=== PATIENT | male | born 1960 | race Caucasian/White ===

== ENCOUNTER → 2017-02-03 | Outpatient (CLI) | payer OTHER ==
[~2017-02-03] MED LIST: AMT10T PO; ASP81CT PO; ATOR10TA66 PO; ATRV10T PO; CARV12.52 PO; CATHETER FLUSH 10 ML SYR IV PRN; CEPH500C PO; DOXY-233 PO; DXCC100C PO; ENAL2.5T PO; ENAL20TA76 PO; FURO40TA4 PO; GLIM2TAB PO; GLIM4TAB PO; GLMP4T PO; GLYBURIDE; HYDR1TAB PO; INSU100I10 SQ; INSU100I34 SQ; INSU100V6 SQ; LEVO500T69 PO; METO-272 PO; METR500T PO; MTF500T PO; MTP50T PO; OXYC-12 PO; POTA99TA7 PO; RANI75TA30 PO; SACU1TAB PO; SPRN25T PO; TAMS0.4C2 PO; TERA5CAP10 PO; TICA90TA PO; TRIA1CAP4 PO; TRZS2T PO; VLS80C PO; [UNRECOGNIZED DRUG - CODE] PO
[2017-02-03 09:01] VITALS: BP 148/94
[2017-02-03 09:14] VITALS: BP 217/120
--- NOTE | 2017-02-04 08:45 | STRESS TEST ---
DATE OF SERVICE: 02/03/2017 EXERCISE MYOVIEW STRESS TEST REPORT REFERRING PHYSICIAN: In summary, the patient started exercising with a baseline heart rate, blood pressure and EKG mentioned above. He was able to exercise for a total of 7 minutes and 45 seconds on standard Iván protocol, achieving maximum heart rate of 150 beats per minute which was 91% of maximum expected heart rate. With peak exercise level blood pressure was 244/129. EKG was showing nondiagnostic changes. During recovery, heart rate and blood pressure returned to baseline. EKG returned to baseline. The resting and stress images were reviewed and compared in the short axis, horizontal long axis, and vertical long axis views. Review of the images showed decreased uptake involving the whole inferior wall and inferoapical segment with mild reversibility. SSS5, SDS 5, TID value 1.21. On the gated images, the left ventricle appeared to be dilated with diffuse left ventricular hypokinesia calculated ejection fraction 28%. CONCLUSION: 1. Good exercise tolerance a total of 7 minutes and 45 seconds on standard Iván protocol, total of 9.3 METS achieving 91% of maximum expected heart rate. 2. Baseline EKG abnormality with nondiagnostic EKG changes with exercise returned to baseline during recovery. 3. Hypertensive response to exercise, returned to baseline during recovery. 4. Reversible ischemia involving the whole inferior wall and inferolateral wall. 5. Dilated left ventricle with transient ischemic dilatation with TID value 1.21. 6. Diffuse left ventricular hypokinesia with a calculated ejection fraction 28%. Job ID: [id number] DocumentID: [id number] Dictated Date: 02/03/2017 14:41:27 Sterile Proc Tech Date: 02/03/2017 18:13:22 Dictated By: MICHELLE CANSECO MD
== END ==
LOC: CARD 07:19
PROVIDERS: ATTEND Internal Medicine Cardiovascular Disease
DX: I25.10 Atherosclerotic heart disease of native coronary artery without angina pectoris (principal); I42.9 Cardiomyopathy, unspecified; E11.9 Type 2 diabetes mellitus without complications; I10 Essential (primary) hypertension; R91.1 Solitary pulmonary nodule
CPT/HCPCS: 78452; 93017

== ENCOUNTER 2017-02-05 09:01 | Day surgery (SDC) | payer OTHER ==
[~2017-02-05] VITALS: Ht 172.7 cm; Wt 107.5 kg
[2017-02-05] VITALS (7 sets, daily range): BP systolic 105–174; BP diastolic 39–108
[~2017-02-05 09:01] MED LIST changes: -CATHETER FLUSH 10 ML SYR IV PRN; -INSU100I34 SQ; -METO-272 PO; -SACU1TAB PO; -TAMS0.4C2 PO
[2017-02-05] MEDS ORDERED: NS IV 1000 ML 1,000 ML ONE (09:04)
[2017-02-05] MEDS ORDERED: HEParin (CATH LAB) 2,000 ML IV ONE (09:04)
--- NOTE | 2017-02-05 09:36 | Diagnostic Imaging Report ---
INDICATION: Pre-catheter evaluation. COMPARISON: 05/08/2014. FINDINGS: Upright portable view of the chest is obtained. Heart size is normal. The pulmonary vessels appear unremarkable. There is no pneumothorax, mediastinal widening or pleural fluid. Lungs are clear. IMPRESSION: Negative chest. Dictated by: Dictated on workstation # [id number]
[2017-02-05 09:40] LABS: MEAN PLATELET VOLUME 12.6 FL (7.4-10.4); RED BLOOD COUNT 5.47 10^6/uL (4.35-5.85); RED CELL DISTRIBUTION WIDTH 13.1 % (10.0-14.5); WHITE BLOOD COUNT 8.7 10^3/uL (4.3-11.0)
[2017-02-05 09:44] LABS: KETONES,URINE 1+ (NEGATIVE); LEUKOCYTE ESTERASE ,URINE 1+ (NEGATIVE); NITRITE,URINE NEGATIVE (NEGATIVE); PH,URINE 5 (5-9); PROTEIN,URINE 3+ (NEGATIVE); UROBILINOGEN,URINE NORMAL (NORMAL)
[2017-02-05] MEDS ORDERED: NS IV 1000 ML 1,000 ML IV SCH (09:45)
[2017-02-05] MEDS ORDERED: fentaNYL INJECTION 100 MCG/2 ML AMP ONE (09:45)
[2017-02-05] MEDS ORDERED: MIDAZOLAM 5 MG/5 ML (VERSED) VIAL ONE (09:45)
[2017-02-05] MEDS ORDERED: FURO40TA4 PO (09:47)
[2017-02-05] MEDS ORDERED: INSU100I34 SQ ×2 (09:47)
[2017-02-05] MEDS ORDERED: METO-370 PO (09:47)
[2017-02-05] MEDS ORDERED: TAMS0.4C2 PO (09:47)
[2017-02-05] MEDS ORDERED: SACU1TAB PO (09:47)
[2017-02-05] MEDS ORDERED: ATOR10TA66 PO (09:47)
[2017-02-05 09:52] LABS: PROTHROMBIN TIME PATIENT 12.8 SEC (12.2-14.7)
[2017-02-05 09:58] LABS: BILIRUBIN,URINE 1+ (NEGATIVE)
[2017-02-05 10:04] LABS: ALANINE AMINOTRANSFERASE 21 U/L (0-55); ALBUMIN 3.8 GM/DL (3.2-4.5); ANION GAP 10 MMOL/L (5-14); ASPARTATE AMINO TRANSFERASE 16 U/L (5-34); BILIRUBIN,TOTAL 0.8 MG/DL (0.1-1.0); BLOOD UREA NITROGEN 16 MG/DL (7-18); BUN/CREATININE RATIO 13; CALCIUM 9.4 MG/DL (8.5-10.1); CARBON DIOXIDE 22 MMOL/L (21-32); CHLORIDE 107 MMOL/L (98-107); CHOLESTEROL 157 MG/DL (< 200); CREATININE SERUM 1.23 MG/DL (0.60-1.30); DIRECT LDL 99 MG/DL (1-129); GFR ESTIMATED > 60; GLUCOSE 194 MG/DL (70-105); POTASSIUM 4.5 MMOL/L (3.6-5.0); SODIUM 139 MMOL/L (135-145); TOTAL PROTEIN 6.7 GM/DL (6.4-8.2); TRIGLYCERIDES 96 MG/DL (<150); VLDL CHOLESTEROL 19 MG/DL (5-40)
[2017-02-05] MEDS ORDERED: HEParin 1000 UNIT/ML (10ML VIAL) FOR BOLUS ONE (10:28)
[2017-02-05] MEDS ORDERED: NITROGLYCERIN DRIP 25 MG/D5W 250 ML IV ONE (10:28)
--- NOTE | 2017-02-05 10:28 | Cardiac Procedure Note-CS/ASA ---
Pre-Procedure Note Pre-Op Procedure Note H&P Reviewed The H&P was reviewed, patient examined and no changes noted. Date H&P Reviewed: Feb 05, 2017 Time H&P Reviewed: 10: Conscious Sedation Pre-Proced Time Reviewed: ASA Class: 3 Airway Mallampati Classification: (gambell appropriate class) I. II. III, IV Lungs Heart ASA score ASA 1: a normal healthy patient ASA 2: a patient with a mild systemic disease (mid diabetes, controlled hypertension, obesity x ASA 3: a patient with a severe systemic disease that limits activity (angina , COPD, prior Myocardial infarction) ASA 4: a patient with an incapacitating disease that is a constant threat to life (CHF, renal failure) ASA 5: a moribund patient not expected to survive 24 hrs. (ruptured aneurysm) ASA 6: a declared brain patient whose organs are being harvested. For emergent operations, add the letter E after the classification Grade 3 Sedation Plan: Analgesia, Amnesia, Plan communicated to team members, Discussed options with patient/fam, Discussed risks with patient/fam Note The patient is an appropriate candidate to undergo the planned procedure, sedation, and anesthesia. The patient immediately re-assessed prior to indication. MICHELLE CANSECO MD Feb 05, 2017 10:27
[2017-02-05] MEDS ORDERED: ASPIRIN 81 MG CHEW (CHILDREN'S ASA) ONE (10:52)
[2017-02-05] MEDS ORDERED: CLOPIDOGREL 300 MG (PLAVIX) TABLET PO ONE (10:52)
[2017-02-05] MEDS ORDERED: PATIENT MAY USE OWN MEDS, ALL PO SCH (11:00)
--- NOTE | 2017-02-05 11:06 | Cardiac Cath Report ---
Cardiac Cath Report Physician (s)/Child Life Therapist (s) Physician MICHELLE CANSECO MD Pre-Procedure Diagnosis Pre-Procedure Diagnosis: DYSKINESIA Post-Procedure Note Procedure Start Date: Feb 05, 2017 Procedure Start Time: 10:15 Name of Procedure: left heart catheterization, stent to the circumflex artery Findings/Procedure Note PROCEDURE NOTE: After explaining the procedure to the patient, all pros and cons were explained, all questions were answered. The patient signed the consent and then she was placed on the cardiac catheterization laboratory. The patient was placed on the cardiac catheterization laboratory. Groin was prepped SL fashion local anesthesia was used. Sheath placed in the artery. Colt right and left catheter were used to access the coronary system. Pigtail was used to access the left ventricular cavity, pressure was measured, no left ventricular gram was done Patient had severe stenosis at the mid circumflex artery and distal right coronary artery, I decided to proceed with staged intervention. FL guide was used to access the left carotid system, 7000 units of heparin were given, BMW wire was advanced with the circumflex artery that has 99 percent stenosis, predilatation with 2.515 mm Emerge balloon, then a bare metal stent 3.018 mm integrity deployed up to 3.25 mm with excellent results and no residual stenosis , the ostium of the second obtuse marginal branch that is a small artery was pinched. At the end of the procedure the sheath was removed. Closure device Was used FINDINGS: Hemodynamics LV 135/20 and diastolic pressure of 20 Aorta 138/79 mean of 104 ANATOMY: Left Main is of obstructive disease Left Anterior Descending has a patent stent with 40 percent in-stent restenosis mild disease diffusely Left Circumflex has 99 percent stenosis at the midportion, successful angioplasty then stent deployment using Emerge balloon and then bare-metal stent using integrity 3.018 mm stent expanded under 12 jose alejandro to 3.25 mm with excellent results and no residual stenosis, second obtuse marginal branch that has some stenosis was tinged but it is a small artery not amendable to intervention Right Coronory Artery has 95 percent stenosis distally which will be treated at a later point LV Gram was not done CONCLUSION: 1. 99 percent stenosis at the mid to distal circumflex artery successful balloon angioplasty then stent deployment using bare-metal stent integrity 3.0 18 mm expanded to 3.5 mm with excellent results and no residual stenosis, second obtuse marginal branch that has some stenosis at the beginning of the procedure was pinched but it is fairly small artery not amendable to intervention 2. 95 percent stenosis at the distal right coronary artery which will be addressed at a later point 3. Patent stent in the mid LAD known to have 3.0 stent that has 40-50 percent stenosis nonobstructive disease 4. No left ventriculogram was done, mildly elevated left ventricular end- diastolic pressure DISCUSSION AND RECOMMENDATION: Patient has multivessel coronary artery disease, I decided to stage the intervention due to the large amount of contrast used and due to the fact that patient has recent intracranial hemorrhage due to head trauma and I will try to avoid aggressive anticoagulation, patient will be loaded with Plavix today and I will consider intervention on the right coronary artery tomorrow, meanwhile I will continue maximizing medical therapy Anesthesia Type: Conscious Sedation Estimated blood loss (mL): 25 ml Contrast Amount: 98 ml Total Radiation Dose: 1038 mGy Post-Procedure Diagnosis Post-operative diagnosis: CAD MICHELLE CANSECO MD Feb 05, 2017 11:06
[2017-02-05] MEDS ORDERED: FUROSEMIDE 40 MG (LASIX) TAB ONE (11:55)
[2017-02-05] MEDS ORDERED: meTOproloL SUCCINATE 50 MG (TOPROL XL) TAB PO ONE (11:55)
[2017-02-05] MEDS: NS IV 1000 ML 1,000 ML IV SCH ×2 (12:04→21:07)
[2017-02-05] MEDS ORDERED: LOSARTAN 50 MG (COZAAR) TAB PO NR (17:11)
[2017-02-05] MEDS ORDERED: meTOprolol 5 MG/5 ML (LOPRESSOR) VIAL IV NR (17:11)
[2017-02-05] MEDS: AMITRIPTYLINE 10 MG (ELAVIL) TAB PO SCH (21:02)
[2017-02-05] MEDS: FAMOTIDINE 20 MG (PEPCID) TABLET PO SCH (21:02)
[2017-02-05] MEDS: ATORVASTATIN 10 MG (LIPITOR) TABLET PO SCH (21:02)
[2017-02-05] MEDS: inSUlin DETERMIR 1 UNIT/0.01 ML (LEVEMIR) CHARGE PER UNIT SQ SCH (21:06)
[2017-02-05] MEDS ORDERED: meTOprolol 5 MG/5 ML (LOPRESSOR) VIAL IV ONE (21:30)
[2017-02-06] VITALS (13 sets, daily range): BP systolic 137–189; BP diastolic 81–112
[2017-02-06 04:11] LABS: MEAN PLATELET VOLUME 13.2 FL (7.4-10.4); RED BLOOD COUNT 5.12 10^6/uL (4.35-5.85); RED CELL DISTRIBUTION WIDTH 13.1 % (10.0-14.5); WHITE BLOOD COUNT 8.5 10^3/uL (4.3-11.0)
[2017-02-06 04:52] LABS: ANION GAP 9 MMOL/L (5-14); BLOOD UREA NITROGEN 13 MG/DL (7-18); BUN/CREATININE RATIO 11; CALCIUM 8.8 MG/DL (8.5-10.1); CARBON DIOXIDE 24 MMOL/L (21-32); CHLORIDE 107 MMOL/L (98-107); CREATININE SERUM 1.16 MG/DL (0.60-1.30); GFR ESTIMATED > 60; GLUCOSE 152 MG/DL (70-105); POTASSIUM 3.8 MMOL/L (3.6-5.0); SODIUM 140 MMOL/L (135-145)
[2017-02-06] MEDS: NS IV 1000 ML 1,000 ML IV SCH ×4 (07:46→21:58)
[2017-02-06] MEDS: FUROSEMIDE 40 MG (LASIX) TAB PO SCH (07:47)
[2017-02-06] MEDS: FAMOTIDINE 20 MG (PEPCID) TABLET PO SCH ×2 (07:47→21:26)
[2017-02-06] MEDS: ASPIRIN E.C. 81 MG (ECOTRIN) TAB PO SCH (07:47)
[2017-02-06] MEDS: meTOproloL SUCCINATE 50 MG (TOPROL XL) TAB PO SCH (07:47)
[2017-02-06] MEDS: CLOPIDOGREL 75 MG (PLAVIX) TABLET PO SCH (07:47)
[2017-02-06] MEDS ORDERED: LOSARTAN 50 MG (COZAAR) TAB PO ONE (08:00)
[2017-02-06] MEDS ORDERED: ALFUZOSIN HCL 10 MG TAB (UROXATRAL) PO SCH ×2 (09:00→18:00)
[2017-02-06] MEDS ORDERED: MIDAZOLAM 5 MG/5 ML (VERSED) VIAL ONE (09:13)
[2017-02-06] MEDS ORDERED: fentaNYL INJECTION 100 MCG/2 ML AMP ONE (09:13)
[2017-02-06] MEDS ORDERED: HEParin (CATH LAB) 2,000 ML IV ONE (09:14)
[2017-02-06] MEDS ORDERED: NS IV 1000 ML 0 ML ONE (09:14)
[2017-02-06] MEDS ORDERED: NITROGLYCERIN DRIP 25 MG/D5W 250 ML IV ONE (09:42)
[2017-02-06] MEDS ORDERED: HEParin 1000 UNIT/ML (10ML VIAL) FOR BOLUS ONE (09:42)
--- NOTE | 2017-02-06 09:50 | Cardiology Progress Note ---
Subjective Date Seen by Provider: Feb 06, 2017 Time Seen by Provider: 09:48 Subjective/Events-last exam patient is feeling well, blood pressure has been elevated, had some difficulties achieving adequate blood pressure control. Review of Systems General: No Chills, No Night Sweats, No Fatigue, No Malaise, No Appetite, No Other HEENT: No Head Aches, No Visual Changes, No Eye Pain, No Ear Pain, No Dysphasia , No Sinus Congestion, No Post Nasal Drip, No Sore Throat, No Other Pulmonary: No Dyspnea, No Cough, No Pleuritic Chest Pain, No Other Cardiovascular: No: Chest Pain, Edema, Lt Headedness, Orthopnea, Other, Palpitations, Paroxysmal Noc. Dyspnea Objective-Cardiology Exam Last Set of Vital Signs Vital Signs 02/06/17 07:44 Temp 98.9 Pulse 69 Resp 16 B/P (MAP) 189/112 Pulse Ox 96 O2 Delivery Room Air Capillary Refill : Less Than 3 Seconds I&O Intake and Output 02/06/17 00:00 Intake Total 3780 ml Output Total 850 ml Balance 2930 ml Intake Oral 2780 ml IV Total 1000 ml Output Urine Total 850 ml # Voids 2 # Bowel Movements 1 General: Alert, Oriented X3, Cooperative HEENT: Atraumatic, PERRLA Neck: Supple, No JVD, No Thyromegaly Lungs: Clear to Auscultation, Normal Air Movement Heart: Regular Rate, Normal S1, Normal S2, No Murmurs Abdomen: Normal Bowel Sounds, Soft, No Tenderness, No Hepatosplenomegaly, No Masses Extremities: No Clubbing, No Cyanosis, No Edema, Normal Pulses, No Tenderness/ Swelling Skin: No Rashes, No Breakdown, No Significant Lesion Neuro: Normal Gait, Normal Speech, Strength at 5/5 X4 Ext, Normal Tone, Sensation Intact Psych/Mental Status: Mental Status NL, Mood NL Results Lab Laboratory Tests 02/06/17 03:57 A/P-Cardiology Admission Diagnosis Coronary artery disease Congestive heart failure, chronic compensated left ventricular systolic dysfunction, ischemic cardiomyopathy Hypertension Hyperlipidemia Diabetes mellitus Tobaccoism Assessment/Plan Coronary artery disease, status post stenting to the circumflex artery, planning to proceed with stenting of the right coronary artery, has a patent stent in the LAD. Next Congestive heart failure, chronic compensated left ventricular systolic dysfunction, ischemic cardiomyopathy, ejection fraction was 28 percent Hypertension, resistant blood pressure, planning to start Entresto today in addition to the beta blockers Hyperlipidemia, continue on statin Status post subarachnoid hemorrhage secondary to head trauma, trying to avoid aggressive anticoagulation, so far he is tolerating aspirin and Plavix, I will avoid IIb /IIIa Diabetes mellitus, followed and managed by primary care physiciannext Tobaccoism, educated on avoiding tobacco product MICHELLE CANSECO MD Feb 06, 2017 09:50
--- NOTE | 2017-02-06 09:51 | Cardiac Procedure Note-CS/ASA ---
Pre-Procedure Note Pre-Op Procedure Note H&P Reviewed The H&P was reviewed, patient examined and no changes noted. Date H&P Reviewed: Feb 06, 2017 Time H&P Reviewed: 09:50 Conscious Sedation Pre-Proced Time Reviewed: 09:50 ASA Class: 3 Airway Mallampati Classification: (chicken [place] appropriate class) I. II. III, IV Lungs Heart ASA score ASA 1: a normal healthy patient ASA 2: a patient with a mild systemic disease (mid diabetes, controlled hypertension, obesity x ASA 3: a patient with a severe systemic disease that limits activity (angina , COPD, prior Myocardial infarction) ASA 4: a patient with an incapacitating disease that is a constant threat to life (CHF, renal failure) ASA 5: a moribund patient not expected to survive 24 hrs. (ruptured aneurysm) ASA 6: a declared brain patient whose organs are being harvested. For emergent operations, add the letter E after the classification Grade 3 Sedation Plan: Analgesia, Amnesia, Plan communicated to team members, Discussed options with patient/fam, Discussed risks with patient/fam Note The patient is an appropriate candidate to undergo the planned procedure, sedation, and anesthesia. The patient immediately re-assessed prior to indication. MICHELLE CANSECO MD Feb 06, 2017 09:50
--- NOTE | 2017-02-06 10:40 | Cardiac Cath Report ---
Cardiac Cath Report Physician (s)/Business Excellence Leader (s) Physician MICHELLE CANSECO MD Pre-Procedure Diagnosis Pre-Procedure Diagnosis: DYSKINESIA Post-Procedure Note Procedure Start Date: Feb 06, 2017 Procedure Start Time: 10:35 Name of Procedure: PTCA and stent to the right coronary artery Findings/Procedure Note PTCA patient was prepped in sterile fashion, local anesthesia applied, 6 Pashto sheath was placed in the right femoral artery, Colt right guide was used, patient was given 6000 units of heparin, BMW wire was advanced through the right coronary artery that is known to have 90 percent stenosis, predilatation with 2.512 mm balloon then I deployed a bare metal stent integrity 3.015 mm expanded to 3.25 with excellent results, no residual stenosis. At the end of the procedure minx device the point Artery RCA Pre procedure stenosis 90 Post procedure stenosis 0 Conclusion: Successful balloon angioplasty and stenting to the distal right coronary artery with excellent results, no residual stenosis using bare-metal stent 3.015 mm integrity stent Anesthesia Type: Conscious Sedation Estimated blood loss (mL): 25 ml Contrast Amount: 70 ml Total Radiation Dose: 1093 mGy Post-Procedure Diagnosis Post-operative diagnosis: coronary artery disease MICHELLE CANSECO MD Feb 06, 2017 10:40
[2017-02-06] MEDS ORDERED: PATIENT MAY USE OWN MEDS, ALL PO SCH (10:45)
[2017-02-06] MEDS: inSUlin DETERMIR 1 UNIT/0.01 ML (LEVEMIR) CHARGE PER UNIT SQ SCH ×2 (12:20→21:26)
[2017-02-06] MEDS: ATORVASTATIN 10 MG (LIPITOR) TABLET PO SCH (21:26)
[2017-02-06] MEDS: AMITRIPTYLINE 10 MG (ELAVIL) TAB PO SCH (21:26)
[2017-02-06] MEDS: SACUBITRIL/VALSARTAN 24/26 MG (ENTRESTO) TABLET PO SCH (21:26)
[2017-02-07] MEDS: NS IV 1000 ML 1,000 ML IV SCH ×2 (03:22→06:40)
[2017-02-07 04:00] VITALS: BP 161/96
[2017-02-07 05:47] LABS: MEAN PLATELET VOLUME 13.6 FL (7.4-10.4); RED BLOOD COUNT 5.25 10^6/uL (4.35-5.85); RED CELL DISTRIBUTION WIDTH 12.9 % (10.0-14.5); WHITE BLOOD COUNT 7.9 10^3/uL (4.3-11.0)
[2017-02-07 06:04] LABS: ANION GAP 11 MMOL/L (5-14); BLOOD UREA NITROGEN 12 MG/DL (7-18); BUN/CREATININE RATIO 10; CARBON DIOXIDE 24 MMOL/L (21-32); CHLORIDE 104 MMOL/L (98-107); CREATININE SERUM 1.18 MG/DL (0.60-1.30); GFR ESTIMATED > 60; GLUCOSE 157 MG/DL (70-105); POTASSIUM 3.6 MMOL/L (3.6-5.0); SODIUM 139 MMOL/L (135-145)
[2017-02-07 08:18] VITALS: BP 156/92
[2017-02-07] MEDS: FUROSEMIDE 40 MG (LASIX) TAB PO SCH (09:01)
[2017-02-07] MEDS: FAMOTIDINE 20 MG (PEPCID) TABLET PO SCH (09:01)
[2017-02-07] MEDS: SACUBITRIL/VALSARTAN 24/26 MG (ENTRESTO) TABLET PO SCH (09:01)
[2017-02-07] MEDS: meTOproloL SUCCINATE 50 MG (TOPROL XL) TAB PO SCH (09:01)
[2017-02-07] MEDS: CLOPIDOGREL 75 MG (PLAVIX) TABLET PO SCH (09:01)
[2017-02-07] MEDS: ASPIRIN E.C. 81 MG (ECOTRIN) TAB PO SCH (09:01)
[2017-02-07] MEDS: inSUlin DETERMIR 1 UNIT/0.01 ML (LEVEMIR) CHARGE PER UNIT SQ SCH (09:04)
--- NOTE | 2017-02-07 12:13 | Cardiology Discharge Summary ---
Diagnosis/Chief Complaint Date of Admission February 05, 2017 Date of Discharge February 07, 2017 Admission Diagnosis Coronary artery disease Congestive heart failure, chronic compensated left ventricular systolic dysfunction, ischemic cardiomyopathy Hypertension Hyperlipidemia Diabetes mellitus Tobaccoism Discharge Diagnosis coronary artery disease Congestive heart failure, chronic compensated left ventricular systolic dysfunction, ischemic cardiomyopathy Chief Complaint/HPI Chief Complaint/HPI 56 years old gentleman with history of coronary artery disease, hypertension hyperlipidemia. Had an abnormal stress test, severe cardiomyopathy noted during stress test with baseline normal left ventricular function in the past, I proceed with cardiac catheterization as an elective procedure which showed multivessel coronary artery disease, I decided to stage the procedure to limit the amount of exposure to anticoagulation due to the recent head trauma, he tolerated the first procedure well, tolerated the second procedure well, limited exposure to contrast, I used only heparin for IV anticoagulation, he tolerated the addition of Plavix to the aspirin and he has been doing well. Planning to discharge home today Discharge Summary Hospital Course Hospital Course Coronary artery disease, cardiac catheterization showed severe stenosis at the distal circumflex artery with successful bare-metal stenting using 3.018 mm integrity stent expanded to 3.5 mm, second obtuse marginal branch has some stenosis which was pinched at the end of the procedure, fairly small artery. Severe stenosis at the distal right coronary artery was successful stenting using bare-metal stent 3.015 mm with excellent results, no residual stenosis, patent stent in the mid LAD which are known to have 3.0 mm stent, no left ventricular gram was done. I will continue on aspirin and Plavix for this time he was educated in length about condition and compliance with medicine Congestive heart failure, chronic compensated left ventricular systolic dysfunction, ischemic cardiomyopathy, ejection fraction was 28 percent, continue on current medications and monitor his arms and response Hypertension, resistant blood pressure, started on Entresto and continue beta blockers and monitor Hyperlipidemia, continue on statin Status post subarachnoid hemorrhage secondary to head trauma, trying to avoid aggressive anticoagulation, so far he is tolerating aspirin and Plavix, I will avoid IIb /IIIa Diabetes mellitus, followed and managed by primary care physicianclaire Aiken, educated on avoiding tobacco product Labs Laboratory Tests 02/05/17 09:20: Urine Specific Dewitt 1.025H, Urine Protein 3+H, Urine Glucose (UA) 2+H, Urine Ketones 1+H, Urine Bilirubin 1+H, Urine Leukocyte Esterase 1+H 02/05/17 09:34: Mean Platelet Volume 12.6H, Glucose Level 194H 02/05/17 22:20: 02/06/17 03:57: Mean Platelet Volume 13.2H, Glucose Level 152H 02/06/17 20:56: Glucometer 222H 02/07/17 05:00: Platelet Count 129L, Mean Platelet Volume 13.6H, Glucose Level 157H Procedures None. Discharge Physical Examination Allergies: Coded Allergies: No Known Drug Allergies (Unverified , 01/30/10) Vitals & I&Os Vital Signs Date Time Temp Pulse Resp B/P (MAP) Pulse Ox O2 Delivery O2 Flow Rate FiO2 02/07/17 08:18 99.2 81 18 156/92 95 Room Air General Appearance: Alert, Oriented X3, Cooperative, No Acute Distress HEENT: Atraumatic, PERRLA Respiratory: Clear to Auscultation, Normal Air Movement Cardiovascular: Regular Rate, Normal S1, Normal S2, No Murmurs Abdominal: Normal Bowel Sounds, Soft, No Tenderness, No Hepatosplenomegaly, No Masses Extremities: No Clubbing, No Cyanosis, No Edema, Normal Pulses, No Tenderness/ Swelling Skin: No Rashes, No Breakdown, No Significant Lesion Neuro: Normal Gait, Normal Speech, Strength at 5/5 X4 Ext, Normal Tone, Sensation Intact, Cranial Nerves 3-12 NL, Reflexes 2+ Psych/Mental Status: Mental Status NL, Mood NL Discharge Home Medications Reviewed and agree with Discharge Medication list on patient's Discharge Instruction sheet Instructions to Patient/Family Please see electonic discharge instructions given to patient. MICHELLE CANSECO MD Feb 07, 2017 12:13
[2017-02-07] MEDS ORDERED: CLOP75TA28 PO (12:14)
--- NOTE | 2017-02-07 12:14 | Discharge Inst-Post CATH ---
Discharge Inst-CATH Post Cardiac Cath D/C Inst Follow Up/Plan Appointment with Dr. Peraza's office next week CARDIAC CATH DISCHARGE INSTRUCTIONS *Hold Metformin for 48 hours post heart cath. ACTIVITY * Go Home directly and rest. * Limit activity of the leg (or wrist if it was used) for 7 days including aerobics, swimming, jogging, bicycling, etc. * Restrict stair-climbing for 7 days if possible, if not, climb up with your non -cath leg, then bring together on the same step. * Avoid lifting, pushing, pulling or excessive movement of the affected extremity for 7 days. * Customary sexual activity may be resumed after 2 days-use caution not to use a position that strains or causes pain to the affected extremity. * No driving for 24 hours. * NO SMOKING. * Avoid straining for bowel movements for 7 days. * Gentle walking on level ground is allowed. * Returning to work will depend on the type of procedure and the results. Your doctor will discuss this with you. CALL YOUR DOCTOR FOR ANY OF THE FOLLOWING: *If bleeding from the puncture site occurs- Apply gentle pressure to site with clean cloth and call your doctor or EMS. * If a knot or lump forms under the skin, increases in size, or causes pain. * If bruising appears to be worsening or moving further down your leg instead of disappearing. * Temperature above 101 F. CARE OF YOUR GROIN INCISION; * Bruising or purple discoloration of the skin near the puncture site is common. * You may shower only, no bathtub bathing for 5 days. Be careful to avoid slipping as your leg may feel stiff. * If a closure device was used on your femoral artery, please see the attached guide regarding care of the device and your leg. * REMOVE the dressing from your groin the next day after your procedure in the shower. CARE OF YOUR WRIST INCISION; * Bruising or purple discoloration of the skin near the puncture site is common. * You may shower. * DO NOT submerge wrist. * Remove dressing in 24 hours. MICHELLE PERAZA MD Feb 07, 2017 12:14
[2017-02-07 12:52] VITALS: BP 150/90
== END 2017-02-07 12:50 | disposition home or self-care (01) ==
LOC: CATH 09:01 → ICU 11:15 → CATH 02-07 12:50
PROVIDERS: ATTEND Internal Medicine Cardiovascular Disease
DX: R94.39 Abnormal result of other cardiovascular function study (principal); I25.10 Atherosclerotic heart disease of native coronary artery without angina pectoris; I50.22 Chronic systolic (congestive) heart failure; I25.5 Ischemic cardiomyopathy; I10 Essential (primary) hypertension; E78.5 Hyperlipidemia, unspecified; E11.9 Type 2 diabetes mellitus without complications; S09.90XS Unspecified injury of head, sequela; Z79.899 Other long term (current) drug therapy; Z79.84 Long term (current) use of oral hypoglycemic drugs; Z72.0 Tobacco use; Z95.5 Presence of coronary angioplasty implant and graft
CPT/HCPCS: 36415; 71010; 80048; 80053; 80061; 81000; 82962; 85027; 85347; 85610; 85730; 87081; 92928; 93005; 93458

== ENCOUNTER → 2017-09-29 | Outpatient (CLI) | payer OTHER ==
[~2017-09-29] MED LIST changes: +CLOP75TA28 PO; +INSU100I34 SQ; +METO-370 PO; +SACU1TAB PO; +TAMS0.4C2 PO
== END ==
LOC: CARD 12:40
PROVIDERS: ATTEND Physician Assistant
DX: I25.10 Atherosclerotic heart disease of native coronary artery without angina pectoris (principal); I50.9 Heart failure, unspecified; I11.0 Hypertensive heart disease with heart failure; E11.9 Type 2 diabetes mellitus without complications; I34.0 Nonrheumatic mitral (valve) insufficiency
CPT/HCPCS: 93306

== ENCOUNTER → 2018-03-24 | Outpatient (CLI) | payer OTHER ==
--- NOTE | 2018-03-24 12:10 | Diagnostic Imaging Report ---
CLINICAL INDICATION: Patient with hypertension. EXAMINATION: Renal ultrasound with Doppler interrogation. COMPARISON: Ultrasound of both kidneys dated 12/26/2012. FINDINGS: There is interval development of a 1.5 cm cyst involving the knj-ju[place]jg[place]ot aspect of left kidney. Otherwise, both kidneys are normal in size, shape, echogenicity and cortical thickness without hydronephrosis, stones, or other focal lesions with the right and left kidneys measuring 9.7 cm and 9.9 cm in their craniocaudal dimensions, respectively. Abdominal aorta (peak systolic velocity): 106 cm/sec Right main renal artery Doppler(peak systolic): Proximal: 122 cm/sec; 1.15 RA/AO ratio Mid: 88 cm/sec; 0.83 RA/AO ratio Distal: 51 cm/sec; 0.5 RA/AO ratio [place] RI: 0.65-0.72 Left main renal artery Doppler(peak systolic): Proximal: X cm/sec; X RA/AO ratio of note, the proximal left renal artery was obscured by bowel gas and unable to be evaluated. Mid: 60 cm/sec; 0.6 RA/AO ratio Distal: 64 cm/sec; 0.6 RA/AO ratio [place] RI: 0.67-0.72 IMPRESSION: 1: Interval development of a small left renal cyst. 2: The proximal left main renal artery was obscured by overlying bowel gas and cannot be evaluated. Otherwise, unremarkable bilateral renal ultrasound with no evidence of renal artery stenosis. Dictated by: Dictated on workstation # [id number]
== END ==
LOC: RAD 06:54
PROVIDERS: ATTEND Internal Medicine Cardiovascular Disease
DX: N28.1 Cyst of kidney, acquired (principal); I25.10 Atherosclerotic heart disease of native coronary artery without angina pectoris; I10 Essential (primary) hypertension; E11.9 Type 2 diabetes mellitus without complications; Z72.0 Tobacco use
CPT/HCPCS: 93975

== ENCOUNTER 2019-09-15 15:59 | Inpatient (IN) | payer OTHER ==
[~2019-09-15] VITALS: Ht 172.7 cm; Wt 98.0 kg
[~2019-09-15 15:59] MED LIST changes: -METO-370 PO; +METO50TA7 PO; -SACU1TAB PO; +SACU1TAB2 PO
[2019-09-15] MEDS ORDERED: NS IV 1000 ML 1,000 ML IV SCH (16:07)
[2019-09-15] MEDS ORDERED: meTOprolol 5 MG/5 ML (LOPRESSOR) VIAL IV ONE (16:15)
[2019-09-15] MEDS ORDERED: FUROSEMIDE 40 MG/4 ML INJ (LASIX) IVP ONE (16:15)
[2019-09-15 16:19] LABS: BASOPHILS % (AUTO) 0 % (0-10); EOSINOPHILS # (AUTO) 0.1 10^3/uL (0.0-0.3); EOSINOPHILS % (AUTO) 1 % (0-10); HEMATOCRIT 48 % (40-54); HEMOGLOBIN 16.7 G/DL (13.3-17.7); LYMPHOCYTES # (AUTO) 1.9 X 10^3 (1.0-4.0); LYMPHOCYTES % (AUTO) 21 % (12-44); MEAN CORPUSCULAR HEMOGLOBIN 30 PG (25-34); MEAN CORPUSCULAR HGB CONC 35 G/DL (32-36); MEAN CORPUSCULAR VOLUME 87 FL (80-99); MEAN PLATELET VOLUME 13.5 FL (7.4-10.4); MONOCYTES # (AUTO) 0.8 X 10^3 (0.0-1.0); MONOCYTES % (AUTO) 9 % (0-12); NEUTROPHILS # (AUTO) 6.3 X 10^3 (1.8-7.8); NEUTROPHILS % (AUTO) 69 % (42-75); PLATELET COUNT 158 10^3/uL (130-400); RED CELL DISTRIBUTION WIDTH 13.1 % (10.0-14.5); WHITE BLOOD COUNT 9.2 10^3/uL (4.3-11.0)
--- NOTE | 2019-09-15 16:24 | ED Dyspnea ---
General Stated Complaint: RESP DISTRESS History of Present Illness Date Seen by Provider: Sep 15, 2019 Time Seen by Provider: 16:10 Initial Comments 58 year old male with known CAD and HTN stopped all his medications 2 weeks ago, because they were making him feel dizzy. He resumed the Carvedilol 09/11/19. He was going to start his Lasix this coming Wednesday. He wanted to determine which medication was causing his symptoms. Timing/Duration: 1 Week Severity: Mild Prior Episodes/Possible Cause: Occasional Episodes Associated Symptoms: Cough Allergies and Home Medications Allergies Coded Allergies: No Known Drug Allergies (Unverified , 01/30/10) Home Medications Amitriptyline Hcl 10 Mg Tab, 10 MG PO HS, (Reported) Aspirin 81 Mg Chew, 81 MG PO DAILY, (Reported) Atorvastatin Calcium 10 Mg Tablet, 10 MG PO HS, (Reported) Clopidogrel Bisulfate 75 Mg Tablet, 75 MG PO DAILY Prescribed by: MICHELLE PERAZA on 02/07/17 1214 Furosemide 40 Mg Tablet, 40 MG PO DAILY, (Reported) Insulin Glargine,Hum.rec.anlog 100 Unit/1 Ml Insuln.pen, 20 UNIT SQ DAILY, (Reported) Insulin Glargine,Hum.rec.anlog 100 Unit/1 Ml Insuln.pen, 40 UNIT SQ HS, (Reported) Metoprolol Succinate 50 Mg Tab.er.24h, 50 MG PO DAILY, (Reported) Ranitidine Hcl 150 Mg Tablet, 150 MG PO BID, (Reported) Sacubitril/Valsartan 1 Each Tablet, 1 TAB PO BID, (Reported) Tamsulosin HCl 0.4 Mg Cap.er.24h, 0.4 MG PO DAILY, (Reported) Patient Home Medication List Home Medication List Reviewed: Yes Review of Systems Review of Systems Constitutional: no symptoms reported, see HPI Respiratory: see HPI, dyspnea on exertion; No phlegm; short of breath Cardiovascular: no symptoms reported, see HPI; No chest pain All Other Systems Reviewed Negative Unless Noted: Yes Past Ayrqdci-Mswgjp-Gpwjdp Hx Past Med/Social Hx: Reviewed Nursing Past Med/Soc Hx Patient Social History Type Used: Smokeless Tobacco Recent Foreign Travel: No Contact w/Someone Who Travel: No Immunizations Up To Date Tetanus Booster (TDap): Less than 5yrs Date of Pneumonia Vaccine: Jul 13, 2012 Date of Influenza Vaccine: Apr 28, 2013 Past Medical History Reproductive Disorders: No Sexually Transmitted Disease: No Benign Prostatic Hyperpl Diabetes, Non-Insulin dep Loss of Vision: Denies Adverse Reaction/Blood Tranf: No Family Medical History Congenital heart disease 03 MOTHER Family history: Diabetes mellitus 03 FATHER 03 MOTHER 09 SISTER Heart Disease Physical Exam Vital Signs Vital Signs - First Documented 09/15/19 16:03 Temp 36.6 Pulse 93 Resp 30 B/P (MAP) 175/118 (137) Pulse Ox 96 O2 Delivery Nasal Cannula O2 Flow Rate 2.00 Capillary Refill : Height, Weight, BMI Height: 5'8.00" Weight: 237lbs. 0.0oz. 107.415384qq; 36.0 BMI Method:Stated General Appearance: No Apparent Distress, WD/WN HEENT: PERRL/EOMI, TMs Normal, Normal ENT Inspection, Pharynx Normal Neck: Full Range of Motion, Normal Inspection, Non Tender, Supple Respiratory: Chest Non Tender, Lungs Clear, Normal Breath Sounds Cardiovascular: Regular Rate, Rhythm, No Murmur, Normal Peripheral Pulses Peripheral Pulses: 0 Carotid (R), 0 Carotid (L), 0 Femoral (R), 0 Femoral (L), 0 Dorsalis Pedis (R), 0 Left Dors-Pedis (L), 0 Radial Pulses (R), 0 Radial Pulses (L) Gastrointestinal: Normal Bowel Sounds, Non Tender, Soft Neurologic/Psychiatric: Alert, Oriented x3, No Motor/Sensory Deficits, Normal Mood/Affect Skin: Normal Color, Warm/Dry Progress/Results/Core Measures Results/Orders Lab Results Laboratory Tests Test 09/15/19 16:07 09/15/19 16:40 Range/Units White Blood Count 9.2 4.3-11.0 10^3/uL Red Blood Count 5.55 4.35-5.85 10^6/uL Hemoglobin 16.7 13.3-17.7 G/DL Hematocrit 48 40-54 % Mean Corpuscular Volume 87 80-99 FL Mean Corpuscular Hemoglobin 30 25-34 PG Mean Corpuscular Hemoglobin Concent 35 32-36 G/DL Red Cell Distribution Width 13.1 10.0-14.5 % Platelet Count 158 130-400 10^3/uL Mean Platelet Volume 13.5 H 7.4-10.4 FL Neutrophils (%) (Auto) 69 42-75 % Lymphocytes (%) (Auto) 21 12-44 % Monocytes (%) (Auto) 9 0-12 % Eosinophils (%) (Auto) 1 0-10 % Basophils (%) (Auto) 0 0-10 % Neutrophils # (Auto) 6.3 1.8-7.8 X 10^3 Lymphocytes # (Auto) 1.9 1.0-4.0 X 10^3 Monocytes # (Auto) 0.8 0.0-1.0 X 10^3 Eosinophils # (Auto) 0.1 0.0-0.3 10^3/uL Basophils # (Auto) 0.0 0.0-0.1 10^3/uL Sodium Level 137 135-145 MMOL/L Potassium Level 4.3 3.6-5.0 MMOL/L Chloride Level 102 98-107 MMOL/L Carbon Dioxide Level 24 21-32 MMOL/L Anion Gap 11 5-14 MMOL/L Blood Urea Nitrogen 16 7-18 MG/DL Creatinine 1.33 H 0.60-1.30 MG/DL Estimat Glomerular Filtration Rate 55 BUN/Creatinine Ratio 12 Glucose Level 391 H 70-105 MG/DL Calcium Level 9.1 8.5-10.1 MG/DL Corrected Calcium 9.3 8.5-10.1 MG/DL Total Bilirubin 0.9 0.1-1.0 MG/DL Aspartate Amino Transf (AST/SGOT) 32 5-34 U/L Alanine Aminotransferase (ALT/SGPT) 55 0-55 U/L Alkaline Phosphatase 104 40-136 U/L Troponin I 0.101 H <0.028 NG/ML B-Type Natriuretic Peptide 1236.4 H <100.0 PG/ML Total Protein 6.4 6.4-8.2 GM/DL Albumin 3.8 3.2-4.5 GM/DL Amylase Level 42 25-125 U/L TSH [place] Testing 1.85 0.35-4.94 UIU/ML Urine Color YELLOW Urine Clarity CLEAR Urine pH 5.5 5-9 Urine Specific [place] 1.025 H 1.016-1.022 Urine Protein 2+ H NEGATIVE Urine Glucose (UA) 2+ H NEGATIVE Urine Ketones TRACE H NEGATIVE Urine Nitrite NEGATIVE NEGATIVE Urine Bilirubin NEGATIVE NEGATIVE Urine Urobilinogen 0.2 < = 1.0 MG/DL Urine Leukocyte Esterase NEGATIVE NEGATIVE Urine RBC (Auto) TRACE-I NEGATIVE Urine RBC 0-2 /HPF Urine WBC RARE /HPF Urine Crystals PRESENT H /LPF Urine Amorphous Sediment RARE HEBERT URATES H /LPF Urine Bacteria TRACE /HPF Urine Casts PRESENT /LPF Urine Hyaline Casts 0-2 H /LPF Urine Mucus NEGATIVE /LPF Urine Culture Indicated NO My Orders Orders - ROBYNJEROD Leon MESH CUTTER Amylase (09/15/19 16:07) BNP (09/15/19 16:07) Cbc With Automated Diff (09/15/19 16:07) Comprehensive Metabolic Panel (09/15/19 16:07) Ua Culture If Indicated (09/15/19 16:07) Troponin I (09/15/19 16:07) Chest 1 View, Ap/Pa Only (09/15/19 16:07) Ed Iv/Invasive Line Start (09/15/19 16:07) Ns Iv 1000 Ml (Sodium Chloride 0.9%) (09/15/19 16:07) Ekg Tracing (09/15/19 16:07) Furosemide Injection (Lasix Injection) (09/15/19 16:15) Metoprolol Tartrate Injection (Lopressor (09/15/19 16:15) Aspirin Chewable Tablet (Baby Aspirin Ch (09/15/19 17:30) Thyroid Analyzer (09/15/19 17:30) Medications Given in ED Current Medications Medications Dose Ordered Sig/Zulma Route Start Time Stop Time Status Last Admin Dose Admin Aspirin 324 mg ONCE ONCE PO 09/15/19 17:30 09/15/19 17:31 DC 09/15/19 17:28 324 MG Furosemide 40 mg ONCE ONCE IVP 09/15/19 16:15 09/15/19 16:16 DC 09/15/19 16:29 40 MG Metoprolol Tartrate 5 mg ONCE ONCE IV 09/15/19 16:15 09/15/19 16:16 DC 09/15/19 16:29 5 MG Vital Signs/I&O 09/15/19 16:03 Temp 36.6 Pulse 93 Resp 30 B/P (MAP) 175/118 (137) Pulse Ox 96 O2 Delivery Nasal Cannula O2 Flow Rate 2.00 Progress Progress Note : Time: 16:10 Progress Note Patient seen and evaluated, will obtain labs, chest x-ray and continue oxygen per nasal cannula at 2-3 L to maintain SaO2 greater than 95%. 1645 give metoprolol 5 mg IV for hypertension. [address] Peraza per phone discussed patient, recommended admission. 1740 Dr. Peraza in ED to see patient. He will write orders for resumption of cardiac meds. 175 Dr. Jean Cortez agreed with plans for admission, Sliding Scale B Insulin 1830 Patient stable, blood pressure 150s/90s. 5 Awaiting bed placement on [address] [place] [address]. 2004 Patient has remained stable, no complaints, transferred to [address] [place] [address]. Initial ECG Impression Date: Sep 15, 2019 Initial ECG Impression Time: 16:20 Initial ECG Rate: 87 Initial ECG Rhythm: Normal Sinus Initial ECG Intervals: Normal Initial ECG Intervals ME 144, QRSD 88, QT 364, QTc 438 [place] P 60, QRS 42 Initial ECG Impression: Normal Initial ECG Comparisson: Unchanged Diagnostic Imaging Diagonstic Imaging: Xray Plain Films/CT/US/NM/MRI: chest Comments NAME: ANGIE ROCHA [facility] REC#: [id number] PT STATUS: REG ER : 1960 PHYSICIAN: JEROD CARLSON ADMIT DATE: 09/15/19/ER Draft Date of Exam:09/15/19 CHEST 1 VIEW, AP/PA ONLY EXAMINATION: Chest radiograph, portable AP view. DATE: 09/15/2019 4:59 PM. INDICATION: 58-year-old male, difficulty breathing for 2 days. COMPARISON: February 05, 2017. FINDINGS: Stable overall appearance of the cardiomediastinal silhouette. Lung volumes are somewhat low. There is no identified pneumothorax. There is nonspecific left basilar airspace consolidation with obscuration of visualization of the left hemidiaphragm. There are streaky opacities in the right lung base. IMPRESSION: 1. Nonspecific bibasilar airspace consolidation which may relate to infiltrate, atelectasis and/or small effusions. 2. Low lung volumes. Dictated on workstation # [id number] Dict: 09/15/19 1700 Trans: 09/15/19 1715 PJE [id number] Interpreted by: BONI HESTER MD Electronically signed by: Reviewed: Reviewed by Me Departure Impression Primary Impression: CHF exacerbation Qualified Codes: I50.43 - Acute on chronic combined systolic (congestive) and diastolic (congestive) heart failure Additional Impressions: Diabetes mellitus Qualified Codes: E11.9 - Type 2 diabetes mellitus without complications; Z79.4 - ferry terminal supervisor (current) use of insulin Hypertension Qualified Codes: I10 - Essential (primary) hypertension Disposition: 09 ADMITTED INPATIENT Condition: Stable Admissions Decision to Admit Reason: Admit from ER (General) Decision to Admit/Date: Sep 15, 2019 Time/Decision to Admit Time: 17:15 Departure-Patient Inst. Referrals: MYKEL MAHARAJ MD (PCP/Family) Primary Care Physician Copy Copies To 1: MYKEL MAHARAJ MD, AMY ARNP Sep 15, 2019 16:24
[2019-09-15 16:42] LABS: ALBUMIN 3.8 GM/DL (3.2-4.5); BILIRUBIN,TOTAL 0.9 MG/DL (0.1-1.0); CALCIUM 9.1 MG/DL (8.5-10.1); CREATININE SERUM 1.33 MG/DL (0.60-1.30); POTASSIUM 4.3 MMOL/L (3.6-5.0); TOTAL PROTEIN 6.4 GM/DL (6.4-8.2)
[2019-09-15 16:46] LABS: BILIRUBIN,URINE NEGATIVE (NEGATIVE); CLARITY,URINE CLEAR; COLOR,URINE YELLOW; GLUCOSE, URINE (UA) 2+ (NEGATIVE); KETONES,URINE TRACE (NEGATIVE); LEUKOCYTE ESTERASE ,URINE NEGATIVE (NEGATIVE); NITRITE,URINE NEGATIVE (NEGATIVE); PH,URINE 5.5 (5-9); PROTEIN,URINE 2+ (NEGATIVE)
[2019-09-15 17:01] LABS: AMORPHOUS SEDIMENT,UR RARE AMOR URATES /LPF; BACTERIA,URINE TRACE /HPF; HYALINE CASTS, URINE 0-2 /LPF; RBC,URINE 0-2 /HPF; WBC,URINE RARE /HPF
--- NOTE | 2019-09-15 17:15 | Diagnostic Imaging Report ---
EXAMINATION: Chest radiograph, portable AP view. DATE: 09/15/2019 4:59 PM. INDICATION: 58-year-old male, difficulty breathing for 2 days. COMPARISON: February 05, 2017. FINDINGS: Stable overall appearance of the cardiomediastinal silhouette. Lung volumes are somewhat low. There is no identified pneumothorax. There is nonspecific left basilar airspace consolidation with obscuration of visualization of the left hemidiaphragm. There are streaky opacities in the right lung base. IMPRESSION: 1. Nonspecific bibasilar airspace consolidation which may relate to infiltrate, atelectasis and/or small effusions. 2. Low lung volumes. Dictated by: Dictated on workstation # [id number]
[2019-09-15] MEDS ORDERED: ASPIRIN 81 MG CHEW (CHILDREN'S ASA) PO ONE (17:30)
--- NOTE | 2019-09-15 17:44 | Consultation-Cardiology ---
HPI-Cardiology Cardiology Consultation Date of Consultation 09/15/19 Date of Admission Time Seen by Provider: 17:38 Indication: shortness of breath HPI 58 years old gentleman with extensive cardiac history with coronary artery disease and congestive heart failure, stopped taking all his medication about 3 weeks ago due to increased dizziness, reported improvement in the dizziness and just restarted some of his medication but started to have increased weakness and loss of energy in addition to shortness of breath. Denied any chest pain. No palpitation. No syncope or near syncopal episodes. No claudications. Came into the emergency room and was noted to be in congestive heart failure Home Medications & Allergies Allergies: Coded Allergies: No Known Drug Allergies (Unverified , 01/30/10) Home Medication List Reviewed: Yes NNB-Rfczeh-Hngtgx Hx Patient Social History Marital Status: Employed/Student: employed Alcohol Use: Denies Use Recreational Drug Use: No Smoking Status: Light Tobacco Smoker Type Used: Smokeless Tobacco Recent Foreign Travel: No Recent Infectious Disease Expo: No Recent Hopitalizations: Yes (LAST HOSPITALIZATION 1994) Immunizations Up To Date Tetanus Booster (TDap): Less than 5yrs Date of Pneumonia Vaccine: Jul 13, 2012 Date of Influenza Vaccine: Apr 28, 2013 Past Medical History Discussed below Family Medical History Significant Family History: Heart Disease Family History: Congenital heart disease 03 MOTHER Family history: Diabetes mellitus 03 FATHER 03 MOTHER 09 SISTER Review of Systems-General Review of Systems Constitutional: see HPI, dizziness EENTM: see HPI Respiratory: see HPI, dyspnea on exertion, orthopnea; No phlegm; short of breath Cardiovascular: no symptoms reported, see HPI; No chest pain; edema; No Hx of Intervention, No palpitations, No syncope, No vascular heart diseas, No other Gastrointestinal: see HPI Genitourinary: see HPI Musculoskeletal: no symptoms reported, see HPI Skin: no symptoms reported, see HPI Psychiatric/Neurological: No Symptoms Reported, See HPI All Other Systems Reviewed Negative Unless Noted: Yes Reviewed Test Results Reviewed Test Results Lab Laboratory Tests Test 09/15/19 16:07 09/15/19 16:40 Range/Units White Blood Count 9.2 4.3-11.0 10^3/uL Red Blood Count 5.55 4.35-5.85 10^6/uL Hemoglobin 16.7 13.3-17.7 G/DL Hematocrit 48 40-54 % Mean Corpuscular Volume 87 80-99 FL Mean Corpuscular Hemoglobin 30 25-34 PG Mean Corpuscular Hemoglobin Concent 35 32-36 G/DL Red Cell Distribution Width 13.1 10.0-14.5 % Platelet Count 158 130-400 10^3/uL Mean Platelet Volume 13.5 H 7.4-10.4 FL Neutrophils (%) (Auto) 69 42-75 % Lymphocytes (%) (Auto) 21 12-44 % Monocytes (%) (Auto) 9 0-12 % Eosinophils (%) (Auto) 1 0-10 % Basophils (%) (Auto) 0 0-10 % Neutrophils # (Auto) 6.3 1.8-7.8 X 10^3 Lymphocytes # (Auto) 1.9 1.0-4.0 X 10^3 Monocytes # (Auto) 0.8 0.0-1.0 X 10^3 Eosinophils # (Auto) 0.1 0.0-0.3 10^3/uL Basophils # (Auto) 0.0 0.0-0.1 10^3/uL Sodium Level 137 135-145 MMOL/L Potassium Level 4.3 3.6-5.0 MMOL/L Chloride Level 102 98-107 MMOL/L Carbon Dioxide Level 24 21-32 MMOL/L Anion Gap 11 5-14 MMOL/L Blood Urea Nitrogen 16 7-18 MG/DL Creatinine 1.33 H 0.60-1.30 MG/DL Estimat Glomerular Filtration Rate 55 BUN/Creatinine Ratio 12 Glucose Level 391 H 70-105 MG/DL Calcium Level 9.1 8.5-10.1 MG/DL Corrected Calcium 9.3 8.5-10.1 MG/DL Total Bilirubin 0.9 0.1-1.0 MG/DL Aspartate Amino Transf (AST/SGOT) 32 5-34 U/L Alanine Aminotransferase (ALT/SGPT) 55 0-55 U/L Alkaline Phosphatase 104 40-136 U/L Troponin I 0.101 H <0.028 NG/ML B-Type Natriuretic Peptide 1236.4 H <100.0 PG/ML Total Protein 6.4 6.4-8.2 GM/DL Albumin 3.8 3.2-4.5 GM/DL Amylase Level 42 25-125 U/L Urine Color YELLOW Urine Clarity CLEAR Urine pH 5.5 5-9 Urine Specific [place] 1.025 H 1.016-1.022 Urine Protein 2+ H NEGATIVE Urine Glucose (UA) 2+ H NEGATIVE Urine Ketones TRACE H NEGATIVE Urine Nitrite NEGATIVE NEGATIVE Urine Bilirubin NEGATIVE NEGATIVE Urine Urobilinogen 0.2 < = 1.0 MG/DL Urine Leukocyte Esterase NEGATIVE NEGATIVE Urine RBC (Auto) TRACE-I NEGATIVE Urine RBC 0-2 /HPF Urine WBC RARE /HPF Urine Crystals PRESENT H /LPF Urine Amorphous Sediment RARE HEBERT URATES H /LPF Urine Bacteria TRACE /HPF Urine Casts PRESENT /LPF Urine Hyaline Casts 0-2 H /LPF Urine Mucus NEGATIVE /LPF Urine Culture Indicated NO Physical Exam Physical Exam Vital Signs Vital Signs - First Documented 09/15/19 16:03 Temp 36.6 Pulse 93 Resp 30 B/P (MAP) 175/118 (137) Pulse Ox 96 O2 Delivery Nasal Cannula O2 Flow Rate 2.00 Capillary Refill : Less Than 3 Seconds Height, Weight, BMI Height: 5'8.00" Weight: 237lbs. 0.0oz. 107.987036gm; 35.00 BMI Method:Stated General Appearance: No Apparent Distress, WD/WN HEENT: PERRL/EOMI, TMs Normal, Normal ENT Inspection, Pharynx Normal Neck: Full Range of Motion, Normal Inspection, Non Tender, Supple Respiratory: Chest Non Tender, Normal Breath Sounds, Decreased Breath Sounds Cardiovascular: Regular Rate, Rhythm, No Murmur, Normal Peripheral Pulses, Gallop/S3 Gastrointestinal: Normal Bowel Sounds, Non Tender, Soft Extremity: Pedal Edema Neurologic/Psychiatric: Alert, Oriented x3, No Motor/Sensory Deficits, Normal Mood/Affect Skin: Normal Color, Warm/Dry A/P-Cardiology Admission Diagnosis Congestive heart failure, acute on chronic left ventricular systolic dysfunction, ischemic cardiomyopathy Coronary artery disease Non-ST elevation myocardial infarction Hypertension Assessment/Plan Shortness of breath, congestive heart failure, acute on chronic left ventricular systolic dysfunction, ischemic cardiomyopathy, ejection fraction ranging between 30 and 40 percent, restarted on diuretics. I will restart Entresto and Coreg at the lower dose and evaluate tolerance and response Dizziness, probably due to his medication. I will stop amlodipine and hydrochlorothiazide, monitor tolerance and response. Non-ST elevation myocardial infarction, mild elevation in troponin level probably due to small vessel disease, coronary artery disease and congestive heart failure. Continue to monitor trend at this time. Coronary artery disease- history of PTCA and stents to LAD using Promus 3 x 24 mm drug-eluting stent on 07/26/2012. Had abnormal stress test and underwent cardiac catheterization with a staged intervention secondary to his recent head trauma and the need to limit aggressive anticoagulation. Left heart catheterization carried out on February 05, 2017 revealed severe stenosis at the mid circumflex artery and distal right coronary artery. Underwent bare metal stent 3.018 mm to the circumflex artery. Patient was brought back for staged intervention and underwent cardiac catheterization on February 06, 2017 with stenting to the RCA using 3.0 x 15 mm bare-metal stent. Had an episode of chest pain and sent to [facility], underwent cardiac catheterization with Dr. Yanes on November 17, 2017 showed dilated cardiomyopathy with ejection fraction 35 percent, 50 percent in-stent restenosis in the first diagonal and obtuse marginal branch otherwise normal coronaries with normal hemodynamic data. Continue to monitor History of head trauma at work resulted in frontal skull fracture and right occipital bone fracture with mild subdural blood and some arachnoid hemorrhage October 2016, recovered fully. Hypertension, resistant to multiple medications. Renal arterial duplex done February 2018 negative for renal arterial stenosis. Difficult to control. Continue to monitor Hyperlipidemia, I will evaluate lipid profile Diabetes mellitus, poorly controlled due to noncompliance. BPH Osteoarthritis Right pulmonary nodule/mediastinal lymphadenopathy-followed by via [facility] [place] Tobaccoism, chewing tobacco, has stopped chewing tobacco at this time. Encouraged to continue with avoiding tobacco product Noncompliance with medication, stopped taking his medication about 3 weeks ago due to persistent dizziness. Reporting improvement of dizziness, worsening shortness of breath and blood sugar. MICHELLE CANSECO MD Sep 15, 2019 17:43
[2019-09-15] MEDS ORDERED: CATHETER FLUSH 10 ML SYR IV PRN (18:15)
--- NOTE | 2019-09-15 20:29 | NUR ---
Mason Moura] admitted to room 412-1, with an admitting diagnosis of CHF eacerbation , on 09/15/19 from [place] via wheel chair, accompanied by staff .MASON ROCHA introduced to surroundings, call light, bed controls, phone, TV, temperature control, lights, meal times, smoking policy, visitor policy, side rail policy, bathrooms and showers. Patient Rights given to patient in the handbook.MASON ROCHA verbalizes understanding that [facility] is not responsible for the loss or damage to any personal effects or valuables that are kept in the patients posession during their hospitalization. Patient and/or family were informed about the Rapid Response Team and its purpose.
[2019-09-15] MEDS ORDERED: ACETAMINOPHEN 325 MG TABLET PO PRN (20:30)
[2019-09-15] MEDS ORDERED: ONDANSETRON 4 MG/2 ML (SDV) Z0FRAN IV PRN (20:30)
[2019-09-15 20:48] VITALS: BP 166/95
[2019-09-15] MEDS: CARVEDILOL 12.5 MG (COREG) TABLET PO SCH (21:07)
[2019-09-15] MEDS: ENOXAPARIN 100 MG/1 ML (LOVENOX) SYR SC SCH (21:08)
[2019-09-15] MEDS: SACUBITRIL/VALSARTAN 24/26 MG (ENTRESTO) TABLET PO SCH (21:08)
[2019-09-15] MEDS: NS IV 1000 ML 1,000 ML IV SCH (21:08)
[2019-09-15] MEDS: inSUlin ASPART (NovoLOG) 1 UNIT/0.01 ML (CHARGE PER UNIT) SC SCH (21:08)
[2019-09-15] MEDS ORDERED: CATHETER FLUSH 10 ML SYR IV SCH (22:00)
[2019-09-16] VITALS (7 sets, daily range): BP systolic 129–165; BP diastolic 80–93
[2019-09-16] MEDS ORDERED: RT-ALBUTEROL SULF 2.5 MG/3 ML PRE-MIX VIAL INH PRN (01:15)
[2019-09-16 05:35] LABS: HEMOGLOBIN 14.8 G/DL (13.3-17.7); MEAN PLATELET VOLUME 13.7 FL (7.4-10.4); RED CELL DISTRIBUTION WIDTH 13.2 % (10.0-14.5); WHITE BLOOD COUNT 6.4 10^3/uL (4.3-11.0)
[2019-09-16 05:58] LABS: ALKALINE PHOSPHATASE 80 U/L (40-136); BILIRUBIN,TOTAL 0.5 MG/DL (0.1-1.0); BUN/CREATININE RATIO 12; CALCIUM 8.3 MG/DL (8.5-10.1); CARBON DIOXIDE 22 MMOL/L (21-32); CHLORIDE 106 MMOL/L (98-107); GFR ESTIMATED > 60; GLUCOSE 360 MG/DL (70-105); POTASSIUM 3.8 MMOL/L (3.6-5.0); SODIUM 138 MMOL/L (135-145)
[2019-09-16 05:59] LABS: ALANINE AMINOTRANSFERASE 38 U/L (0-55); TOTAL PROTEIN 5.2 GM/DL (6.4-8.2)
[2019-09-16] MEDS: ENOXAPARIN 100 MG/1 ML (LOVENOX) SYR SC SCH ×2 (06:09→16:15)
[2019-09-16] MEDS: inSUlin ASPART (NovoLOG) 1 UNIT/0.01 ML (CHARGE PER UNIT) SC SCH ×4 (06:10→20:17)
[2019-09-16] MEDS: FUROSEMIDE 40 MG/4 ML INJ (LASIX) IVP SCH ×2 (06:10→16:14)
[2019-09-16] MEDS: NS IV 1000 ML 1,000 ML IV SCH (06:14)
[2019-09-16] MEDS: RT-ALBUTEROL SULF 2.5 MG/3 ML PRE-MIX VIAL INH SCH ×4 (07:30→18:54)
--- NOTE | 2019-09-16 08:00 | History & Physical ---
History of Present Illness History of Present Illness Reason for visit/HPI 58 yo M admitted for acute on chronic congestive heart failure. Patient reports 3 weeks ago he stopped his medications because he was having some dizziness which improved his dizziness. He has started them again one at a time but come to the ER due to weakness and trouble breathing. He is requiring 2L oxygen as his BNP was >1000. He has history of diabetes, congestive heart failure with EF 30-40%. He is suppose to be on beta domenic, lasix and entresto. Dr. Peraza was consulted on admission. Denies any recent illness or fever. Patient reports he understands he likely had a hand in this acute exacerbation but did determine it was his medication that was making him dizzy. 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 Date of Admission Sep 15, 2019 at 17:35 Date Seen by a Provider: Sep 16, 2019 Time Seen by a Provider: 07:59 I consulted on this patient on 09/16/19 07:54 Attending Physician Jean Sweeney MD Admitting Physician Shaniqua Carrillo MD Consult Allergies and Home Medications Allergies Coded Allergies: No Known Drug Allergies (Unverified , 01/30/10) Home Medications Amitriptyline Hcl 10 Mg Tab, 10 MG PO HS, (Reported) Aspirin 81 Mg Chew, 81 MG PO DAILY, (Reported) Atorvastatin Calcium 10 Mg Tablet, 10 MG PO HS, (Reported) Clopidogrel Bisulfate 75 Mg Tablet, 75 MG PO DAILY Prescribed by: MICHELLE PERAZA on 02/07/17 1214 Furosemide 40 Mg Tablet, 40 MG PO DAILY, (Reported) Insulin Glargine,Hum.rec.anlog 100 Unit/1 Ml Insuln.pen, 20 UNIT SQ DAILY, (Reported) Insulin Glargine,Hum.rec.anlog 100 Unit/1 Ml Insuln.pen, 40 UNIT SQ HS, (Reported) Metoprolol Succinate 50 Mg Tab.er.24h, 50 MG PO DAILY, (Reported) Ranitidine Hcl 150 Mg Tablet, 150 MG PO BID, (Reported) Sacubitril/Valsartan 1 Each Tablet, 1 TAB PO BID, (Reported) Tamsulosin HCl 0.4 Mg Cap.er.24h, 0.4 MG PO DAILY, (Reported) Patient Home Medication List Home Medication List Reviewed: Yes Past Bdaaixl-Zhaikp-Wsvljs Hx Patient Social History Marrital Status: Employed/Student: employed Alcohol Use: Denies Use Recreational Drug Use: No Smoking Status: Light Tobacco Smoker Type Used: Smokeless Tobacco Recent Foreign Travel: No Contact w/other who traveled: No Recent Hopitalizations: Yes (LAST HOSPITALIZATION 1994) Recent Infectious Disease Expo: No Immunizations Up To Date Tetanus Booster (TDap): Less than 5yrs Date of Pneumonia Vaccine: Jul 13, 2012 Date of Influenza Vaccine: Apr 28, 2019 Surgeries Yes (herniated disk) Respiratory No Cardiovascular Yes (stent placed) Neurological No Reproductive System Hx Reproductive Disorders: No Sexually Transmitted Disease: No Genitourinary Benign Prostatic Hyperpl Gastrointestinal No Musculoskeletal No Endocrine History of Endocrine Disorders: No Endocrine Disorders: Diabetes, Non-Insulin dep HEENT Loss of Vision: Denies Cancer No Psychosocial History of Psychiatric Problem: No Integumentary History of Skin or Integumenta: No Blood Transfusions History of Blood Disorders: No Adverse Reaction to a Blood Tr: No Family Medical History Significant Family History: Heart Disease Family Hx: Congenital heart disease 03 MOTHER Family history: Diabetes mellitus 03 FATHER 03 MOTHER 09 SISTER Review of Systems Review of Systems General: No Chills, No Night Sweats HEENT: No Head Aches, No Visual Changes Pulmonary: Dyspnea Cardiovascular: Orthopnea; No: Chest Pain, Palpitations Gastrointestinal: No: Nausea Genitourinary: No Dysuria Musculoskeletal: No: neck pain Neurological: Weakness; No: Confusion All Other Systems Reviewed All Other Systems Reviewed: Yes Physical Exam Vital Signs Vital Signs - First Documented 09/15/19 16:03 Temp 36.6 Pulse 93 Resp 30 B/P (MAP) 175/118 (137) Pulse Ox 96 O2 Delivery Nasal Cannula O2 Flow Rate 2.00 Capillary Refill : Less Than 3 SecondsLess Than 3 Seconds Height, Weight, BMI Height: 5'8.00" Weight: 237lbs. 0.0oz. [id number]; 32.85 BMI Method:Stated General Appearance: WD/WN, Mild Distress HEENT: PERRL/EOMI Neck: Non Tender, Supple Respiratory: Chest Non Tender; No Normal Breath Sounds; No Accessory Muscle Use, Decreased Breath Sounds (throughout) Cardiovascular: Regular Rate, Rhythm; No Gallop/S4 Gastrointestinal: Normal Bowel Sounds, Non Tender, Soft Rectal: Deferred Back: Normal Inspection, No CVA Tenderness Extremity: Normal Range of Motion, Non Tender, Pedal Edema (1+) Neurologic/Psychiatric: Alert, Oriented x3 Skin: Warm/Dry Assessment/Plan Assessment/Plan Admission Dx acute on chronic congestive heart failure. dyspnea due to fluid overload (CHF) Diabetes Mellitus II CAD Admission Status: Observation Assessment and Plan Admitted observation for CHF exacerbation- will diurese and see how his oxygen requirements trend. Blood sugar is uncontrolled- will restart his insulin and try to get him under better control prior to discharge. -Issue though as with most patients their diet is different at home compared to hospital intake. trending troponins - slight decrease on recheck- treatment dose of lovenox started on admission- likely will stop today. -Await cardiology recommendations. -stopping IVFs. Problems: (1) Acute on chronic systolic (congestive) heart failure Assessment & Plan: diurese (2) DMII (diabetes mellitus, type 2) Qualifiers: Qualified Codes: E11.65 - Type 2 diabetes mellitus with hyperglycemia; Z79.4 - terminal operator (current) use of insulin (3) HTN (hypertension) Qualifiers: Qualified Codes: I10 - Essential (primary) hypertension (4) Dyspnea Qualifiers: Qualified Codes: R06.03 - Acute respiratory distress Assessment & Plan: due to fluid overload- CHF exacerbation. Clinical Quality Measures DVT/VTE Risk/Contraindication: Risk Factor Score Per Nursin RFS Level Per Nursing on Admit: 4+=Very High JEAN SWEENEY MD Sep 16, 2019 08:00
[2019-09-16] MEDS ORDERED: FUROSEMIDE 40 MG/4 ML INJ (LASIX) IVP ONE (08:45)
[2019-09-16] MEDS: CARVEDILOL 12.5 MG (COREG) TABLET PO SCH ×2 (08:48→20:17)
[2019-09-16] MEDS: ASPIRIN E.C. 81 MG (ECOTRIN) TAB PO SCH (08:48)
[2019-09-16] MEDS: SACUBITRIL/VALSARTAN 24/26 MG (ENTRESTO) TABLET PO SCH ×2 (08:48→20:17)
--- NOTE | 2019-09-16 16:00 | Progress Note - Cardiology ---
Cardiology SOAP Progress Note Subjective: States is less short of breath than at time of admission No cp or palp or syncope Some gen malaise No focal weakness No n/v/d Objective: I&O/Vital Signs 09/16/19 09/16/19 09/16/19 09/16/19 04:00 07:00 07:30 08:00 Temp 37.4 Pulse 88 77 Resp 22 B/P (MAP) 147/83 (104) Pulse Ox 96 93 94 O2 Delivery Nasal Cannula Nasal Cannula Nasal Cannula O2 Flow Rate 2.00 2.00 3.00 09/16/19 09/16/19 09/16/19 09/16/19 08:00 10:35 12:00 12:29 Temp 37.4 36.2 Pulse 86 73 74 Resp 18 20 B/P (MAP) 148/90 (109) 145/80 (101) Pulse Ox 94 94 95 O2 Delivery Nasal Cannula Nasal Cannula Nasal Cannula O2 Flow Rate 2.00 3.00 2.00 09/16/19 15:10 Pulse Ox 96 O2 Delivery Nasal Cannula O2 Flow Rate 3.00 09/16/19 00:00 Intake Total 1600 ml Balance 1600 ml Weight (Pounds): 237 Weight (Ounces): 0.0 Weight (Calculated Kilograms): 107.825604 Constitutional: AAO x 3, well-developed, well-nourished Respiratory: No accessory muscle use; other (good bilat air entry) Cardiovascular: regular rate-rhythm, S1 and S2, systolic murmur (soft TRISTEN at card base) Gastrointestional: No tender; soft; No guarding, No rebound; audible bowel sounds Extremities: No clubbing, No cyanosis, No significant edema Neurologic/Psychiatric: oriented x 3, other (moves all limbs equally) Skin: No rash on exposed areas, No ulcerations on exposed areas Results/Procedures: Labs Laboratory Tests 09/15/19 16:07: White Blood Count 9.2, Red Blood Count 5.55, Hemoglobin 16.7, Hematocrit 48, [place] n Corpuscular Volume 87, Mean Corpuscular Hemoglobin 30, Mean Corpuscular Hemoglobin Concent 35, Red Cell Distribution Width 13.1, Platelet Count 158, Mean Platelet Volume 13.5H, Neutrophils (%) (Auto) 69, Lymphocytes (%) (Auto) 21, Monocytes (%) (Auto) 9, Eosinophils (%) (Auto) 1, Basophils (%) (Auto) 0, Neutrophils # (Auto) 6.3, Lymphocytes # (Auto) 1.9, Monocytes # (Auto) 0.8, Eosinophils # (Auto) 0.1, Basophils # (Auto) 0.0, Sodium Level 137, Potassium Level 4.3, Chloride Level 102, Carbon Dioxide Level 24, Anion Gap 11, Blood Urea Nitrogen 16, Creatinine 1.33H, Estimat Glomerular Filtration Rate 55, BUN/Creatinine Ratio 12, Glucose Level 391H, Calcium Level 9.1, Corrected Calcium 9.3, Total Bilirubin 0.9, Aspartate Amino Transf (AST/SGOT) 32, Alanine Aminotransferase (ALT/SGPT) 55, Alkaline Phosphatase 104, Troponin I 0.101H, B- Type Natriuretic Peptide 1236.4H, Total Protein 6.4, Albumin 3.8, Amylase Level 42, TSH [place] Testing 1.85 09/15/19 16:40: Urine Color YELLOW, Urine Clarity CLEAR, Urine pH 5.5, Urine Specific [place] 1.025H, Urine Protein 2+H, Urine Glucose (UA) 2+H, Urine Ketones TRACEH, Urine Nitrite NEGATIVE, Urine Bilirubin NEGATIVE, Urine Urobilinogen 0.2, Urine Leukocyte Esterase NEGATIVE, Urine RBC (Auto) TRACE-I, Urine RBC 0-2, Urine WBC RARE, Urine Crystals PRESENTH, Urine Amorphous Sediment RARE HEBERT URATESH, Urine Bacteria TRACE, Urine Casts PRESENT, Urine Hyaline Casts 0-2H, Urine Mucus NEGATIVE, Urine Culture Indicated NO 09/15/19 20:43: Glucometer 286H 09/16/19 05:16: Glucometer 338H 09/16/19 05:17: White Blood Count 6.4, Red Blood Count 4.92, Hemoglobin 14.8, Hematocrit 44, Mean Corpuscular Volume 88, Mean Corpuscular Hemoglobin 30, Mean Corpuscular Hemoglobin Concent 34, Red Cell Distribution Width 13.2, Platelet Count 130, Mean Platelet Volume 13.7H, Sodium Level 138, Potassium Level 3.8, Chloride Level 106, Carbon Dioxide Level 22, Anion Gap 10, Blood Urea Nitrogen 14, Creatinine 1.20, Estimat Glomerular Filtration Rate > 60, BUN/Creatinine Ratio 12, Glucose Level 360H, Calcium Level 8.3L, Corrected Calcium 9.1, Total Bilirubin 0.5, Aspartate Amino Transf (AST/SGOT) 19, Alanine Aminotransferase (ALT/SGPT) 38, Alkaline Phosphatase 80, Troponin I 0.090H, Total Protein 5.2L, Albumin 3.0L 09/16/19 10:55: Glucometer 234H 09/16/19 15:33: Glucometer 204H Laboratory Tests 09/15/19 16:07 09/16/19 05:17 Laboratory Tests 09/15/19 16:07 09/16/19 05:17 A/P: Assessment: Ac systolic CHF due to ischemic cardiomyopathy, ejection fraction ranging between 30 and 40 percent Dizziness, probably due to his medication, amlodipine and HCTZ stopped during this hosp Type-2 VT, likely due to CHF Coronary artery disease- history of PTCA and stents to LAD using Promus 3 x 24 mm drug-eluting stent on 07/26/2012. Had abnormal stress test and underwent cardiac catheterization with a staged intervention secondary to his recent head trauma and the need to limit aggressive anticoagulation. Left heart catheterization carried out on February 05, 2017 revealed severe stenosis at the mid circumflex artery and distal right coronary artery. Underwent bare metal stent 3.018 mm to the circumflex artery. Patient was brought back for staged intervention and underwent cardiac catheterization on February 06, 2017 with sten ting to the RCA using 3.0 x 15 mm bare-metal stent. Had an episode of chest pain and sent to [facility], underwent cardiac catheterization with Dr. Yanes on November 17, 2017 showed dilated cardiomyopathy with ejection fraction 35 percent, 50 percent in-stent restenosis in the first diagonal and obtuse marginal branch otherwise normal coronaries with normal hemodynamic data History of head trauma at work that resulted in frontal skull fracture and right occipital bone fracture with mild subdural blood and some arachnoid hemorrhage October 2016, recovered fully. Hypertension, resistant to multiple medications. Renal arterial duplex done February 2018 negative for renal arterial stenosis Hyperlipidemia, by history Diabetes mellitus II, poorly controlled, managed by the Med Svce BPH Osteoarthritis Right pulmonary nodule/mediastinal lymphadenopathy-followed by via [facility] H/o chewing tobacco, now quit H/o intermittent noncompliance Plan: * I interviewed and examined him and reviewed his records * Continue current regimen * Monitor labs * Advised compliance with meds and avoidance of tobacco use PASCUAL PONCE MD FACP FAC CCDS Sep 16, 2019 16:00
[2019-09-17 00:05] VITALS: BP 132/83
[2019-09-17 04:29] VITALS: BP 146/91
[2019-09-17] MEDS: FUROSEMIDE 40 MG/4 ML INJ (LASIX) IVP SCH (05:51)
[2019-09-17] MEDS: inSUlin ASPART (NovoLOG) 1 UNIT/0.01 ML (CHARGE PER UNIT) SC SCH ×2 (05:51→11:41)
[2019-09-17] MEDS: RT-ALBUTEROL SULF 2.5 MG/3 ML PRE-MIX VIAL INH SCH ×2 (06:17→10:28)
[2019-09-17 08:00] VITALS: BP 125/75
[2019-09-17] MEDS: ASPIRIN E.C. 81 MG (ECOTRIN) TAB PO SCH (08:47)
[2019-09-17] MEDS: CARVEDILOL 12.5 MG (COREG) TABLET PO SCH (08:47)
[2019-09-17] MEDS: SACUBITRIL/VALSARTAN 24/26 MG (ENTRESTO) TABLET PO SCH (08:47)
--- NOTE | 2019-09-17 08:50 | Progress Note - Cardiology ---
Cardiology SOAP Progress Note Subjective: No cp or palp or syncope Shortness of breath resolved No n/v/d Insists on going home Objective: I&O/Vital Signs 09/17/19 09/17/19 09/17/19 09/17/19 00:05 01:00 04:29 06:18 Temp 37.2 37.6 Pulse 72 85 82 Resp 18 18 B/P (MAP) 132/83 (99) 146/91 (109) Pulse Ox 95 97 93 O2 Delivery Nasal Cannula Nasal Cannula Nasal Cannula O2 Flow Rate 2.00 2.00 2.00 09/17/19 07:00 Pulse 83 09/17/19 00:00 Intake Total 2510 ml Output Total 3800 ml Balance -1290 ml Weight (Pounds): 237 Weight (Ounces): 0.0 Weight (Calculated Kilograms): 107.143222 Constitutional: AAO x 3, well-developed, well-nourished Respiratory: No accessory muscle use; other (good bilat air entry) Cardiovascular: regular rate-rhythm, S1 and S2, systolic murmur (soft TRISTEN at card base) Gastrointestional: No tender; soft; No guarding, No rebound; audible bowel sounds Extremities: No clubbing, No cyanosis, No significant edema Neurologic/Psychiatric: oriented x 3, other (moves all limbs equally) Skin: No rash on exposed areas, No ulcerations on exposed areas Results/Procedures: Labs Laboratory Tests 09/16/19 10:55: Glucometer 234H 09/16/19 15:33: Glucometer 204H 09/16/19 20:10: Glucometer 155H 09/17/19 05:48: Glucometer 139H A/P: Assessment: Ac systolic CHF due to ischemic cardiomyopathy, ejection fraction ranging between 30 and 40 percent Dizziness, probably due to his medication, amlodipine and HCTZ stopped during this hosp Type-2 [place], likely due to CHF Coronary artery disease- history of PTCA and stents to LAD using Promus 3 x 24 mm drug-eluting stent on 07/26/2012. Had abnormal stress test and underwent cardiac catheterization with a staged intervention secondary to his recent head trauma and the need to limit aggressive anticoagulation. Left heart catheterization carried out on February 05, 2017 revealed severe stenosis at the m id circumflex artery and distal right coronary artery. Underwent bare metal stent 3.018 mm to the circumflex artery. Patient was brought back for staged intervention and underwent cardiac catheterization on February 06, 2017 with sten ting to the RCA using 3.0 x 15 mm bare-metal stent. Had an episode of chest pain and sent to [facility], underwent cardiac catheterization with Dr. Yanes on November 17, 2017 showed dilated cardiomyopathy with ejection fraction 35 percent, 50 percent in-stent restenosis in the first diagonal and obtuse marginal branch otherwise normal coronaries with normal hemodynamic data History of head trauma at work that resulted in frontal skull fracture and right occipital bone fracture with mild subdural blood and some arachnoid hemorrhage October 2016, recovered fully. Hypertension, resistant to multiple medications. Renal arterial duplex done February 2018 negative for renal arterial stenosis Hyperlipidemia, by history Diabetes mellitus II, poorly controlled, managed by the Med Svce BPH Osteoarthritis Right pulmonary nodule/mediastinal lymphadenopathy-followed by [facility] Chews tobacco H/o intermittent noncompliance Plan: * Change furosemide to oral and add low-dose K (K dropping after furosemide added) * Monitor labs * Advised compliance with meds and avoidance of tobacco use * I advised him to stay another day for EF re-eval and be d/c'd by Dr Peraza tomorrow. He refuses. Wants to go home today. States will f/u with Dr Peraza within the week * I advised him to return to ER for any recurrence of symptoms or new symptoms PASCUAL PONCE MD FACP FAC CCDS Sep 17, 2019 08:50
[2019-09-17] MEDS ORDERED: KCL 10 MEQ TAB (MICRO K) PO SCH (09:00)
[2019-09-17] MEDS ORDERED: ENOXAPARIN 40 MG/0.4 ML (LOVENOX) SYR SC SCH (09:00)
[2019-09-17] MEDS ORDERED: FUROSEMIDE 40 MG (LASIX) TAB PO SCH (09:00)
--- NOTE | 2019-09-17 11:25 | Discharge Summary ---
Discharge Summary Hospital Course Was the Problem List Reviewed?: Yes Problems/Dx: (1) Acute on chronic systolic (congestive) heart failure Status: Acute (2) DMII (diabetes mellitus, type 2) Status: Chronic Qualifiers: Qualified Codes: E11.65 - Type 2 diabetes mellitus with hyperglycemia; Z79.4 - rat exterminator (current) use of insulin (3) HTN (hypertension) Status: Chronic Qualifiers: Qualified Codes: I10 - Essential (primary) hypertension (4) Dyspnea Status: Resolved Qualifiers: Qualified Codes: R06.03 - Acute respiratory distress (5) Type [address] elevation Status: Resolved Hospital Course Date of Admission: Sep 16, 2019 at 12:32 Admission Diagnosis : acute on chronic systolic CHF HTN DMII dyspnea due to CHF exacerbation Family Physician/Provider: Shaniqua Carrillo MD Date of Discharge: 09/17/19 Discharge Diagnosis: acute on chronic systolic CHF HTN DMII dyspnea due to CHF exacerbation Hospital Course: 58 yo M admitted for acute on chronic congestive heart failure. Patient reports 3 weeks ago he stopped his medications because he was having some dizziness which improved his dizziness. He has started them again one at a time but come to the ER due to weakness and trouble breathing. He is requiring 2L oxygen as his BNP was >1000. He has history of diabetes, congestive heart failure with EF 30-40%. He is suppose to be on beta domenic, lasix and entresto. Dr. Peraza was consulted on admission. Denies any recent illness or fever. Patient reports he understands he likely had a hand in this acute exacerbation but did determine it was his medication that was making him dizzy. 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 Type II ID- he was placed on treatment dosage of lovenox. With diuresis he no longer required supplemental oxygen. Cardiology wanted him to stay another night to reassess his heart failure- patient was adament about being discharged to home today so he could go to work tomorrow. He will follow up with PCP and cardiology in 1-2 weeks. Return to ER if symptoms reoccur. Resume your home medications - Labs and Pending Lab Test: Laboratory Tests 09/16/19 15:33: Glucometer 204H 09/16/19 20:10: Glucometer 155H 09/17/19 05:48: Glucometer 139H 09/17/19 11:02: Glucometer 317H Home Meds Active Clopidogrel (Clopidogrel Bisulfate) 75 Mg Tablet 75 Mg PO DAILY Reported [place] Kwikpen U-100 (Insulin Glargine,Hum.rec.anlog) 100 Unit/1 Ml Insuln.pen 40 Unit SQ HS Basaglar Kwikpen U-100 (Insulin Glargine,Hum.rec.anlog) 100 Unit/1 Ml Insuln.pen 20 Unit SQ DAILY Tamsulosin HCl 0.4 Mg Cap.er.24h 0.4 Mg PO DAILY Metoprolol Succinate 50 Mg Tab.er.24h 50 Mg PO DAILY Atorvastatin Calcium 10 Mg Tablet 10 Mg PO HS Furosemide 40 Mg Tablet 40 Mg PO DAILY Entresto 24 mg-26 mg Tablet (Sacubitril/Valsartan) 1 Each Tablet 1 Tab PO BID Heartburn Relief (Ranitidine Hcl) 150 Mg Tablet 150 Mg PO BID Aspirin 81 Mg Chew Tab (Aspirin) 81 Mg Chew 81 Mg PO DAILY Elavil (Amitriptyline HCl) 10 Mg Tab 10 Mg PO HS Assessment/Pt Instructions improvement in his CHF shortness of breath resolved. - Call Dr. Peraza office for follow up visit in 1-2 week. -Call Dr. Carrillo office for follow up visit. -controlling blood sugar will benefit his heart Discharge Planning: <30 minutes discharge planning Discharge Instructions Discharge Diet: Cardiac Diet Activity as Tolerated: Yes Discharge Physical Examination Vital Signs Vital Signs Date Time Temp Pulse Resp B/P (MAP) Pulse Ox O2 Delivery O2 Flow Rate FiO2 09/17/19 10:29 93 Room Air 09/17/19 08:00 36.9 70 18 125/75 (92) 2.00 General Appearance: No Apparent Distress HEENT: PERRL/EOMI Respiratory: Chest Non Tender, Lungs Clear, Normal Breath Sounds, No Accessory Muscle Use, No Respiratory Distress Cardiovascular: Regular Rate, Rhythm Gastrointestinal: Non Tender, Soft Extremity: Non Tender Skin: Normal Color, Warm/Dry Neurologic/Psychiatric: Alert, Oriented x3, No Motor/Sensory Deficits, Normal Mood/Affect Allergies: Coded Allergies: No Known Drug Allergies (Unverified , 01/30/10) Discharge Summary Date of Admission Sep 16, 2019 at 12:32 Date of Discharge September 17, 2019 Consults/Procedures Consulations Dr. Peraza Discharge Diagnosis acute on chronic systolic CHF HTN DMII dyspnea due to CHF exacerbation- resolved (1) Acute on chronic systolic (congestive) heart failure Status: Acute Assessment & Plan: diurese (2) DMII (diabetes mellitus, type 2) Status: Chronic Qualifiers: Qualified Codes: E11.65 - Type 2 diabetes mellitus with hyperglycemia; Z79.4 - rat exterminator (current) use of insulin (3) HTN (hypertension) Status: Chronic Qualifiers: Qualified Codes: I10 - Essential (primary) hypertension (4) Dyspnea Status: Resolved Assessment & Plan: due to fluid overload- CHF exacerbation. Qualifiers: Qualified Codes: R06.03 - Acute respiratory distress Clinical Quality Measures DVT/VTE Risk/Contraindication: Risk Factor Score Per Nursin RFS Level Per Nursing on Admit: 4+=Very High KAITLIN SWEENEY MD Sep 17, 2019 11:22
[2019-09-17 12:37] VITALS: BP 125/75
== END 2019-09-17 12:41 | disposition home or self-care (01) | DRG 282 ==
LOC: EDUNIT# 15:59 → ER 16:00 → 4TH 17:35 → OBSVTOIN 09-16 12:32
PROVIDERS: ADMIT Family Medicine; ATTEND Family Medicine
DX: I11.0 Hypertensive heart disease with heart failure (principal); I50.23 Acute on chronic systolic (congestive) heart failure; I21.A1 Myocardial infarction type 2; I25.5 Ischemic cardiomyopathy; I25.10 Atherosclerotic heart disease of native coronary artery without angina pectoris; E11.65 Type 2 diabetes mellitus with hyperglycemia; F17.220 Nicotine dependence, chewing tobacco, uncomplicated; N40.0 Benign prostatic hyperplasia without lower urinary tract symptoms; E78.5 Hyperlipidemia, unspecified; M19.91 Primary osteoarthritis, unspecified site; R91.1 Solitary pulmonary nodule; R59.0 Localized enlarged lymph nodes; Z91.14 Patient's other noncompliance with medication regimen; Z79.4 Long term (current) use of insulin; Z95.5 Presence of coronary angioplasty implant and graft
CPT/HCPCS: 36415; 71045; 80053; 81000; 82150; 82962; 83880; 84443; 84484; 85025; 85027; 93005; 94640; 94760; 96361; 96374; 96375; G0378

== ENCOUNTER → 2019-11-16 | Outpatient (CLI) | payer OTHER ==
--- NOTE | 2019-11-16 12:38 | Diagnostic Imaging Report ---
INDICATION: WEIGHT LOSS, DYSPNEA COMPARISON: 09/15/2019 FINDINGS: Frontal and lateral views of the chest demonstrate normal heart size and pulmonary vascularity. The lungs are clear. There are no signs of infiltrate, pleural effusions or pneumothoraces. The visualized osseous structures show no acute abnormalities. IMPRESSION: 1. No acute process. No signs of infiltrates, effusions or pneumothoraces. Dictated by: Dictated on workstation # [id number]
== END ==
LOC: RAD 12:02
PROVIDERS: ATTEND Nurse Practitioner Family
DX: R06.00 Dyspnea, unspecified (principal); R63.4 Abnormal weight loss
CPT/HCPCS: 71046

== ENCOUNTER → 2019-11-29 | Outpatient (CLI) | payer OTHER ==
[~2019-11-29] MED LIST changes: +GADOBUTROL 10 MMOL/10 ML (GADAVIST) VIAL IV ONE
--- NOTE | 2019-11-29 11:40 | Diagnostic Imaging Report ---
CLINICAL INDICATION: Patient has been having headaches and dizziness. Patient has history of traumatic brain injury. EXAM: MRI of the brain performed without and with 8 cc of Gadavist IV contrast. Sequences include axial DWI, ADC map, axial gradient echo, axial T2, axial FLAIR, axial T1, axial T1 post IV contrast, coronal T1 fat-sat post IV contrast, and sagittal T1 post IV contrast. COMPARISON: Head CT without contrast dated 01/26/2012. FINDINGS: There is a 0.7 cm x 1.4 cm (AP x Trans) amorphous area of elevated DWI signal located in the posterior left frontal lobe kaye radiata/centrum semiovale region which has associated low to normalized ADC map signal. There is a small amount of increased T2 signal and amorphous patchy enhancement also seen in the area as well. There are multiple focal, patchy, and mildly confluent areas of high T2 signal involving both cerebral hemispheres, periventricular regions, and solomon. The brain parenchymal volume appears appropriate for patient's age. There is no hydrocephalus, brain herniation or midline shift. The basal cisterns are unremarkable. The [place] vascular structures show no gross abnormality as visualized. The pituitary gland, sella, and suprasellar regions are unremarkable as visualized. The extracranial soft tissue, skull, and orbits are unremarkable. There is mild mucosal thickening involving the ethmoid sinus and right maxillary sinus. The mastoid air cells are clear. IMPRESSION: 1. There is a small area of abnormal signal and enhancement involving the posterior left frontal lobe white matter region which is suspected to represent a subacute infarct measuring 1.4 cm in greatest dimension. A followup MRI of the brain in 3 months is suggested to evaluate for resolution and exclude a neoplasm or other etiology. 2. Chronic small vessel ischemic disease. 3. Mild paranasal sinus disease. 4. The results of this report were discussed with Suellen Bains APRN, via the telephone on 11/28/2019 at 1115 hours. 5. The report was faxed to the office of Suellen Bains APRN, by [email or web address] AM. Dictated by: Dictated on workstation # [id number]
== END ==
LOC: RAD 09:42
PROVIDERS: ATTEND Nurse Practitioner Family
DX: I67.82 Cerebral ischemia (principal); J32.9 Chronic sinusitis, unspecified; Z87.820 Personal history of traumatic brain injury
CPT/HCPCS: 70553

== ENCOUNTER → 2019-12-19 | Outpatient (CLI) | payer OTHER ==
[~2019-12-19] MED LIST changes: -GADOBUTROL 10 MMOL/10 ML (GADAVIST) VIAL IV ONE
--- NOTE | 2019-12-19 09:51 | Diagnostic Imaging Report ---
PROCEDURE: US carotid duplex, bilateral. TECHNIQUE: Multiple Real-time grayscale images were obtained over the carotid arteries in various projections bilaterally. Additional spectral analysis and color Doppler duplex images were also obtained. INDICATION: History of diabetes and hypertension. Dizziness and headache. Recent stroke. CORRELATION STUDY: None. FINDINGS: There is prominent atherosclerotic calcified plaque throughout the common, internal, and external carotid arteries. On the right, there is mild plaque-like formation originating within the mid aspect of the common carotid artery extending through the carotid bulb and bifurcation into the proximal aspect of the internal carotid artery. There is only mild increased velocity in the internal carotid artery with an ICA/CCA ratio of 1.7. This finding would be consistent with a less than 50% narrowing. The external carotid artery is patent. On the left, mild plaque starts at the mid aspect of the common carotid artery extending into the carotid bulb. There is no significantly elevated velocity to suggest a focal area of stenosis with the peak systolic ICA/CCA ratio measuring 1.2. The external carotid artery is patent. The vertebral arteries demonstrate antegrade direction of flow. IMPRESSION: Mild to moderate plaque throughout a large portion of the bilateral common carotid arteries extending into the carotid bifurcation and origin of the internal carotid arteries. This is slightly more pronounced on the right where there is less than 50% stenosis currently suggested. Periodic followup survey assessment would be recommended. MEASUREMENTS: Parameters based on the consensus panel Negrete-Scale and Doppler ultrasound criteria published April 2003, Radiology, Volume 229. DOPPLER (peak systolic velocity M/S Right Left CCA 0.66 0.77 ICA Proximal 1.12 0.94 ICA Mid 1.13 0.86 ICA Distal 0.75 0.62 RATIO 1.7 1.2 ECA 1.08 0.98 VERT 0.47 0.55 Dictated by: Dictated on workstation # [id number]
== END ==
LOC: CARD 07:38
PROVIDERS: ATTEND Nurse Practitioner Family
DX: I34.0 Nonrheumatic mitral (valve) insufficiency (principal); I51.7 Cardiomegaly; I63.9 Cerebral infarction, unspecified; I10 Essential (primary) hypertension; E11.9 Type 2 diabetes mellitus without complications; I65.23 Occlusion and stenosis of bilateral carotid arteries
CPT/HCPCS: 93306; 93880

== ENCOUNTER → 2020-01-31 | Outpatient (CLI) | payer OTHER ==
[~2020-01-31] MED LIST changes: +REGADENOSON 0.4 MG/5 ML SYR (LEXISCAN) IV ONE
[2020-01-31] MEDS: CATHETER FLUSH 10 ML SYR IV PRN ×2 (07:48→08:04)
[2020-01-31 09:33] VITALS: BP 152/99
--- NOTE | 2020-01-31 13:55 | Cardiology Stress Test Report ---
Stress Test Report Date of Procedure/Referring: Date of Procedure: Jan 31, 2020 PCP Michelle Peraza MD Admitting Physician Shaniqua Carrillo MD Indications: Congestive heart failure Baseline Blood Pressure: Blood Pressure Systolic: 152 Blood Pressure Diastolic: 99 Baseline Vitals Vital Signs Date Time Temp Pulse Resp B/P (MAP) Pulse Ox O2 Delivery O2 Flow Rate FiO2 01/31/20 09:33 78 152/99 (116) 99 Baseline EKG: Baseline EKG: Normal sinus rhythm Summary After explaining the procedure to the patient, he signed a consent and then brought to the stress nuclear laboratory. Patient received 0.4 mg Lexiscan for stress test, ECG, heart rate and blood pressure were monitored continuously. Resting and stress dose of radio tracer were injected, imaging was acquired and reviewed in short axis, horizontal long axis and vertical long axis views. TID: 1.07 SSS: 5 SDS: 3 EF: 32 1. Patient tolerated Lexiscan well 2. Patchy uptake with mild decreased uptake involving the inferior wall with mild reversibility, no significant ischemia or infarction noted on SPECT images 3. Dilated left ventricle with diffuse hypokinesia, EF 32 percent MICHELLE PERAZA MD Jan 31, 2020 13:55
== END ==
LOC: CARD 07:20
PROVIDERS: ATTEND Internal Medicine Cardiovascular Disease
DX: I11.0 Hypertensive heart disease with heart failure (principal); I50.1 Left ventricular failure, unspecified; E11.9 Type 2 diabetes mellitus without complications; R91.1 Solitary pulmonary nodule; M19.90 Unspecified osteoarthritis, unspecified site
CPT/HCPCS: 78452; 93017; A9502

== ENCOUNTER → 2020-04-08 | Outpatient (CLI) | payer OTHER ==
[~2020-04-08] MED LIST changes: -REGADENOSON 0.4 MG/5 ML SYR (LEXISCAN) IV ONE
== END ==
LOC: CARD 09:00
PROVIDERS: ATTEND Internal Medicine Cardiovascular Disease
DX: I34.0 Nonrheumatic mitral (valve) insufficiency (principal); I11.0 Hypertensive heart disease with heart failure; I50.9 Heart failure, unspecified; E11.9 Type 2 diabetes mellitus without complications; M19.90 Unspecified osteoarthritis, unspecified site; R91.1 Solitary pulmonary nodule
CPT/HCPCS: 93306

== ENCOUNTER → 2020-05-08 | Outpatient (CLI) | payer OTHER | LOC: LABNPT 08:53 | PROVIDERS: ATTEND Family Medicine | DX: R06.02 Shortness of breath (principal); Z20.828 Contact with and (suspected) exposure to other viral communicable diseases | CPT/HCPCS: 87635 ==

== ENCOUNTER → 2020-05-08 | Outpatient (CLI) | payer OTHER ==
--- NOTE | 2020-05-08 09:25 | Diagnostic Imaging Report ---
INDICATION: Shortness of breath and cough. TIME OF EXAM: 9:14 AM Correlation is made with prior chest from 11/16/2019. FINDINGS: The heart is mildly enlarged but stable. The pulmonary vascularity is normal. No infiltrate is detected. There is slight blunting of the costophrenic angles on the lateral view. This could indicate minimal pleural fluid or pleural thickening. No infiltrates are detected. There is no pneumothorax. IMPRESSION: Minimal pleural fluid or pleural thickening bilaterally. No infiltrates are detected. Dictated by: Dictated on workstation # [id number]
[2020-05-08 09:45] LABS: BASOPHILS # (AUTO) 0.1 10^3/uL (0.0-0.1); BASOPHILS % (AUTO) 1 % (0-10); EOSINOPHILS # (AUTO) 0.4 10^3/uL (0.0-0.3); EOSINOPHILS % (AUTO) 4 % (0-10); HEMATOCRIT 45 % (40-54); HEMOGLOBIN 15.1 g/dL (13.3-17.7); LYMPHOCYTES # (AUTO) 2.2 10^3/uL (1.0-4.0); LYMPHOCYTES % (AUTO) 21 % (12-44); MEAN CORPUSCULAR HEMOGLOBIN 30 pg (25-34); MEAN CORPUSCULAR HGB CONC 34 g/dL (32-36); MEAN CORPUSCULAR VOLUME 90 fL (80-99); MEAN PLATELET VOLUME 12.8 fL (9.0-12.2); MONOCYTES # (AUTO) 0.6 10^3/uL (0.0-1.0); MONOCYTES % (AUTO) 6 % (0-12); NEUTROPHILS % (AUTO) 67 % (42-75); PLATELET COUNT 163 10^3/uL (130-400); WHITE BLOOD COUNT 10.3 10^3/uL (4.3-11.0)
[2020-05-08 10:02] LABS: ALBUMIN 3.6 GM/DL (3.2-4.5); BILIRUBIN,TOTAL 1.6 MG/DL (0.1-1.0); CALCIUM 8.9 MG/DL (8.5-10.1); CREATININE SERUM 1.58 MG/DL (0.60-1.30); POTASSIUM 3.1 MMOL/L (3.6-5.0); TOTAL PROTEIN 6.2 GM/DL (6.4-8.2)
== END ==
LOC: RAD 08:58
PROVIDERS: ATTEND Nurse Practitioner Family
DX: R06.02 Shortness of breath (principal); R05 Cough
CPT/HCPCS: 36415; 71046; 80053; 83880; 85025

== ENCOUNTER 2020-10-18 10:53 | Outpatient (RCR) | payer OTHER ==
[2020-11-13] MEDS ORDERED: POTA20TA15 PO (15:00)
[2020-11-13] MEDS ORDERED: CARV25TA PO (15:00)
[2020-11-13] MEDS ORDERED: OMEG-179 PO (15:00)
[2020-11-13] MEDS ORDERED: MELA5TAB14 PO (15:00)
[2020-11-13] MEDS ORDERED: LIRA0.6P3 SC (15:00)
[2020-11-13] MEDS ORDERED: METO5TAB6 PO (15:00)
[2020-11-13] MEDS ORDERED: ATOR40TA70 PO (15:00)
[2020-11-13] MEDS ORDERED: ASPI-1238 PO (15:00)
[2020-11-13] MEDS ORDERED: LEVO25TA5 PO ×2 (15:00)
[2020-11-13] MEDS ORDERED: CLOP75TA28 PO (15:00)
[2020-11-13] MEDS ORDERED: SACU1TAB7 PO (15:00)
[2020-11-13] MEDS ORDERED: AMIT50TA3 PO (15:00)
[2020-11-13] MEDS ORDERED: INSU100I34 SQ ×2 (15:05)
[2020-11-13] MEDS ORDERED: TMSL.4C PO (15:09)
== END 2020-12-24 | disposition home or self-care (01) ==
LOC: CR 10:53
PROVIDERS: ATTEND Internal Medicine Cardiovascular Disease
DX: Z95.5 Presence of coronary angioplasty implant and graft (principal)
CPT/HCPCS: 93798

== ENCOUNTER 2020-11-12 18:53 | Inpatient (IN) | payer OTHER ==
[~2020-11-12] VITALS: Ht 172 cm; Wt 90.5 kg
--- NOTE | 2020-11-12 19:40 | ED General ---
General Chief Complaint: Altered Mental Status Stated Complaint: SPEECH PROBLEMS/AMS Nursing Triage Note: brought in by for altered mental status, confusion, disorganized speech. increased lethargy, decreased appetite. last known well time wednesday. Nursing Sepsis Screen: No Definite Risk Source of Information: Patient, Family Exam Limitations: No Limitations History of Present Illness Date Seen by Provider: November 12, 2020 Time Seen by Provider: 19:20 Initial Comments Patient is a 60-year-old male who presents to the emergency room with his this evening with a chief complaint of confusion, difficulty with speech, word finding issues, increased sleep over the last couple of days and generally not feeling well. His relates most of the history and starts out with last night he wandered around the house most of the night and had an episode of vomiting. She states when she talked to him early this morning and then again this afternoon he seemed to have increasing difficulty with broken speech and word finding difficulties. She states that he has a history of heart disease and does cardio therapy supposed to 3 times a week but missed last Wednesday. She states that he has type 2 diabetes. She reports that he is mostly noncompliant with his medications. His family doctor is Dr. Maharaj. No recent traumas but he has had head trauma in the past and a small stroke related to that. Patient denies any recent fevers, chills, cough congestion shortness of breath or chest pain. No abdominal pain or current nausea vomiting. No other GI or complaints. He does not currently have a headache. He states that he is frustrated with his speech. All other review of systems reviewed and negative except as stated above. Timing/Duration: 2-3 Days Severity: Moderate Associated Systoms: Loss of Appetite, Malaise, Nausea/Vomiting Allergies and Home Medications Allergies Coded Allergies: No Known Drug Allergies (Unverified , 01/30/10) Home Medications Amitriptyline Hcl 10 Mg Tab, 10 MG PO HS, (Reported) Aspirin 81 Mg Chew, 81 MG PO DAILY, (Reported) Atorvastatin Calcium 10 Mg Tablet, 10 MG PO HS, (Reported) Clopidogrel Bisulfate 75 Mg Tablet, 75 MG PO DAILY Prescribed by: MICHELLE CANSECO on 02/07/17 1214 Furosemide 40 Mg Tablet, 40 MG PO DAILY, (Reported) Insulin Glargine,Hum.rec.anlog 100 Unit/1 Ml Insuln.pen, 20 UNIT SQ DAILY, (Reported) Insulin Glargine,Hum.rec.anlog 100 Unit/1 Ml Insuln.pen, 40 UNIT SQ HS, (Reported) Metoprolol Succinate 50 Mg Tab.er.24h, 50 MG PO DAILY, (Reported) Ranitidine Hcl 150 Mg Tablet, 150 MG PO BID, (Reported) Sacubitril/Valsartan 1 Each Tablet, 1 TAB PO BID, (Reported) Tamsulosin HCl 0.4 Mg Cap.er.24h, 0.4 MG PO DAILY, (Reported) Patient Home Medication List Home Medication List Reviewed: Yes Review of Systems Review of Systems Constitutional: see HPI EENTM: no symptoms reported Respiratory: no symptoms reported Cardiovascular: no symptoms reported Gastrointestinal: vomiting (Last evening) Genitourinary: no symptoms reported Musculoskeletal: no symptoms reported Skin: no symptoms reported Psychiatric/Neurological: Denies Headache, Denies Numbness, Denies Paresthesia, Denies Pre-Existing Deficit, Denies Seizure, Denies Tingling, Denies Tremors, Denies Weakness; Other (Word finding difficulties/broken speech) All Other Systems Reviewed Negative Unless Noted: Yes Past Nacberw-Fxnewj-Ityled Hx Patient Social History Alcohol Use: Denies Use Type Used: Smokeless Tobacco Recent Infectious Disease Expo: No Recent Hopitalizations: No Immunizations Up To Date Tetanus Booster (TDap): Less than 5yrs Date of Pneumonia Vaccine: Jul 13, 2012 Date of Influenza Vaccine: Apr 28, 2019 Seasonal Allergies Seasonal Allergies: No Past Medical History Surgeries: Yes (herniated disk) Coronary Stent, Gallbladder, Orthopedic Respiratory: No Cardiac: Yes (stent placed) Coronary Artery Disease, High Cholesterol, Hypertension Neurological: Yes TIA Reproductive Disorders: No Sexually Transmitted Disease: No Genitourinary: Yes Benign Prostatic Hyperpl, Prostate Problems Gastrointestinal: Yes Gastroesophageal Reflux Musculoskeletal: Yes Arthritis, Chronic Back Pain Endocrine: No Hypothyroidsim, Diabetes, Non-Insulin dep HEENT: No Loss of Vision: Denies Hearing Impairment: Hard of Hearing Cancer: No Psychosocial: No Integumentary: No Blood Disorders: No Adverse Reaction/Blood Tranf: No Family Medical History Congenital heart disease 03 MOTHER Family history: Diabetes mellitus 03 FATHER 03 MOTHER 09 SISTER Heart Disease Physical Exam Vital Signs Vital Signs - First Documented 11/12/20 18:57 Temp 35.7 Pulse 99 Resp 18 B/P (MAP) 139/97 (111) Pulse Ox 100 O2 Delivery Room Air Capillary Refill : Less Than 3 Seconds Height, Weight, BMI Height: 5'8.00" Weight: 237lbs. 0.0oz. 107.509426ps; .00 BMI Method:Stated General Appearance: No Apparent Distress, WD/WN Eyes: Bilateral Eye Normal Inspection, Bilateral Eye PERRL, Bilateral Eye EOMI Neck: Normal Inspection Respiratory: Lungs Clear, Normal Breath Sounds, No Accessory Muscle Use, No Respiratory Distress Cardiovascular: Regular Rate, Rhythm, Normal Peripheral Pulses Gastrointestinal: Normal Bowel Sounds, Non Tender Extremity: Normal Inspection, Normal Range of Motion Neurologic/Psychiatric: Alert, Oriented x3, No Motor/Sensory Deficits, Normal Mood/Affect, panel coverer II-XII Norm as Tested, Other (Patient states that the year is "1020". He knows that he is at [address]. He knows the month is October. He does demonstrate very mild expressive aphasia with occasional broken words or missed words.) Skin: Normal Color, Warm/Dry Progress/Results/Core Measures Suspected Sepsis Recent Fever Within 48 Hours: No Infection Criteria Present: None New/Unexplained Altered Menta: No Sepsis Screen: No Definite Risk SIRS Temperature: Pulse: 99 Respiratory Rate: 18 Laboratory Tests 11/12/20 19:05: White Blood Count 7.5 Blood Pressure 139 /97 Mean: 111 Laboratory Tests 11/12/20 19:05: Creatinine 1.87H, Platelet Count 172, Total Bilirubin 1.4H Results/Orders Lab Results Laboratory Tests Test 11/12/20 19:05 Range/Units White Blood Count 7.5 4.3-11.0 10^3/uL Red Blood Count 6.13 H 4.30-5.52 10^6/uL Hemoglobin 18.4 H 13.3-17.7 g/dL Hematocrit 54 40-54 % Mean Corpuscular Volume 88 80-99 fL Mean Corpuscular Hemoglobin 30 25-34 pg Mean Corpuscular Hemoglobin Concent 34 32-36 g/dL Red Cell Distribution Width 14.0 10.0-14.5 % Platelet Count 172 130-400 10^3/uL Mean Platelet Volume 13.8 H 9.0-12.2 fL Immature Granulocyte % (Auto) 0 % Neutrophils (%) (Auto) 57 42-75 % Lymphocytes (%) (Auto) 31 12-44 % Monocytes (%) (Auto) 10 0-12 % Eosinophils (%) (Auto) 2 0-10 % Basophils (%) (Auto) 1 0-10 % Neutrophils # (Auto) 4.3 1.8-7.8 10^3/uL Lymphocytes # (Auto) 2.3 1.0-4.0 10^3/uL Monocytes # (Auto) 0.7 0.0-1.0 10^3/uL Eosinophils # (Auto) 0.1 0.0-0.3 10^3/uL Basophils # (Auto) 0.1 0.0-0.1 10^3/uL Immature Granulocyte # (Auto) 0.0 0.0-0.1 10^3/uL Percent Immature Platelet Fraction 17.7 H 0.0-7.6 % Sodium Level 133 L 135-145 MMOL/L Potassium Level 3.7 3.6-5.0 MMOL/L Chloride Level 93 L 98-107 MMOL/L Carbon Dioxide Level 29 21-32 MMOL/L Anion Gap 11 5-14 MMOL/L Blood Urea Nitrogen 23 H 7-18 MG/DL Creatinine 1.87 H 0.60-1.30 MG/DL Estimat Glomerular Filtration Rate 37 BUN/Creatinine Ratio 12 Glucose Level 354 H 70-105 MG/DL Calcium Level 9.6 8.5-10.1 MG/DL Corrected Calcium 9.9 8.5-10.1 MG/DL Total Bilirubin 1.4 H 0.1-1.0 MG/DL Aspartate Amino Transf (AST/SGOT) 33 5-34 U/L Alanine Aminotransferase (ALT/SGPT) 30 0-55 U/L Alkaline Phosphatase 101 40-136 U/L Total Creatine Kinase 57 30-200 U/L Creatine Kinase MB 2.7 <6.6 NG/ML Troponin I 0.080 H <0.028 NG/ML Total Protein 6.8 6.4-8.2 GM/DL Albumin 3.6 3.2-4.5 GM/DL My Orders Orders - ADRIANA ACEVES MD Ed Iv/Invasive Line Start (11/12/20 19:41) Cbc With Automated Diff (11/12/20 19:41) Comprehensive Metabolic Panel (11/12/20 19:41) Creatine Kinase (11/12/20 19:41) Creatine Kinase Mb (11/12/20 19:41) Troponin I (11/12/20 19:41) Ekg Tracing (11/12/20 19:41) Chest 1 View, Ap/Pa Only (11/12/20 19:41) Ct Head Wo (11/12/20 19:41) Accucheck Stat ONCE (11/12/20 19:46) Aspirin Chewable Tablet (Baby Aspirin Ch (11/13/20 09:00) Aspirin Chewable Tablet (Baby Aspirin Ch (11/12/20 20:31) Vital Signs/I&O 11/12/20 18:57 Temp 35.7 Pulse 99 Resp 18 B/P (MAP) 139/97 (111) Pulse Ox 100 O2 Delivery Room Air Capillary Refill : Less Than 3 Seconds Blood Pressure Mean: 111 Progress Note : Time: 20:51 Progress Note Case discussed with Dr. Maharaj, recommends inpatient admission, consultation with cardiology. ECG Initial ECG Impression Date: November 12, 2020 Initial ECG Impression Time: 19:15 Initial ECG Rate: 95 Initial ECG Rhythm: Normal Sinus Initial ECG Intervals: Normal Initial ECG Impression: Nonspecific Changes Comment Inverted T waves in leads V5 and V6. Nonspecific ST-T wave changes inferiorly with Q waves inferiorly Diagnostic Imaging Diagonstic Imaging: Xray, CT Plain Films/CT/US/NM/MRI: chest, head Comments [facility], [place] NAME: ANGIE ROCHA [facility] REC#: [id number] PT STATUS: REG ER : 1960 PHYSICIAN: ADRIANA ACEVES MD ADMIT DATE: 11/12/20/ER Draft Date of Exam:11/12/20 CHEST 1 VIEW, AP/PA ONLY EXAM: PA chest at 8:02 PM INDICATION: Confusion The heart size is within normal limits and stable when compared to 05/08/2020. The prior study did note minimal bibasilar atelectasis/infiltrate and fluid. On this exam, however, the lungs seem generally clear and well aerated. There is no evidence for failure, pneumonia or for a pleural effusion. The mediastinum is not widened. The osseous structures are intact. IMPRESSION: There is no evidence for active disease. Dictated on workstation # [id number] Dict: 11/12/202030 Trans: 11/12/202039 [facility] [id number] Interpreted by: JESSICA PIMENTEL MD Electronically signed by: [facility], [place] NAME: ANGIE ROCHA [facility] REC#: [id number] PT STATUS: REG ER : 1960 PHYSICIAN: ADRIANA ACEVES MD ADMIT DATE: 11/12/20/ER Draft Date of Exam:11/12/20 CT HEAD WO PROCEDURE: CT head without contrast. TECHNIQUE: Multiple contiguous axial images were obtained through the brain without the use of intravenous contrast. Auto Exposure Controls were utilized during the CT exam to meet ALARA standards for radiation dose reduction. INDICATION: Confusion There is no mass, shift of the midline or hemorrhage to suggest an acute intracranial abnormality. However, in the interval since the prior study of 01/30/2010, a 1.4 x 2.1 cm area of low density has developed along the medial aspect of the right occipital lobe. I suspect this is related to encephalomalacia from a prior infarct. There is also a vague area of slightly diminished signal in the periphery of the left parietal lobe posteriorly. (Image 37 of 65). This finding is of uncertain etiology but could also be related to encephalomalacia from a prior infarct. The possibility that this is secondary to brain edema from an acute infarct should also be considered. If further imaging is desired, then MRI would be recommended. The ventricles are not abnormally dilated and stable in size when compared to the prior exam. The bone windows show no evidence for a fracture or for a destructive lesion. The orbits are symmetrical and within normal limits. IMPRESSION: 1. There is no mass or hemorrhage identified. 2. The area of diminished density along the medial aspect of the right occipital lobe is most likely due to encephalomalacia from a prior infarct. However, the vague area of slightly diminished density in the left parietal lobe posteriorly is of uncertain etiology. Considerations and recommendations as above. Dictated on workstation # [id number] Dict: 11/12/202025 Trans: 11/12/202038 [facility] [id number] Interpreted by: JESSICA PIMENTEL MD Electronically signed by: Departure Communication (Admissions) Time/Spoke to Admitting Phy: 20:[address] Maharaj who accepts the patient for inpatient admission Time/Spoke to Consulting Phy: 21:[address] Valle who will see the patient in consultation Impression Primary Impression: Altered mental status Qualified Codes: R41.82 - Altered mental status, unspecified Additional Impressions: Elevated troponin Acute kidney injury Cardiomyopathy Qualified Codes: I42.9 - Cardiomyopathy, unspecified Disposition: 09 ADMITTED INPATIENT Condition: Stable Admissions Decision to Admit Reason: Admit from ER (General) Decision to Admit/Date: November 12, 2020 Time/Decision to Admit Time: 21:03 Departure-Patient Inst. Referrals: MYKEL MAHARAJ MD (PCP/Family) Primary Care Physician ADRIANA ACEVES MD November 12, 2020 19:40
[2020-11-12 19:47] LABS: BASOPHILS # (AUTO) 0.1 10^3/uL (0.0-0.1); BASOPHILS % (AUTO) 1 % (0-10); MEAN CORPUSCULAR VOLUME 88 fL (80-99); MEAN PLATELET VOLUME 13.8 fL (9.0-12.2); NEUTROPHILS # (AUTO) 4.3 10^3/uL (1.8-7.8)
[2020-11-12 19:49] LABS: EOSINOPHILS # (AUTO) 0.1 10^3/uL (0.0-0.3); EOSINOPHILS % (AUTO) 2 % (0-10); HEMATOCRIT 54 % (40-54); HEMOGLOBIN 18.4 g/dL (13.3-17.7); LYMPHOCYTES # (AUTO) 2.3 10^3/uL (1.0-4.0); LYMPHOCYTES % (AUTO) 31 % (12-44); MEAN CORPUSCULAR HEMOGLOBIN 30 pg (25-34); MEAN CORPUSCULAR HGB CONC 34 g/dL (32-36); MONOCYTES # (AUTO) 0.7 10^3/uL (0.0-1.0); MONOCYTES % (AUTO) 10 % (0-12); NEUTROPHILS % (AUTO) 57 % (42-75); PLATELET COUNT 172 10^3/uL (130-400); WHITE BLOOD COUNT 7.5 10^3/uL (4.3-11.0)
[2020-11-12 20:00] LABS: ALBUMIN 3.6 GM/DL (3.2-4.5); BILIRUBIN,TOTAL 1.4 MG/DL (0.1-1.0); CALCIUM 9.6 MG/DL (8.5-10.1); CREATININE SERUM 1.87 MG/DL (0.60-1.30); POTASSIUM 3.7 MMOL/L (3.6-5.0); TOTAL PROTEIN 6.8 GM/DL (6.4-8.2)
[2020-11-12 20:07] LABS: CREATINE KINASE MB 2.7 NG/ML (<6.6)
[2020-11-12] MEDS ORDERED: ASPIRIN 81 MG CHEW (CHILDREN'S ASA) ONE (20:31)
--- NOTE | 2020-11-12 20:39 | Diagnostic Imaging Report ---
PROCEDURE: CT head without contrast. TECHNIQUE: Multiple contiguous axial images were obtained through the brain without the use of intravenous contrast. Auto Exposure Controls were utilized during the CT exam to meet ALARA standards for radiation dose reduction. INDICATION: Confusion There is no mass, shift of the midline or hemorrhage to suggest an acute intracranial abnormality. However, in the interval since the prior study of 01/30/2010, a 1.4 x 2.1 cm area of low density has developed along the medial aspect of the right occipital lobe. I suspect this is related to encephalomalacia from a prior infarct. There is also a vague area of slightly diminished signal in the periphery of the left parietal lobe posteriorly. (Image 37 of 65). This finding is of uncertain etiology but could also be related to encephalomalacia from a prior infarct. The possibility that this is secondary to brain edema from an acute nonhemorrhagic infarct should also be considered. If further imaging is desired, then MRI would be recommended. The ventricles are not abnormally dilated and stable in size when compared to the prior exam. The bone windows show no evidence for a fracture or for a destructive lesion. The orbits are symmetrical and within normal limits. IMPRESSION: 1. There is no mass or hemorrhage identified. 2. The area of diminished density along the medial aspect of the right occipital lobe is most likely due to encephalomalacia from a prior infarct. However, the vague area of slightly diminished density in the left parietal lobe posteriorly is of uncertain etiology. Considerations and recommendations as above. Dictated by: Dictated on workstation # [id number]
--- NOTE | 2020-11-12 20:40 | Diagnostic Imaging Report ---
EXAM: PA chest at 8:02 PM INDICATION: Confusion The heart size is within normal limits and stable when compared to 05/08/2020. The prior study did note minimal bibasilar atelectasis/infiltrate and fluid. On this exam, however, the lungs seem generally clear and well aerated. There is no evidence for failure, pneumonia or for a pleural effusion. The mediastinum is not widened. The osseous structures are intact. IMPRESSION: There is no evidence for active disease. Dictated by: Dictated on workstation # [id number]
[2020-11-12 22:16] VITALS: BP 137/98
[2020-11-12] MEDS ORDERED: CATHETER FLUSH 10 ML SYR IV PRN (22:45)
[2020-11-12] MEDS ORDERED: inSUlin ASPART (NovoLOG) 1 UNIT/0.01 ML (CHARGE PER UNIT) ONE (22:48)
[2020-11-12] MEDS: inSUlin ASPART (NovoLOG) 1 UNIT/0.01 ML (CHARGE PER UNIT) SC SCH (22:57)
[2020-11-12] MEDS: CLOPIDOGREL 75 MG (PLAVIX) TABLET PO SCH (22:57)
[2020-11-12 23:00] VITALS: BP 139/104
[2020-11-12 23:53] VITALS: BP 137/98
[2020-11-13] VITALS: BP 150/95
[2020-11-13] MEDS ORDERED: RT-ALBUTEROL/IPRATROPIUM 3 ML (DUONEB) VIAL INH PRN
[2020-11-13] MEDS ORDERED: ACETAMINOPHEN 325 MG TABLET ONE (03:33)
[2020-11-13] MEDS ORDERED: IBUPROFEN 600 MG (MOTRIN) TAB PO PRN (03:45)
[2020-11-13] MEDS ORDERED: ACETAMINOPHEN 325 MG TABLET PO PRN (03:45)
[2020-11-13 04:00] VITALS: BP 140/113
[2020-11-13] MEDS: CATHETER FLUSH 10 ML SYR IV SCH ×3 (06:00→21:14)
[2020-11-13] MEDS: inSUlin ASPART (NovoLOG) 1 UNIT/0.01 ML (CHARGE PER UNIT) SC SCH ×4 (06:02→20:40)
[2020-11-13] MEDS ORDERED: GADOBUTROL 10 MMOL/10 ML (GADAVIST) VIAL IV ONE (08:15)
--- NOTE | 2020-11-13 08:33 | History & Physical ---
History of Present Illness History of Present Illness Reason for visit/HPI ANGIE IS A 60 Y/O MALE WHO IS A PATIENT IN MY PRACTICE. 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 HOWEVER HE HAS MISSED SEVERAL APPOINTMENTS RECENTLY. HE PRESENTED TO THE HOSPITAL WITH AN EPISODE OF CONFUSION WITH WORD FINDING DIFFICULTY. APPARENTLY ON WEDNESDAY HE WAS "ACTING UNUSUAL" WITH SIGNIFICANT PHYSICAL ACTIVITY AND WANDERING IN THE MIDDLE OF THE NIGHT, PASSING EXCESSIVE FLATUS, AND THEN SLEEPING FOR A PROLONGED PERIOD OF TIME. HIS THOUGHT THAT HE SEEMED A LITTLE BIT BETTER ON WEDNESDAY, AND THEN HE WAS HAVING MORE TROUBLE AGAIN ON WEDNESDAY SO SHE REPORTS THAT AFTER WORK ON WEDNESDAY, SHE CAME HOME AND THEY DISCUSSED HIS SYMPTOMS AND THEY FINALLY DECIDED TO BRING HIM INTO THE HOSPITAL. THIS MORNING MR. ROCHA AND HIS REPORT THAT HE IS STILL HAVING SOME WORD- FINDING TROUBLE, BUT IT SEEMS TO BE BETTER THAN ON ADMISSION. HE ADMITS TO NOT USING HIS CPAP, HAS NOT BEEN CHECKING HIS FSBS REGULARLY. Date of Admission November 12, 2020 at 20:59 Date Seen by a Provider: November 13, 2020 Time Seen by a Provider: 08:30 I consulted on this patient on 11/13/20 08:33 Attending Physician Mykel Carrillo MD Admitting Physician Mykel Carrillo MD Consult CARDIOLOGY Allergies and Home Medications Allergies Coded Allergies: No Known Drug Allergies (Unverified , 01/30/10) Home Medications Amitriptyline HCl 50 Mg Tablet, 50 MG PO HS PRN for SLEEP, (Reported) Last Action: Continued Aspirin 81 Mg Tablet.dr, 81 MG PO DAILY, (Reported) Last Action: Reviewed Atorvastatin Calcium 40 Mg Tablet, 40 MG PO HS, (Reported) Last Action: Continued Carvedilol 25 Mg Tablet, 25 MG PO BID, (Reported) Last Action: Reviewed Clopidogrel Bisulfate 75 Mg Tablet, 75 MG PO DAILY, (Reported) Last Action: Reviewed Furosemide 40 Mg Tablet, 40 MG PO 0700,1200, (Reported) Last Action: Reviewed Insulin Glargine,Hum.rec.anlog 100 Unit/1 Ml Insuln.pen, 27 UNIT SQ DAILY, (Reported) Last Action: Converted Insulin Glargine,Hum.rec.anlog 100 Unit/1 Ml Insuln.pen, 40 UNIT SQ HS, (Reported) Last Action: Converted Levothyroxine Sodium 25 Mcg Tablet, 50 MCG PO WED,WED,WED, (Reported) TAKES 2 (25MCG) TABS Last Action: Continued Levothyroxine Sodium 25 Mcg Tablet, 25 MCG PO WED,,, (Reported) Last Action: Continued Liraglutide 0.6 Mg/0.1 Ml Pen.injctr, 1.8 MG SC HS, (Reported) Last Action: Reviewed Melatonin 5 Mg Tablet, 5 MG PO HS PRN for SLEEP, (Reported) Last Action: Reviewed Metolazone 5 Mg Tablet, 5 MG PO DAILY PRN for FLUID RETENTION, (Reported) Last Action: Reviewed [place]-3S/Dha/Epa/Fish Oil 1 Each Capsule, 1 EACH PO DAILY, (Reported) Last Action: Reviewed Potassium Chloride 20 Meq Tab.er.prt, 20 MEQ PO BID PRN for WHEN TAKING METOLAZONE, (Reported) Last Action: Reviewed Sacubitril/Valsartan 1 Each Tablet, 1 EA PO BID, (Reported) Last Action: Converted Tamsulosin HCl 0.4 Mg Cap, 0.4 MG PO DAILY, (Reported) LAST FILLED 01-21-2020 #90/90 DAY SUPPLY Last Action: Continued Patient Home Medication List Home Medication List Reviewed: Yes Past Mgukkok-Qtstzp-Kxhzeg Hx Past Med/Social Hx: Reviewed Nursing Past Med/Soc Hx, Reviewed and Corrections made Patient Social History Marrital Status: Living Status: LIVES WITH AT HOME Alcohol Use: Denies Use Recreational Drug Use: No Smoking Status: Light Tobacco Smoker Type Used: Smokeless Tobacco 2nd Hand Smoke Exposure: No Physical Abuse Screen: No Sexual Abuse: No Recent Foreign Travel: No Contact w/other who traveled: No Recent Hopitalizations: No Recent Infectious Disease Expo: No Immunizations Up To Date Tetanus Booster (TDap): Less than 5yrs Date of Pneumonia Vaccine: Jul 13, 2012 Date of Influenza Vaccine: Apr 28, 2019 Seasonal Allergies Seasonal Allergies: No Past Medical History Surgeries: Coronary Stent, Gallbladder, Orthopedic (LEFT TOTAL KNEE REPLACEMENT), Tonsillectomy Currently Using CPAP: No (BUT HAS CPAP AT HOME) Currently Using BIPAP: No Cardiac: Coronary Artery Disease, Heart Attack, High Cholesterol, Hypertension Neurological: Stroke, TIA, Traumatic Brain Injury (OCTOBER 2016 SUBDURAL AND SUBARACHNOID BLEEDS) Reproductive: No Sexually Transmitted Disease: No Genitourinary: Benign Prostatic Hyperpl, Prostate Problems Gastrointestinal: Gastroesophageal Reflux Musculoskeletal: Arthritis, Chronic Back Pain Endocrine: Hypothyroidsim, Diabetes, Non-Insulin dep Loss of Vision: Denies Hearing Impairment: Hard of Hearing History of Blood Disorders: No Adverse Reaction to Blood Cagle: No Family History Reviewed and Corrections made Congenital heart disease 03 MOTHER Family history: Diabetes mellitus 03 FATHER 03 MOTHER 09 SISTER Heart Disease, Diabetes, Hypertension Review of Systems Constitutional: No chills, No diaphoresis, No dizziness, No fever; malaise, weakness EENTM: No hearing loss, No blurred vision, No double vision, No eye pain, No v ision loss, No hoarseness, No throat pain Respiratory: dyspnea on exertion, short of breath Cardiovascular: see HPI; No chest pain, No edema; Hx of Intervention; No palpitations; vascular heart diseas Gastrointestinal: No abdominal pain, No constipation, No hematemesis, No loss of appetite Genitourinary: no symptoms reported Musculoskeletal: muscle weakness Skin: lesions (CHRONIC ON LOWER LEGS) Psychiatric/Neurological: Weakness All Other Systems Reviewed Negative Unless Noted: Yes Physical Exam Vital Signs Vital Signs - First Documented 11/12/20 11/12/20 18:57 23:53 Temp 35.7 Pulse 99 Resp 18 B/P (MAP) 139/97 (111) Pulse Ox 100 O2 Delivery Room Air FiO2 21 Capillary Refill : Less Than 3 Seconds Height, Weight, BMI Height: 5'8.00" Weight: 237lbs. 0.0oz. 107.927323on; 30.59 BMI Method:Stated General Appearance: No Apparent Distress, WD/WN HEENT: PERRL/EOMI, Normal ENT Inspection, Pharynx Normal Neck: Full Range of Motion, Supple Respiratory: Chest Non Tender, Lungs Clear, Normal Breath Sounds, No Accessory Muscle Use, No Respiratory Distress Cardiovascular: Regular Rate, Rhythm, Normal Peripheral Pulses Gastrointestinal: Normal Bowel Sounds, No Organomegaly, No Pulsatile Mass, Non Tender, Soft Rectal: Deferred Back: Normal Inspection, No Vertebral Tenderness Extremity: Normal Capillary Refill, Normal Range of Motion, Non Tender, No Calf Tenderness, No Pedal Edema Neurologic/Psychiatric: Alert, Oriented x3, Normal Mood/Affect, landscape technician II-XII Norm as Tested, Other (SOME WORD FINDING DIFFICULTY, NO MOTOR DEFICIT ON EXAM) Skin: Warm/Dry (EXCEPT AT ANKLES, FEET ARE COOL TO TOUCH) Assessment/Plan Assessment and Plan CORONARY VASCULAR ACCIDENT - ACUTE ON LEFT WITH SUBACUTE FEATURES ON THE RIGHT MIDDLE CEREBRAL ARTERY ON LEFT WITH CORTICAL ENHANCEMENT ON THE RIGHT 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 Acute left parietal lobe infarct, middle cerebral artery territory. 2. Findings suggestive of subacute infarct in the high right posterior parietal lobe which shows some mild cortical enhancement. Follow-up MRI brain in 3 months is recommended to show clearing and/or stability. 3. No acute intracranial hemorrhage is detected. - RECOMMENDATION IS FOR A REPEAT MRI OF BRAIN IN 3 MONTHS - CONTINUE WITH PLAVIX, ASA - CAROTID US REPORT SHOWS MILD CAROTID PLAQUE TYPE II MYOCARDIAL INFARCTION - ELEVATED TROPONIN LAST STRESS TEST 2019 WITH NO SIGNIFICANT ISCHEMIA ON SPECT FROM 01/2020 CORONARY ARTERY DISEASE - HX OF STENTS IN 2012 - HEART CATH 2016 - SEVERE STENOSIS OF MID CIRCUMFLEX AND RIGHT DISTAL CORONARY ARTERY - STENT PLACED TO CIRCUMFLEX AND RCA - HEART CATH 2017 - EF OF 35% STAGE 3B RENAL FAILURE - RENAL DOSING OF MEDICATION, MONITOR LABS, HOLD LASIX FOR NOW CHF - ECHO TODAY SHOWED: CONCENTRIC HYPERTROPHY, NORMAL SYSTOLIC FUNCTION EF OF 25-30%, DECREASED FROM 30-35% SEVERE DIFFUSE HYPOKINESIS GRADE 2 DIASTOLIC DYSFUNCTION AKINESIS OF MID ANTERIOR, MID ANTEROSEPTAL AND MID INFEROSEPTAL MYOCARDIUM AND SEVERE HYPOKINESIS OF THE BASAL INFEROSEPTAL MYOCARDIUM RIGHT VENTRICAL CAVITY MODERATELY INCREASED IN SIZE, MODERATE TO SEVERELY REDUCED RIGHT VENTRICULAR SYSTOLIC FUNCTION LEFT ATRIUM MOD TO SEVERE DILATION MILD MITRAL VALVE REGURG MILD PULMONARY ARTERY HYPERTENSION AT 30-35mmHg - PT ON ENTRESTO OUTPATIENT OBSTRUCTIVE SLEEP APNEA - PT IS NOT COMPLIANT WITH USE OF HIS CPAP - HE STATES THAT THE MASK DOES NOT FIT WELL HE WOULD LIKE AND HE DOES NOT LIKE HOW IT DRIES OUT HIS MOUTH. POLYCYTHEMIA - LIKLEY MULTIFACTORIAL - HYPOXIA FROM SLEEP APNEA, I HAVE ASKED THE [facility] ABOUT PAST HX OF HILAR LYMPHADENOPATHY AND LUNG NODULE REMOTE HX OF HEAD TRAUMA WITH SKULL FRACTURE OF OCCIPITAL BONE AND SUBDURAL AND SUBARACHNOID BLEED IN 10/2016 DIABETES MELLITUS - NON -COMPLIANT WITH DIET AND MEDICATION - RESUME HOME REGIMEN, CHECK HGBA1C HTN - RESUME HOME REGIMEN HYPERLIPIDEMIA - LIPID PROFILE PENDING BPH - RESUME FLOMAX APPRECIATE CARDIOLOGY INPUT AND AIDE IN CARE OF THE PATIENT. DVT PROPHYLAXIS WITH SCD'S, ON PLAVIX, ASA, NOT ON LOVENOX DUE TO HX OF SEVERE BRAIN BLEED. GI PROPHYLAXIS WITH PROTONIX. 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
[2020-11-13 08:47] LABS: TRIGLYCERIDES 148 MG/DL (<150); VLDL CHOLESTEROL 30 MG/DL (5-40)
[2020-11-13] MEDS: CLOPIDOGREL 75 MG (PLAVIX) TABLET PO SCH (08:53)
[2020-11-13] MEDS: ASPIRIN 81 MG CHEW (CHILDREN'S ASA) PO SCH (08:53)
[2020-11-13] MEDS ORDERED: ASPIRIN 81 MG CHEW (CHILDREN'S ASA) PO SCH (09:00)
--- NOTE | 2020-11-13 09:02 | Diagnostic Imaging Report ---
PROCEDURE: MR imaging of the brain with and without contrast. TECHNIQUE: Multiplanar, multisequence MR imaging of the brain was performed with and without contrast. INDICATION: Difficulty speaking. Correlation is made with prior MRI of the brain from 11/29/2019. Diffusion-weighted images demonstrate a moderate-sized area of diffusion restriction in the left parietal lobe, middle cerebral artery territory consistent with acute infarct. Minimal increased signal in the right posterior parietal lobe is also seen. This area does show some contrast enhancement on postcontrast images and is most suggestive of an area of more subacute ischemia. No enhancement on the left is identified. No acute intra-axial or extra-axial hemorrhage is detected. Normal expected flow-voids within the carotid siphons are seen. There is periventricular and subcortical white matter signal abnormalities consistent with chronic microvascular ischemia. Corpus callosum is unremarkable. Sella and parasellar structures are unremarkable. IMPRESSION: 1. Acute left parietal lobe infarct, middle cerebral artery territory. 2. Findings suggestive of subacute infarct in the high right posterior parietal lobe which shows some mild cortical enhancement. Follow-up MRI brain in 3 months is recommended to show clearing and/or stability. 3. No acute intracranial hemorrhage is detected. Dictated by: Dictated on workstation # [id number]
[2020-11-13 09:33] LABS: CHOLESTEROL 167 MG/DL (< 200)
[2020-11-13 09:34] LABS: HDL CHOLESTEROL 35 MG/DL (40-60)
--- NOTE | 2020-11-13 09:48 | Diagnostic Imaging Report ---
PROCEDURE: US carotid duplex, bilateral. TECHNIQUE: Multiple real-time grayscale images were obtained over the carotid arteries in various projections, bilaterally. Additional spectral analysis and color Doppler duplex images were also obtained. INDICATION: Stroke. There is some mild plaquing at the carotid bulbs and carotid bifurcations extending into the proximal internal and external carotid arteries. The velocities are normal bilaterally. No velocity elevation or stenosis is detected. Both vertebral arteries show antegrade flow. IMPRESSION: Mild bilateral carotid plaque. There is no evidence of a hemodynamically significant stenosis. Parameters based on the consensus panel Negrete-Scale and Doppler ultrasound criteria published April 2003, Radiology, Volume 229. DOPPLER (peak systolic velocity M/S Right Left CCA .63 .84 ICA Proximal .71 .53 ICA Mid .70 .61 ICA Distal .57 .62 RATIO 1.1 .7 ECA .52 .57 VERT .52 .57 Dictated by: Dictated on workstation # [id number]
--- NOTE | 2020-11-13 10:21 | Consultation-Cardiology ---
HPI-Cardiology Cardiology Consultation Date of Consultation 11/13/20 Date of Admission Time Seen by Provider: 08:50 Indication: Elvated troponin, AMS HPI Patient is a 60 y/o male with history of CAD, CHF, DM, AISLINN, medical noncompliance. Presented to the ER last night with c/o AMS at home with dizziness, vomiting and difficulty word finding. Denies any one sided weakness. Denies any chest pain, increased dyspnea, syncope or peripheral edema. Home Medications & Allergies Allergies: Coded Allergies: No Known Drug Allergies (Unverified , 01/30/10) Home Medication List Reviewed: Yes SZE-Ruwrxa-Rtxokh Hx Patient Social History Marital Status: Employed/Student: unemployed Recreational Drug Use: No Smoking Status: Light Tobacco Smoker Type Used: Smokeless Tobacco Recent Hopitalizations: No Have you traveled recently?: No Alcohol Use?: Yes Immunizations Up To Date Tetanus Booster (TDap): Less than 5yrs Date of Pneumonia Vaccine: Jul 13, 2012 Date of Influenza Vaccine: Apr 28, 2019 Past Medical History CAD, CHF, HTN Family Medical History Significant Family History: Heart Disease Family History: Congenital heart disease 03 MOTHER Family history: Diabetes mellitus 03 FATHER 03 MOTHER 09 SISTER Review of Systems-General Review of Systems Constitutional: see HPI, dizziness, malaise, weakness EENTM: see HPI, no symptoms reported; No blurred vision, No double vision Respiratory: no symptoms reported; No cough, No dyspnea on exertion, No orthopnea Cardiovascular: no symptoms reported, see HPI; No chest pain, No edema; Hx of Intervention; No syncope; vascular heart diseas Gastrointestinal: No abdominal pain, No constipation; vomiting (Last evening) Genitourinary: no symptoms reported Musculoskeletal: no symptoms reported Skin: no symptoms reported Psychiatric/Neurological: Denies Headache, Denies Numbness, Denies Paresthesia, Denies Pre-Existing Deficit, Denies Seizure, Denies Tingling, Denies Tremors, Denies Weakness; Other (Word finding difficulties/broken speech) All Other Systems Reviewed Negative Unless Noted: Yes Reviewed Test Results Reviewed Test Results Lab Laboratory Tests 11/12/20 19:05: White Blood Count 7.5, Red Blood Count 6.13H, Hemoglobin 18.4H, Hematocrit 54, Mean Corpuscular Volume 88, Mean Corpuscular Hemoglobin 30, Mean Corpuscular Hemoglobin Concent 34, Red Cell Distribution Width 14.0, Platelet Count 172, Mean Platelet Volume 13.8H, Immature Granulocyte % (Auto) 0, Neutrophils (%) (Auto) 57, Lymphocytes (%) (Auto) 31, Monocytes (%) (Auto) 10, Eosinophils (%) (Auto) 2, Basophils (%) (Auto) 1, Neutrophils # (Auto) 4.3, Lymphocytes # (Auto) 2.3, Monocytes # (Auto) 0.7, Eosinophils # (Auto) 0.1, Basophils # (Auto) 0.1, Immature Granulocyte # (Auto) 0.0, Percent Immature Platelet Fraction 17.7H, Sodium Level 133L, Potassium Level 3.7, Chloride Level 93L, Carbon Dioxide Level 29, Anion Gap 11, Blood Urea Nitrogen 23H, Creatinine 1.87H, Estimat Glomerular Filtration Rate 37, BUN/Creatinine Ratio 12, Glucose Level 354H, Calcium Level 9.6, Corrected Calcium 9.9, Total Bilirubin 1.4H, Aspartate Amino Transf (AST/SGOT) 33, Alanine Aminotransferase (ALT/SGPT) 30, Alkaline Phosphatase 101, Total Creatine Kinase 57, Creatine Kinase MB 2.7, Troponin I 0.080H, Total Protein 6.8, Albumin 3.6 11/12/20 22:37: Glucometer 312H 11/13/20 05:22: Troponin I 0.065H 11/13/20 05:27: Triglycerides Level 148, Cholesterol Level 167, LDL Cholesterol Direct 107, VLDL Cholesterol 30, HDL Cholesterol 35L 11/13/20 05:58: Glucometer 206H ECG Impression ECG Initial ECG Rhythm: Normal Sinus Physical Exam Physical Exam Vital Signs Vital Signs - First Documented 11/12/20 11/12/20 18:57 23:53 Temp 35.7 Pulse 99 Resp 18 B/P (MAP) 139/97 (111) Pulse Ox 100 O2 Delivery Room Air FiO2 21 Capillary Refill : Less Than 3 Seconds Height, Weight, BMI Height: 5'8.00" Weight: 237lbs. 0.0oz. 107.977715vl; 30.59 BMI Method:Stated General Appearance: No Apparent Distress, WD/WN Eyes: Bilateral Eye Normal Inspection, Bilateral Eye PERRL, Bilateral Eye EOMI Neck: Normal Inspection, Non Tender, Supple; No Carotid Bruit Respiratory: Lungs Clear, Normal Breath Sounds, No Accessory Muscle Use, No Respiratory Distress Cardiovascular: Regular Rate, Rhythm, Normal Peripheral Pulses, Extra Beats Gastrointestinal: Normal Bowel Sounds, Non Tender Extremity: Normal Inspection, Normal Range of Motion Neurologic/Psychiatric: Alert, Oriented x3, No Motor/Sensory Deficits, Normal Mood/Affect, vocational case manager II-XII Norm as Tested, Other (Patient states that the year is "1021". He knows that he is at [address]. He knows the month is October. He does demonstrate very mild expressive aphasia with occasional broken words or missed words.) Skin: Normal Color, Warm/Dry A/P-Cardiology Admission Diagnosis CVA Elevated troponin CAD CHF Assessment/Plan Acute/subacute CVA- MRI done this morning showing acute left parietal lobe infarct, middle cerebral artery territory, findings suggestive of subacute infarct in the high right posterior parietal lobe which shows some mild cortical enhancement. Follow-up MRI brain in 3 months is recommended to show clearing and/or stability. No acute intracranial hemorrhage is detected. Maintained on ASA and Plavix. Carotid US done this morning showing nonobstructive disease bilaterally. Will continue on telemetry, evaluate 2D Echo Mildly elevated troponin, likely type II [place], trending down. EKG showing no acute ST changes. Stress test done January 2020 showing patchy uptake with mild decreased uptake involving the inferior wall with mild reversibility, no significant ischemia or infarction noted on SPECT images. Dilated left ventricle with diffuse hypokinesia, EF 32 percent Coronary artery disease- history of PTCA and stents to LAD using Promus 3 x 24 mm drug-eluting stent on 07/26/2012. Had abnormal stress test and underwent cardiac catheterization with a staged intervention secondary to his recent head trauma and the need to limit aggressive anticoagulation. Left heart catheterization carried out on February 05, 2017 revealed severe stenosis at the mid circumflex artery and distal right coronary artery. Underwent bare metal stent 3.018 mm to the circumflex artery. Patient was brought back for staged intervention and underwent cardiac catheterization on February 06, 2017 with stenting to the RCA using 3.0 x 15 mm bare-metal stent. Cardiac catheterization with Dr. Yanes on November 17, 2017 showed dilated cardiomyopathy with ejection fraction 35 percent, 50 percent in-stent restenosis in the first diagonal and obtuse marginal branch otherwise normal coronaries with normal hemodynamic data. Congestive heart failure, echo was done in November 2019 showing dilated left ventricle, LVH, EF 30-35 percent, grade 2 diastolic dysfunction, left atrium 4.8 cm, mild MR, PA pressure 20 mmHg. Most recent 2D Echo March 2020 revealed EF 30-35% and moderate diffuse hypokinesis. Mild to mod MV, PA 25-30mmHg. 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 Refused Life Vest in the past. Reevaluate 2D Echo AISLINN, has been noncompliant with his CPAP likely resulting in nocturnal hypoxemia. Discussed importance of compliance Polycythemia, unknown etiology, management per Dr. Carrillo Palpitations, history of PAC's, maintained on Toprol XL History of head trauma at work resulted in frontal skull fracture and right occipital bone fracture with mild subdural bleedd and subarachnoid hemorrhage October 2016, recovered fully. Hypertension, resistant to multiple medications. Renal arterial duplex done February 2018 negative for renal arterial stenosis. Restart home blood pressure medications and continue to monitor. Hyperlipidemia, I will evaluate lipid profile Diabetes mellitus, followed and managed by primary care physician BPH Osteoarthritis History of right pulmonary nodule/mediastinal lymphadenopathy-previously followed by [facility] in 2012, no recent work up. Tobaccoism, chewing tobacco. Encouraged to avoiding tobacco product Thank you for allowing us to participate in the management of Mr. Brown. This is Carmelina Cervantes PA-C, as a scribe for Dr. Peraza Patient was seen and evaluated with Carmelina, I interviewed the patient and examined him, I agree with the current scribed note Patient reporting waxing and waning his aphasia, MRI showed subacute infarct in the right posterior parietal lobe. Cryptogenic stroke, discussed with the patient the management plan recommended loop implant Congestive heart failure, chronic compensated left ventricular systolic dysfunction, restart home medication monitor Coronary artery disease, continue to monitor CARMELINA PAZ November 13, 2020 10:21 MICHELLE PERAZA MD November 13, 2020 14:07
[2020-11-13 12:00] VITALS: BP 161/105
[2020-11-13] MEDS ORDERED: LIDOCAINE 1% INJ 20 ML 20 ML VIAL ONE (13:46)
--- NOTE | 2020-11-13 14:19 | Implantation of Loop Monitor ---
Implant of Loop Monitior IMPLANTATION OF LOOP MONITOR REPORT DATE OF PROCEDURE: 11/13/20 PREOP DIAGNOSIS: Cryptogenic stroke POSTOP DIAGNOSIS: Cryptogenic stroke PROCEDURE DETAILS: The patient is a 60 male with cryptogenic stroke requiring long-term surveillance. Therefore implantable loop recorder was discussed and agreed with the patient. Informed consent was taken. All risks and complications were discussed at length. The patient was draped and prepped in the usual sterile fashion. Local anesthesia was lidocaine, which was given in the substernal area close to the 4th intercostal space. Loop monitor Takeacoder with serial number [id number] was implanted according to the protocol. Steri-Strips were placed at the end of the procedure. There were no complications and the patient tolerated the procedure well. The device was interrogated with a voltage of. ANESTHESIA: Local anesthesia with lidocaine. COMPLICATIONS: None CONTRAST/FLUOROSCOPY: None CONCLUSION: Successful implantation of loop monitor with no complication MICHELLE CANSECO MD November 13, 2020 2:19 pm
[2020-11-13] MEDS ORDERED: POTA20TA15 PO (15:00)
[2020-11-13] MEDS ORDERED: AMIT50TA3 PO (15:00)
[2020-11-13] MEDS ORDERED: MELA5TAB14 PO (15:00)
[2020-11-13] MEDS ORDERED: METO5TAB6 PO (15:00)
[2020-11-13] MEDS ORDERED: OMEG-179 PO (15:00)
[2020-11-13] MEDS ORDERED: LIRA0.6P3 SC (15:00)
[2020-11-13] MEDS ORDERED: SACU1TAB7 PO (15:00)
[2020-11-13] MEDS ORDERED: CARV25TA PO (15:00)
[2020-11-13] MEDS ORDERED: ATOR40TA70 PO (15:00)
[2020-11-13] MEDS ORDERED: LEVO25TA5 PO ×2 (15:00)
[2020-11-13] MEDS ORDERED: CLOP75TA28 PO (15:00)
[2020-11-13] MEDS ORDERED: ASPI-1238 PO (15:00)
[2020-11-13] MEDS ORDERED: INSU100I34 SQ ×2 (15:05)
[2020-11-13] MEDS ORDERED: TMSL.4C PO (15:09)
[2020-11-13 16:00] VITALS: BP 167/131
[2020-11-13] MEDS ORDERED: AMITRIPTYLINE 50 MG (ELAVIL) TAB PO PRN (20:00)
[2020-11-13 20:37] VITALS: BP 150/104
[2020-11-13] MEDS: SACUBITRIL/VALSARTAN 24/26 MG (ENTRESTO) TABLET PO SCH (20:40)
[2020-11-13] MEDS ORDERED: VALSARTAN PO SCH (21:00)
[2020-11-13] MEDS ORDERED: [UNRECOGNIZED DRUG - OTHER] PO SCH (21:00)
[2020-11-13] MEDS ORDERED: SACUBITRIL PO SCH (21:00)
[2020-11-14] VITALS (10 sets, daily range): BP systolic 120–144; BP diastolic 72–97
[2020-11-14 03:08] LABS: HEMOGLOBIN 16.1 g/dL (13.3-17.7); MEAN PLATELET VOLUME 12.8 fL (9.0-12.2); WHITE BLOOD COUNT 5.9 10^3/uL (4.3-11.0)
[2020-11-14 03:16] LABS: POTASSIUM 3.7 MMOL/L (3.6-5.0)
[2020-11-14 03:17] LABS: CALCIUM 8.8 MG/DL (8.5-10.1)
[2020-11-14 03:21] LABS: CREATININE SERUM 1.63 MG/DL (0.60-1.30)
[2020-11-14] MEDS: CATHETER FLUSH 10 ML SYR IV SCH ×3 (05:45→21:53)
[2020-11-14] MEDS: inSUlin ASPART (NovoLOG) 1 UNIT/0.01 ML (CHARGE PER UNIT) SC SCH ×4 (05:49→20:17)
[2020-11-14] MEDS ORDERED: LEVOTHYROXINE 25 MCG (LEVOTHROID) TAB PO SCH (06:30)
[2020-11-14] MEDS: TAMSULOSIN 0.4 MG (FLOMAX) CAP PO SCH (08:08)
[2020-11-14] MEDS: ASPIRIN 81 MG CHEW (CHILDREN'S ASA) PO SCH (08:08)
[2020-11-14] MEDS: SACUBITRIL/VALSARTAN 24/26 MG (ENTRESTO) TABLET PO SCH ×2 (08:08→20:16)
[2020-11-14] MEDS: PANTOPRAZOLE 40 MG (PROTONIX) TAB PO SCH (08:08)
[2020-11-14] MEDS: CLOPIDOGREL 75 MG (PLAVIX) TABLET PO SCH (08:08)
--- NOTE | 2020-11-14 08:25 | Cardiology Progress Note ---
Subjective Date Seen by Provider: November 14, 2020 Time Seen by Provider: 08:21 Subjective/Events-last exam Patient is sitting up in bed, eating breakfast. Denies any chest pain or dyspnea. Still having difficulty with word finding. Linq implantation site with C/D/I dressing Objective-Cardiology Exam Last Set of Vital Signs Vital Signs 11/12/20 11/14/20 11/14/20 23:53 07:40 09:00 Temp 36.6 Pulse 82 Resp 23 B/P (MAP) 120/88 (99) Pulse Ox 99 O2 Delivery Room Air FiO2 21 Capillary Refill : Less Than 3 Seconds I&O Intake and Output 11/13/20 23:59 Intake Total 2340 ml Output Total 1700 ml Balance 640 ml Intake Oral 2340 ml Output Urine Total 1700 ml # Voids 2 # Bowel Movements 1 General: Alert, Oriented X3, Cooperative HEENT: Atraumatic, PERRLA Neck: Supple, No JVD, No Thyromegaly Lungs: Clear to Auscultation, Normal Air Movement Heart: Regular Rate, Normal S1, Normal S2, No Murmurs Abdomen: Normal Bowel Sounds, Soft, No Tenderness, No Hepatosplenomegaly, No Masses Extremities: No Edema, Other (clubbing of fingers and toes) Skin: No Rashes, No Significant Lesion Neuro: Other (slight aphasia) Results Lab Laboratory Tests 11/14/20 02:41 A/P-Cardiology Admission Diagnosis CVA Elevated troponin CAD CHF Assessment/Plan Acute/subacute CVA- MRI done this morning showing acute left parietal lobe infarct, middle cerebral artery territory, findings suggestive of subacute infarct in the high right posterior parietal lobe which shows some mild cortical enhancement. Follow-up MRI brain in 3 months is recommended to show clearing and/or stability. No acute intracranial hemorrhage is detected. Maintained on ASA and Plavix. Carotid US done 11/13/20 showing nonobstructive disease bilaterally. S/p LINq implantation for further monitoring for underlying arrhythmia. Mildly elevated troponin, likely type II SD, trending down. EKG showing no acute ST changes. Stress test done January 2020 showing patchy uptake with mild decreased uptake involving the inferior wall with mild reversibility, no significant ischemia or infarction noted on SPECT images. Dilated left ventricle with diffuse hypokinesia, EF 32 percent Coronary artery disease- history of PTCA and stents to LAD using Promus 3 x 24 mm drug-eluting stent on 07/26/2012. Had abnormal stress test and underwent cardiac catheterization with a staged intervention secondary to his recent head trauma and the need to limit aggressive anticoagulation. Left heart catheterization carried out on February 05, 2017 revealed severe stenosis at the mid circumflex artery and distal right coronary artery. Underwent bare metal stent 3.018 mm to the circumflex artery. Patient was brought back for staged intervention and underwent cardiac catheterization on February 06, 2017 with stenting to the RCA using 3.0 x 15 mm bare-metal stent. Cardiac catheterization with Dr. Yanes on November 17, 2017 showed dilated cardiomy opathy with ejection fraction 35 percent, 50 percent in-stent restenosis in the first diagonal and obtuse marginal branch otherwise normal coronaries with normal hemodynamic data. Congestive heart failure, 2D Echo March 2020 revealed EF 30-35% and moderate diffuse hypokinesis. Mild to mod MV, PA 25-30mmHg. 2D Echo done yesterday showing EF 25-30%. Started on Entresto and Coreg. 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 Currently more agreeable on ICD, I am planning on evaluating HESHAM and a LifeVest, possible ICD in about a month AISLINN, has been noncompliant with his CPAP likely resulting in nocturnal hypoxemia. Discussed importance of compliance Polycythemia, unknown etiology, management per Dr. Carrillo Palpitations, history of PAC's, maintained on Toprol XL History of head trauma at work resulted in frontal skull fracture and right occipital bone fracture with mild subdural bleedd and subarachnoid hemorrhage October 2016, recovered fully. Hypertension, resistant to multiple medications. Renal arterial duplex done February 2018 negative for renal arterial stenosis. Restart home blood pressure medications and continue to monitor. Hyperlipidemia, I will evaluate lipid profile Diabetes mellitus, followed and managed by primary care physician BPH Osteoarthritis History of right pulmonary nodule/mediastinal lymphadenopathy-previously followed by via [facility] in 2012, no recent work up. Tobaccoism, chewing tobacco. Encouraged to avoiding tobacco product Patient was seen and evaluated with Carmelina, examination performed, management plan was discussed, agree with the current scribed note, I made few changes to the note using Italic font Patient was seen and evaluated, laying down in bed, comfortable, denied any chest pain Had a long discussion with the patient and his in Dr. Carrillo regarding his management plan due to his worsening heart failure Recommended ICD placement, patient is more agreeable, I am hesitant to do ICD with DFT due to the recent stroke, I will evaluate HESHAM, continue oral anticoagulation and planning for LifeVest for now CARMELINA PAZ November 14, 2020 08:25 MICHELLE CANSECO MD November 14, 2020 09:06
--- NOTE | 2020-11-14 08:42 | Progress Note ---
Subjective All Other Systems Reviewed All Other Systems Reviewed: Yes Objective Exam Vital Signs Vital Signs - First Documented 11/12/20 11/12/20 18:57 23:53 Temp 35.7 Pulse 99 Resp 18 B/P (MAP) 139/97 (111) Pulse Ox 100 O2 Delivery Room Air FiO2 21 Capillary Refill : Less Than 3 Seconds General Appearance: No Apparent Distress, WD/WN Eyes: Bilateral Eye Normal Inspection, Bilateral Eye PERRL, Bilateral Eye EOMI HEENT: PERRL/EOMI, Normal ENT Inspection, Pharynx Normal Neck: Full Range of Motion, Supple Respiratory: Chest Non Tender, Lungs Clear, Normal Breath Sounds, No Accessory Muscle Use, No Respiratory Distress Cardiovascular: Regular Rate, Rhythm, Normal Peripheral Pulses Gastrointestinal: Normal Bowel Sounds, No Organomegaly, No Pulsatile Mass, Non Tender, Soft Rectal: Deferred Back: Normal Inspection, No Vertebral Tenderness Extremity: Normal Capillary Refill, Normal Range of Motion, Non Tender, No Calf Tenderness, No Pedal Edema Neurologic/Psychiatric: Alert, Oriented x3, Normal Mood/Affect, senior grants officer II-XII Norm as Tested, Other (SOME WORD FINDING DIFFICULTY, NO MOTOR DEFICIT ON EXAM) Skin: Warm/Dry (EXCEPT AT ANKLES, FEET ARE COOL TO TOUCH) Results Lab Laboratory Tests 11/13/20 10:49: Glucometer 257H 11/13/20 16:42: Glucometer 258H 11/13/20 20:34: Glucometer 283H 11/14/20 02:41: White Blood Count 5.9, Red Blood Count 5.38, Hemoglobin 16.1, Hematocrit 47, Mean Corpuscular Volume 88, Mean Corpuscular Hemoglobin 30, Mean Corpuscular Hemoglobin Concent 34, Red Cell Distribution Width 13.6, Platelet Count 131, Mean Platelet Volume 12.8H, Percent Immature Platelet Fraction 15.4H, Sodium Level 135, Potassium Level 3.7, Chloride Level 96L, Carbon Dioxide Level 30, Anion Gap 9, Blood Urea Nitrogen 28H, Creatinine 1.63H, Estimat Glomerular Filtration Rate 43, BUN/Creatinine Ratio 17, Glucose Level 298H, Calcium Level 8.8 Assessment/Plan Assessment/Plan Admission Dx CORONARY VASCULAR ACCIDENT - ACUTE ON LEFT WITH SUBACUTE FEATURES ON THE RIGHT MIDDLE CEREBRAL ARTERY ON LEFT WITH CORTICAL ENHANCEMENT ON THE RIGHT TYPE II MYOCARDIAL INFARCTION CORONARY ARTERY DISEASE CHF OBSTRUCTIVE SLEEP APNEA POLYCYTHEMIA REMOTE HX OF HEAD TRAUMA WITH SKULL FRACTURE OF OCCIPITAL BONE AND SUBDURAL AND SUBARACHNOID BLEED IN 10/2016 DIABETES MELLITUS HTN HYPERLIPIDEMIA BPH Admission Dx CORONARY VASCULAR ACCIDENT - ACUTE ON LEFT WITH SUBACUTE FEATURES ON THE RIGHT MIDDLE CEREBRAL ARTERY ON LEFT WITH CORTICAL ENHANCEMENT ON THE RIGHT TYPE II MYOCARDIAL INFARCTION CORONARY ARTERY DISEASE CHF OBSTRUCTIVE SLEEP APNEA POLYCYTHEMIA REMOTE HX OF HEAD TRAUMA WITH SKULL FRACTURE OF OCCIPITAL BONE AND SUBDURAL AND SUBARACHNOID BLEED IN 10/2016 DIABETES MELLITUS HTN HYPERLIPIDEMIA BPH Clinical Quality Measures Admission Status Admission Dx CORONARY VASCULAR ACCIDENT - ACUTE ON LEFT WITH SUBACUTE FEATURES ON THE RIGHT MIDDLE CEREBRAL ARTERY ON LEFT WITH CORTICAL ENHANCEMENT ON THE RIGHT TYPE II MYOCARDIAL INFARCTION CORONARY ARTERY DISEASE CHF OBSTRUCTIVE SLEEP APNEA POLYCYTHEMIA REMOTE HX OF HEAD TRAUMA WITH SKULL FRACTURE OF OCCIPITAL BONE AND SUBDURAL AND SUBARACHNOID BLEED IN 10/2016 DIABETES MELLITUS HTN HYPERLIPIDEMIA BPH MYKEL MAHARAJ MD November 14, 2020 08:42
--- NOTE | 2020-11-14 08:51 | ST Cognitive Linguistic Eval ---
Speech Evaluation-General Medical Diagnosis CVA Onset Date: November 13, 2020 Therapy Diagnosis Therapy Diagnosis: Expressive Aphasia Precautions Precautions/Isolations: Fall Prevention, Standard Precautions Referral Referring Physician: Dr. Carrillo Medical History Pertinent Medical History: DM, HTN Reviewed History: Yes Social History Current Living Status: Spouse Speech PLF-Current Status Prior Level of Function Patient lives at home with his where he was independent for his daily needs. Subjective Patient was pleasant and cooperative with the speech evaluation. Language Eval: Auditory Comprehends Simple Yes/No Ques: Functional Indent/Objects Multiple Becker: Functional Ident/Pics in Multiple Becker: Functional Follows 1-Step Commands: Functional Follows Complex Directions: Functional Follows General Conversations: Functional Language Eval: Verbal Language Completes Spontaneous Greeting: Functional Produces Auto, Serial Info: Functional Imitates Simple Words/Phrases: Functional Word Finding: Mild Requests Basic Needs: Functional States Basic Personal Info: Mild Expresses Complex Ideas: Functional Objective Cognitive Domain Attention: WNL Memory: WNL Problem Solving: Functional Executive Functions: WNL Visuospatial Skills: WNL Composite Severity Rating: WNL Objective Formal/Standardized Tests Sections of the SLUMS, informal speech tasks, patient and spouse interview, chart review Results Patient exhibits a mild expressive aphasia Oral Motor/Speech Production Within Normal Limits Impression The patient is a pleasant 60 y/o male who was admitted to the ICU due to CVA. Patient's speech was noted to be garbled with difficulty saying the correct words. (per patient's ) The patient was evaluated at bedside this morning. Patient was noted to have good automatic speech for conversation and completing q/a related to his current situation. The patient exhibited two episodes of jargon speech intercepted in normal conversational speech. Patient will receive skilled ST services for improving expressive language for effective communication. Speech Short Term Goals Short Term Goals Short Term Goals 1) Patient will complete expressive language tasks with 90% or greater given minimal cuing. 2) Patient will complete expression of generative naming tasks with 90% or greater given minimal cuing. Speech Assisted Goals Office Messenger Helper Goals Patient will improve expressive language in order to effectively communicate. Speech-Plan Patient/Family Goals Patient/Family Goals: Patient plans on returning to his home where he lives with his . Treatment Plan Speech Therapy Treatment Plan: Continue Plan of Care Treatment Duration: November 22, 2020 Frequency: 4 times per week (Patient will receive skilled ST 4-5x per week) Estimated Hrs Per Day: .25 hour per day Rehab Potential: Good Barriers to Learning: Patient's expressive language, however does appear to be resolving Pt/Family Agrees to Plan: Yes Safety Risks/Education Teaching Recipient: Patient, Significant Other Teaching Methods: Discussion Response to Teaching: Verbalize Understanding Education Topics Provided: Communication of wants/needs Time Speech Therapy Time In: 08:00 Speech Therapy Time Out: 08:20 Total Billed Time: 20 Billed Treatment Time 1, SALLIE CHIU [address] ST November 14, 2020 08:51
--- NOTE | 2020-11-14 11:43 | Physical Therapy Evaluation ---
PT Evaluation-General Medical Diagnosis Admission Date November 12, 2020 at 20:59 Medical Diagnosis: AMS/elevated troponin/acute kidney injury Onset Date: November 13, 2020 Therapy Diagnosis Therapy Diagnosis: debility Height/Weight Height (Feet): 5 Height (Inches): 8.00 Weight (Pounds): 237 Weight (Ounces): 0.0 Precautions Precautions/Isolations: Fall Prevention, Standard Precautions Referral Physician: Lorena Reason for Referral: Evaluation/Treatment Medical History Pertinent Medical History: CAD, CVA, DM, Heart Failure, HTN, TBI Current History ER secondary to AMS, lethargy, difficulty with speech Reviewed History: Yes Social History Home: Single Level Current Living Status: Spouse Entry Into Home: Stairs With Railing PT Steps Into Home: 2 Prior Prior Level of Function SCALE: Activities may be completed with or without assistive devices. 6-Fqumxwwrgi-cmtynbx completes the activity by him/herself with no assistance from a helper. 5-Set-up or Clean-up Assistance-helper sets up or cleans up; patient completes activity. Casanova assists only prior to or following the activity. 4-Supervision or Touching Assistance-helper provides verbal cues and/or touching/steadying and/or contact guard assistance as patient completes activity. Assistance may be provided throughout the activity or intermittently. 3-Partial/Moderate Assistance-helper does LESS THAN HALF the effort. Casanova lifts, holds or supports trunk or limbs, but provides less than half the effort. 2-Substantial/Maximal Assistance-helper does MORE THAN HALF the effort. Casanova lifts or holds trunk or limbs and provides more than half the effort. 0-Xigwmifnl-qsqhax does ALL the effort. Patient does none of the effort to complete the activity. Or, the assistance of 2 or more helpers is required for the patient to complete the activity. If activity was not attempted, code reason: 7-Patient Refused. 9-Not Applicable-not attempted and the patient did not perform the activity before the current illness, exacerbation or injury. 10-Not Attempted due to Environmental Limitations-(lack of equipment, weather restraints, etc.). 88-Not Attempted due to Medical Conditions or Safety Concerns. Bed Mobility: 6 Transfers (B,C,W/C): 6 Gait: 6 Stairs: 6 Indoor Mobility (Ambulation): Independent Stairs: Independent Prior Devices Use: None PT Evaluation-Current Subjective Patient agrees to PT. Objective Patient Orientation: Normal For Age ROM/Strength ROM Lower Extremities bilateral LE WFL Strength Lower Extremities 5/5 grossly bilateral LE Integumentary/Posture Integumentary refer to nursing notes Bowel Incontinence: No Bladder Incontinence: No Posture WFL Neuromuscular (Tone, Coordination, Reflexes) grossly intact Sensory Vision: Functional Hearing: Functional Transfers Roll Left to Right (QC): 6 Sit to Lying (QC): 6 Lying to Sitting/Side of Bed(Q: 6 Sit to Stand (QC): 6 Chair/Kxm-mf-Adotn Xfer(QC): 6 Gait Does the Patient Walk?: Yes Mode of Locomotion: Walk Anticipated Mode of Locomotion: Walk Walk 10 feet (QC): 6 Walk 50 ft with 2 Turns(QC): 6 Walk 150 ft (QC): 6 Gait Assistive Device: None Comments/Gait Description safe and functional with no deviation Balance Sitting Static: Normal Sitting Dynamic: Normal Standing Static: Normal Standing Dynamic: Normal Picking up an Object (QC): 6 Assessment/Needs 60 y.o. male, is currently at [facility] with all gross motor skills and does not require skilled therapy intervention. Rehab Potential: Fair PT Plan Treatment/Plan Treatment Plan: Discontinue PT, goals met Treatment Duration: November 14, 2020 Frequency: 1 time per week Estimated Hrs Per Day: .25 hour per day Patient and/or Family Agrees t: Yes Discharge Recommendations Therapy Discharge Recommendati: Home & Family Time/GCodes Time In: 1101 Time Out: 1112 Total Billed Treatment Time: 11 Total Billed Treatment 1 visit EVMod 11 min ELEONORA RM PT November 14, 2020 11:43
[2020-11-15 03:44] VITALS: BP 145/93
[2020-11-15] MEDS: CATHETER FLUSH 10 ML SYR IV SCH (05:13)
[2020-11-15] MEDS: inSUlin ASPART (NovoLOG) 1 UNIT/0.01 ML (CHARGE PER UNIT) SC SCH ×2 (05:51→10:45)
[2020-11-15] MEDS ORDERED: LEVOTHYROXINE 25 MCG (LEVOTHROID) TAB PO SCH (06:30)
[2020-11-15] MEDS ORDERED: LIDOCAINE 2% VISCOUS 15 ML UDC PO ONE (07:00)
--- NOTE | 2020-11-15 07:09 | Cardiology Progress Note ---
Subjective Date Seen by Provider: November 15, 2020 Time Seen by Provider: 07:07 Subjective/Events-last exam Patient is laying down in bed, feeling better. No new complaint. Denied any chest pain. Still having slight slurred speech Review of Systems General: No Chills, No Night Sweats, No Fatigue, No Malaise, No Appetite, No Other HEENT: No Head Aches, No Visual Changes, No Eye Pain, No Ear Pain, No Dysphasia, No Sinus Congestion, No Post Nasal Drip, No Sore Throat, No Other Pulmonary: No Dyspnea, No Cough, No Pleuritic Chest Pain, No Other Cardiovascular: No: Chest Pain, Palpitations, Orthopnea, Paroxysmal Noc. Dyspnea, Edema, Lt Headedness, Other Objective-Cardiology Exam Last Set of Vital Signs Vital Signs 11/12/20 11/15/20 23:53 03:44 Temp 36.7 Pulse 86 Resp 16 B/P (MAP) 145/93 (110) Pulse Ox 96 O2 Delivery Room Air FiO2 21 Capillary Refill : Less Than 3 Seconds I&O Intake and Output 11/15/20 00:00 Intake Total 1980 ml Balance 1980 ml Intake Oral 1980 ml # Voids 10 General: Alert, Oriented X3, Cooperative HEENT: Atraumatic, PERRLA Neck: Supple, No JVD, No Thyromegaly Lungs: Clear to Auscultation, Normal Air Movement Heart: Regular Rate, Normal S1, Normal S2, No Murmurs Abdomen: Normal Bowel Sounds, Soft, No Tenderness, No Hepatosplenomegaly, No Masses Extremities: No Edema, Other (clubbing of fingers and toes) Skin: No Rashes, No Significant Lesion Neuro: Other (slight aphasia) Psych/Mental Status: Mental Status NL, Mood NL Results Lab A/P-Cardiology Admission Diagnosis CVA Elevated troponin CAD CHF Assessment/Plan Acute/subacute CVA- MRI done this morning showing acute left parietal lobe infarct, middle cerebral artery territory, findings suggestive of subacute infarct in the high right posterior parietal lobe which shows some mild cortical enhancement. Follow-up MRI brain in 3 months is recommended to show clearing and/or stability. No acute intracranial hemorrhage is detected. Maintained on ASA and Plavix. Carotid US done 11/13/20 showing nonobstructive disease bilaterally. S/p LINq implantation for further monitoring for underlying arrhythmia. Planning for HESHAM today Mildly elevated troponin, likely type II NE, trending down. EKG showing no acute ST changes. Stress test done January 2020 showing patchy uptake with mild decreased uptake involving the inferior wall with mild reversibility, no significant ischemia or infarction noted on SPECT images. Dilated left ventricle with diffuse hypokinesia, EF 32 percent Coronary artery disease- history of PTCA and stents to LAD using Promus 3 x 24 mm drug-eluting stent on 07/26/2012. Had abnormal stress test and underwent cardiac catheterization with a staged intervention secondary to his recent head trauma and the need to limit aggressive anticoagulation. Left heart catheterization carried out on February 05, 2017 revealed severe stenosis at the mid circumflex artery and distal right coronary artery. Underwent bare metal stent 3.018 mm to the circumflex artery. Patient was brought back for staged intervention and underwent cardiac catheterization on February 06, 2017 with stenting to the RCA using 3.0 x 15 mm bare-metal stent. Cardiac catheterization with Dr. Yanes on November 17, 2017 showed dilated cardiomyopathy with ejection fraction 35 percent, 50 percent in-stent restenosis in the first diagonal and obtuse marginal branch otherwise normal coronaries with normal hemodynamic data. Congestive heart failure, 2D Echo March 2020 revealed EF 30-35% and moderate diffuse hypokinesis. Mild to mod MV, PA 25-30mmHg. 2D Echo done yesterday showing EF 25-30%. Started on Entresto and Coreg. 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 Currently more agreeable on ICD, I am planning LifeVest, possible ICD in about a month AISLINN, has been noncompliant with his CPAP likely resulting in nocturnal hypoxemia. Discussed importance of compliance Polycythemia, unknown etiology, management per Dr. Carrillo Palpitations, history of PAC's, maintained on Toprol XL History of head trauma at work resulted in frontal skull fracture and right occipital bone fracture with mild subdural bleedd and subarachnoid hemorrhage October 2016, recovered fully. Hypertension, resistant to multiple medications. Renal arterial duplex done February 2018 negative for renal arterial stenosis. Restart home blood pressu re medications and continue to monitor. Hyperlipidemia, I will evaluate lipid profile Diabetes mellitus, followed and managed by primary care physician BPH Osteoarthritis History of right pulmonary nodule/mediastinal lymphadenopathy-previously follow ed by via [facility] in 2012, no recent work up. Tobaccoism, chewing tobacco. Encouraged to avoiding tobacco product MICHELLE CANSECO MD November 15, 2020 07:09
[2020-11-15] MEDS ORDERED: KETAMINE/NaCl 50 MG/5 ML SYRINGE (ED ONLY) ONE (07:27)
[2020-11-15] MEDS ORDERED: proPOfol 200 MG/20 ML (DIPRIVAN) VIAL IV ONE (07:27)
[2020-11-15] MEDS ORDERED: MIDAZOLAM 2 MG/2 ML (VERSED) VIAL ONE ×2 (07:27)
[2020-11-15] MEDS ORDERED: NS IV 500 ML 500 ML ONE (07:47)
--- NOTE | 2020-11-15 07:49 | Conscious Sedation/ASA ---
Conscious Sedation Pre-Proced Time 07:49 ASA Score 3 For ASA 3 and 4: Consider anesthesia and medical clearance. Also, for patients with a history of failed moderate sedation consider anesthesia. Airway Lungs Heart ASA score ASA 1: a normal healthy patient ASA 2: a patient with a mild systemic disease (mid diabetes, controlled hypertension, obesity x ASA 3: a patient with a severe systemic disease that limits activity (angina, COPD, prior Myocardial infarction) ASA 4: a patient with an incapacitating disease that is a constant threat to life (CHF, renal failure) ASA 5: a moribund patient not expected to survive 24 hrs. (ruptured aneurysm) ASA 6: a declared brain- patient whose organs are being harvested. For emergent operations, add the letter E after the classification Mallampati Classification Grade 3 Sedation Plan Analgesia, Amnesia, Plan communicated to team members, Discussed options with patient/fam, Discussed risks with patient/fam The patient is an appropriate candidate to undergo the planned procedure, sedation, and anesthesia. The patient immediately re-assessed prior to indication. MICHELLE CANSECO MD November 15, 2020 07:49
[2020-11-15] MEDS ORDERED: MIDAZOLAM 5 MG/5 ML (VERSED) VIAL ONE (08:03)
[2020-11-15] MEDS ORDERED: fentaNYL INJ 100 MCG/2 ML AMP ONE (08:03)
[2020-11-15 08:05] VITALS: BP 140/93
[2020-11-15] MEDS: TAMSULOSIN 0.4 MG (FLOMAX) CAP PO SCH (09:57)
[2020-11-15] MEDS: PANTOPRAZOLE 40 MG (PROTONIX) TAB PO SCH (09:57)
[2020-11-15] MEDS: CLOPIDOGREL 75 MG (PLAVIX) TABLET PO SCH (09:57)
[2020-11-15] MEDS: ASPIRIN 81 MG CHEW (CHILDREN'S ASA) PO SCH (09:57)
[2020-11-15] MEDS: SACUBITRIL/VALSARTAN 24/26 MG (ENTRESTO) TABLET PO SCH (09:57)
--- NOTE | 2020-11-15 10:44 | Discharge Summary ---
Diagnosis/Chief Complaint Date of Admission November 12, 2020 at 20:59 Date of Discharge Reason Hospital Visit ANGIE IS A 60 Y/O MALE WHO IS A PATIENT IN MY PRACTICE. 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 HOWEVER HE HAS MISSED SEVERAL APPOINTMENTS RECENTLY. HE PRESENTED TO THE HOSPITAL WITH AN EPISODE OF CONFUSION WITH WORD FINDING DIFFICULTY. APPARENTLY ON WEDNESDAY HE WAS "ACTING UNUSUAL" WITH SIGNIFICANT PHYSICAL ACTIVITY AND WANDERING IN THE MIDDLE OF THE NIGHT, PASSING EXCESSIVE FLATUS, AND THEN SLEEPING FOR A PROLONGED PERIOD OF TIME. HIS THOUGHT THAT HE SEEMED A LITTLE BIT BETTER ON WEDNESDAY, AND THEN HE WAS HAVING MORE TROUBLE AGAIN ON WEDNESDAY SO SHE REPORTS THAT AFTER WORK ON WEDNESDAY, SHE CAME HOME AND THEY DISCUSSED HIS SYMPTOMS AND THEY FINALLY DECIDED TO BRING HIM INTO THE HOSPITAL. THIS MORNING MR. ROCHA AND HIS REPORT THAT HE IS STILL HAVING SOME WORD- FINDING TROUBLE, BUT IT SEEMS TO BE BETTER THAN ON ADMISSION. HE ADMITS TO NOT USING HIS CPAP, HAS NOT BEEN CHECKING HIS FSBS REGULARLY. Discharge Summary Discharge Physical Examination Allergies: Coded Allergies: No Known Drug Allergies (Unverified , 01/30/10) Vitals & I&Os Vital Signs Date Time Temp Pulse Resp B/P (MAP) Pulse Ox O2 Delivery O2 Flow Rate FiO2 11/15/20 09:07 36.2 11/15/20 08:05 77 15 140/93 (109) 96 Room Air 11/12/20 23:53 21 Hospital Course Pending Labs Laboratory Tests 11/15/20 05:51: Glucometer 152 Discharge Instructions to patient/family Please see electronic discharge instructions given to patient. Discharge Medications Reviewed and agree with Discharge Medication list on patient's Discharge Instruction sheet MYKEL MAHARAJ MD November 15, 2020 10:44
--- NOTE | 2020-11-15 11:04 | Discharge Inst-Simple/Standard ---
Discharge Inst-Standard Reconcile Patient Problems Problems Reviewed?: Yes Discharge Medications New, Converted or Re-Newed RX: Transmitted to Pharmacy Patient Instructions/Follow Up Plan of Care/Instructions/FU: 1 wk galen 2 wk cardiology Activity as Tolerated: Yes Discharge Diet: ADA Diet, Low Fat/Low Cholesterol Return to The Hospital For: any concern for worsening symptoms, recurrent stroke features, weakness, abnormal speech, confusion, chest pain, shortness of breath or other life threatening illness or injury MYKEL MAHARAJ MD November 15, 2020 11:04
[2020-11-15 11:28] VITALS: BP 109/70
--- NOTE | 2020-11-15 15:11 | Anesthesia-General Post-Op ---
MAC Patient Condition Mental Status/LOC: Same as Preop Cardiovascular: Satisfactory Nausea/Vomiting: Absent Respiratory: Satisfactory Pain: Controlled Complications: Absent Post Op Complications Complications None Follow Up Care/Instructions Patient Instructions None needed. Anesthesiology Discharge Order Discharge Order Patient was seen this morning after the procedure and he was doing well, no complaints, stable vital signs, no apparent adverse anesthesia problems. MYAH ANGULO DO November 15, 2020 15:11
== END 2020-11-15 12:06 | disposition home or self-care (01) | DRG 40 ==
LOC: EDUNIT# 18:53 → ER 18:57 → ICU 20:59
PROVIDERS: ADMIT Family Medicine; ATTEND Family Medicine
PROC: 0JH632Z Insertion of Monitoring Device into Chest Subcutaneous Tissue and Fascia, Percutaneous Approach (ICD-10-PCS; principal; 2020-11-13)
DX: I63.512 Cerebral infarction due to unspecified occlusion or stenosis of left middle cerebral artery (principal); I21.A1 Myocardial infarction type 2; N17.9 Acute kidney failure, unspecified; I42.9 Cardiomyopathy, unspecified; I50.32 Chronic diastolic (congestive) heart failure; I13.0 Hypertensive heart and chronic kidney disease with heart failure and stage 1 through stage 4 chronic kidney disease, or unspecified chronic kidney disease; R47.01 Aphasia; I25.10 Atherosclerotic heart disease of native coronary artery without angina pectoris; E78.00 Pure hypercholesterolemia, unspecified; K21.9 Gastro-esophageal reflux disease without esophagitis; N40.0 Benign prostatic hyperplasia without lower urinary tract symptoms; M19.90 Unspecified osteoarthritis, unspecified site; G89.29 Other chronic pain; M54.9 Dorsalgia, unspecified; E03.9 Hypothyroidism, unspecified; H90.5 Unspecified sensorineural hearing loss; F17.200 Nicotine dependence, unspecified, uncomplicated; E11.22 Type 2 diabetes mellitus with diabetic chronic kidney disease; N18.32 Chronic kidney disease, stage 3b; G47.33 Obstructive sleep apnea (adult) (pediatric); D75.1 Secondary polycythemia; E11.65 Type 2 diabetes mellitus with hyperglycemia; Z91.14 Patient's other noncompliance with medication regimen; Z87.820 Personal history of traumatic brain injury; Z79.82 Long term (current) use of aspirin; Z79.4 Long term (current) use of insulin; Z79.899 Other long term (current) drug therapy; Z95.5 Presence of coronary angioplasty implant and graft
CPT/HCPCS: 33285; 36415; 70450; 70553; 71045; 80048; 80053; 80061; 82550; 82553; 82947; 83036; 84484; 85025; 85027; 93005; 93306; 93312; 93320; 93325; 93880

== ENCOUNTER → 2020-12-23 | Outpatient (CLI) | payer OTHER ==
[~2020-12-23] MED LIST changes: +AMIT50TA3 PO; +ASPI-1238 PO; +ATOR40TA70 PO; +CARV25TA PO; +LEVO25TA5 PO; +LIRA0.6P3 SC; +MELA5TAB14 PO; +METO5TAB6 PO; +OMEG-179 PO; +POTA20TA15 PO; +SACU1TAB7 PO; +TMSL.4C PO
== END ==
LOC: CARD 15:00
PROVIDERS: ATTEND Internal Medicine Cardiovascular Disease
DX: I11.9 Hypertensive heart disease without heart failure (principal); I34.0 Nonrheumatic mitral (valve) insufficiency; I25.10 Atherosclerotic heart disease of native coronary artery without angina pectoris
CPT/HCPCS: 93306

== ENCOUNTER 2020-12-27 14:54 | Outpatient (RCR) | payer OTHER | END 2020-12-27 15:30 | disposition home or self-care (01) | PROVIDERS: ATTEND Family Medicine | DX: I63.9 Cerebral infarction, unspecified (principal) ==

== ENCOUNTER → 2021-01-01 | Outpatient (CLI) | payer OTHER | LOC: LABNPT 08:35 | PROVIDERS: ATTEND Internal Medicine Cardiovascular Disease | DX: Z01.89 Encounter for other specified special examinations (principal); Z20.822 Contact with and (suspected) exposure to COVID-19 | CPT/HCPCS: 87635 ==

== ENCOUNTER 2021-01-03 11:00 | Day surgery (SDC) | payer OTHER ==
[2021-01-03] VITALS (16 sets, daily range): BP systolic 128–158; BP diastolic 81–117
[~2021-01-03] VITALS: Ht 172 cm; Wt 96.0 kg
[2021-01-03 10:10] LABS: HEMATOCRIT 50 % (40-54); HEMOGLOBIN 16.7 g/dL (13.3-17.7); MEAN CORPUSCULAR HEMOGLOBIN 31 pg (25-34); MEAN CORPUSCULAR HGB CONC 34 g/dL (32-36); MEAN CORPUSCULAR VOLUME 92 fL (80-99); MEAN PLATELET VOLUME 12.3 fL (9.0-12.2); PLATELET COUNT 183 10^3/uL (130-400); WHITE BLOOD COUNT 6.7 10^3/uL (4.3-11.0)
--- NOTE | 2021-01-03 10:14 | Diagnostic Imaging Report ---
INDICATION: Congestive heart failure. Comparison made with prior examination of 11/12/2020. FINDINGS: The heart size, mediastinal configuration, and pulmonary vascularity are within normal limits. There is no pleural effusion, pneumothorax, or pneumonia. The osseous structures are unremarkable. IMPRESSION: No acute cardiopulmonary abnormality. Dictated by: Dictated on workstation # [id number]
[2021-01-03 10:23] LABS: ALBUMIN 3.9 GM/DL (3.2-4.5); POTASSIUM 3.7 MMOL/L (3.6-5.0)
[2021-01-03 10:25] LABS: CALCIUM 9.7 MG/DL (8.5-10.1); PROTHROMBIN TIME PATIENT 13.4 SEC (12.2-14.7)
[2021-01-03 10:28] LABS: BILIRUBIN,TOTAL 0.8 MG/DL (0.1-1.0)
[2021-01-03 10:29] LABS: CREATININE SERUM 1.44 MG/DL (0.60-1.30)
[~2021-01-03 11:00] MED LIST changes: +NS IV 1000 ML 1,000 ML IV ONE; +NS IV 1000 ML 1,000 ML IV SCH; +ceFAZolin INJECTION 1,000 MG VIAL IV ONE
--- NOTE | 2021-01-03 12:23 | Conscious Sedation/ASA ---
Conscious Sedation Pre-Proced Time 12:23 ASA Score 3 For ASA 3 and 4: Consider anesthesia and medical clearance. Also, for patients with a history of failed moderate sedation consider anesthesia. Airway Lungs Heart ASA score ASA 1: a normal healthy patient ASA 2: a patient with a mild systemic disease (mid diabetes, controlled hypertension, obesity x ASA 3: a patient with a severe systemic disease that limits activity (angina, COPD, prior Myocardial infarction) ASA 4: a patient with an incapacitating disease that is a constant threat to life (CHF, renal failure) ASA 5: a moribund patient not expected to survive 24 hrs. (ruptured aneurysm) ASA 6: a declared brain- patient whose organs are being harvested. For emergent operations, add the letter E after the classification Mallampati Classification Grade 3 Sedation Plan Analgesia, Amnesia, Plan communicated to team members, Discussed options with patient/fam, Discussed risks with patient/fam The patient is an appropriate candidate to undergo the planned procedure, sedation, and anesthesia. The patient immediately re-assessed prior to indication. MICHELLE CANSECO MD Jan 03, 2021 12:23 pm
[2021-01-03] MEDS ORDERED: NS IV 1000 ML 1,000 ML IV SCH (12:30)
[2021-01-03] MEDS ORDERED: PATIENT MAY USE OWN MEDS, ALL PO SCH (12:30)
--- NOTE | 2021-01-03 12:37 | ICD Implantation ---
Single Chamber ICD Implant DATE OF SERVICE: 60 male DUAL CHAMBER ICD IMPLANTATION PRECISION INSTRUMENT AND TOOL MAKER: Michelle Peraza INDICATION: Primary prevention for congestive heart failure PREOPERATIVE DIAGNOSES: Congestive heart failure POSTOPERATIVE DIAGNOSES: Congestive heart failure HISTORY: ICD implantation is recommended. PROCEDURE PERFORMED: 1. Single-chamber ICD implantation. 2. DFT testing COMPLICATIONS: None. ESTIMATED BLOOD LOSS: 20 mL. SPECIMENS: None. ANESTHESIA: Conscious sedation. ORAL ANTICOAGULATION: None. FLUOROSCOPY TIME: FLUOROSCOPY DOSE: CONTRAST DOSE: PROCEDURE DETAILS: 60 Years old gentleman with history of congestive heart failure, has been refusing LifeVest, maximized on medical therapy. No significant improvement in LV function, scheduled for dual-chamber ICD implant After explaining the procedure to the patient all questions were answered. Patient was placed on the cardiac catheterization laboratory, skin was prepped in the sterile fashion, using modified Seldinger technique to access to the left subclavian vein was made then wire was left in the vein, skin incision was made and skin pocket was made, sheath were placed in the vein then ventricular lead was advanced to the right ventricular apex, secured with good sensing and capture activity. Atrial lead was placed at the right atrial appendage and secured with good sensing and capture activity. Dual-chamber ICD device was attached to the lead and placed in a Tyrex patch placed in the pocket, pocket w as closed on 2 layers of sutures, additional pressure was held due to continuous oozing of blood. No complication noted. DFT testing was done after calling anesthesia, induction was with T shock at 310 ms, had nonsustained V. tach but did not receive therapy due to the termination of the V. tach on its own. Second attempt was made then the T shock was brought down to 290 ms at 1 J after rapid pacing it was successful in creating ventricular tachycardia and fibrillation, patient received a single shock and it was successful in terminating ventricular fibrillation. DEVICE INFORMATION: [place] XT DR MRI [id number] INTRAOPERATIVE DEVICE TESTING: Good sensing and capture activity DEVICE INTERROGATION IMMEDIATELY POSTOP: Right atrial lead threshold 0.4 ms at 1.5 V, impedance 513, P wave 2.3 mV RV lead threshold 0.4 ms as 0.5 V, impedance 494, R wave 15.5 mV DFT testing T shock at 290 ms with 1 J was successful in inducing V. tach and V. fib, therapy was successful in terminating at impedance 37 charge time 5.53. PLAN: The patient will be observed for 23 hours. We will continue with two more dosages of IV antibiotics. We will check a chest x-ray and interrogate the device in the morning. An EKG will be done as well. If everything checks out, the patient will be discharged tomorrow. CONCLUSION: Successful dual-chamber ICD implantation with no complication Successful DFT testing FINAL DIAGNOSIS: Congestive heart failure, chronic compensated left ventricular systolic dysfunction, nonischemic cardiomyopathy Frequent PVCs Hypertension CVA MICHELLE PERAZA MD Jan 03, 2021 12:37 pm
--- NOTE | 2021-01-03 13:00 | Anesthesia-General Post-Op ---
MAC Patient Condition Mental Status/LOC: Same as Preop Cardiovascular: Satisfactory Nausea/Vomiting: Absent Respiratory: Satisfactory Pain: Controlled Complications: Absent Post Op Complications Complications None Follow Up Care/Instructions Patient Instructions None needed. Anesthesiology Discharge Order Discharge Order Patient is doing well, no complaints, stable vital signs, no apparent adverse anesthesia problems. No complications reported per nursing. ALIZE WALTERS CRNA Jan 03, 2021 13:00
--- NOTE | 2021-01-03 13:57 | Diagnostic Imaging Report ---
INDICATION: Pacemaker placement. TIME OF EXAM: 12:23 PM Correlation is made with prior chest earlier same day. Cardiac defibrillator has been placed with lead tips in region of right atrium and right ventricle. Heart is enlarged and lungs are clear. No infiltrates are seen. There is no pneumothorax. No effusion. IMPRESSION: Defibrillator placement. No pneumothorax is identified. Dictated by: Dictated on workstation # [id number]
[2021-01-03] MEDS ORDERED: METOLAZONE 5 MG (ZAROXOLYN) TAB PO PRN (15:45)
[2021-01-03] MEDS ORDERED: AMITRIPTYLINE 50 MG (ELAVIL) TAB PO PRN (15:45)
[2021-01-03] MEDS ORDERED: KCL 20 MEQ TAB (K-DUR) PO PRN ×2 (15:45→16:45)
[2021-01-03] MEDS ORDERED: NON-FORMULARY MEDICATION 1 EA EA (Melatonin 5 MG) PO PRN (15:45)
[2021-01-03] MEDS ORDERED: MELATONIN 10 MG TABLET PO PRN (16:45)
[2021-01-03] MEDS: ceFAZolin INJECTION 1,000 MG in WATER (STERILE) FOR INJECTION 10 ML IV SCH (17:40)
[2021-01-03] MEDS: oxyCODONE/APAP 5/325MG (PERCOCET 5) TABLET PO PRN ×2 (17:40→21:34)
[2021-01-03] MEDS ORDERED: [UNRECOGNIZED DRUG - OTHER] SQ SCH (21:00)
[2021-01-03] MEDS ORDERED: VICTOZA 18 MG/3 ML SC SCH (21:00)
[2021-01-03] MEDS: ENTRESTO PO SCH (21:00)
[2021-01-03] MEDS: CARVEDILOL 25 MG TABLET PO SCH (21:00)
[2021-01-03] MEDS ORDERED: NON-FORMULARY MEDICATION 1 EA EA (Carvedilol 25 MG) PO SCH (21:00)
[2021-01-04] VITALS: BP 134/98
[2021-01-04] MEDS: ceFAZolin INJECTION 1,000 MG in WATER (STERILE) FOR INJECTION 10 ML IV SCH (03:23)
[2021-01-04 04:00] VITALS: BP 121/88
[2021-01-04] MEDS ORDERED: LEVOTHYROXINE 25 MCG (LEVOTHROID) TAB PO SCH (06:30)
[2021-01-04] MEDS ORDERED: FUROSEMIDE 40 MG (LASIX) TAB PO SCH (07:00)
[2021-01-04 07:08] VITALS: BP 148/96
[2021-01-04] MEDS ORDERED: CEFU250T80 PO (08:36)
--- NOTE | 2021-01-04 08:36 | Discharge Inst-Post CATH ---
Discharge Inst-CATH/EP Problems Reviewed?: Yes Post Cardiac Cath/EP D/C Inst Follow Up/Plan Appointment with Dr Peraza in one week <b>CARDIAC CATH/EP PROCEDURE DISCHARGE INSTRUCTIONS</b> ACTIVITY * Go Home directly and rest. * Limit activity of the leg (or wrist if it was used) for 7 days including aerobics, swimming, jogging, bicycling, etc. * Restrict stair-climbing for 7 days if possible, if not, climb up with your non-cath leg, then bring together on the same step. * Avoid lifting, pushing, pulling or excessive movement of the affected extremity for 7 days. * Customary sexual activity may be resumed after 2 days-use caution not to use a position that strains or causes pain to the affected extremity. * No driving for 24 hours. * NO SMOKING. * Avoid straining for bowel movements for 7 days. * Gentle walking on level ground is allowed. * Returning to work will depend on the type of procedure and the results. Your doctor will discuss this with you. CALL YOUR DOCTOR FOR ANY OF THE FOLLOWING: *If bleeding from the puncture site occurs- Apply gentle pressure to site with clean cloth and call your doctor or EMS. * If a knot or lump forms under the skin, increases in size, or causes pain. * If bruising appears to be worsening or moving further down your leg instead of disappearing. * Temperature above 101 F. CARE OF YOUR GROIN INCISION; * Bruising or purple discoloration of the skin near the puncture site is common. * You may shower only, no bathtub bathing for 5 days. Be careful to avoid slipping as your leg may feel stiff. * If a closure device was used on your femoral artery, please see the attached guide regarding care of the device and your leg. * Leave dressing on FOR 24 hours. CARE OF YOUR WRIST INCISION; * Bruising or purple discoloration of the skin near the puncture site is common. * You may shower. * DO NOT submerge wrist. * Leave dressing on FOR 24 hours. MICHELLE PERAZA MD Jan 04, 2021 08:36
[2021-01-04] MEDS: ENTRESTO PO SCH (08:52)
[2021-01-04] MEDS: CARVEDILOL 25 MG TABLET PO SCH (08:53)
[2021-01-04] MEDS ORDERED: ASPIRIN 81 MG CHEW (CHILDREN'S ASA) PO SCH (09:00)
[2021-01-04] MEDS ORDERED: TAMSULOSIN 0.4 MG (FLOMAX) CAP PO SCH (09:00)
[2021-01-04] MEDS ORDERED: CLOPIDOGREL 75 MG (PLAVIX) TABLET PO SCH (09:00)
[2021-01-04] MEDS ORDERED: OMEGA 3 (FISH OIL) 1000 MG CAP PO SCH (09:00)
[2021-01-04] MEDS ORDERED: BASAGLAR U SQ SCH (09:00)
[2021-01-04] MEDS ORDERED: ASPIRIN E.C. 81 MG (ECOTRIN) TAB PO SCH (09:00)
--- NOTE | 2021-01-04 11:16 | Cardiology Progress Note ---
Subjective Date Seen by Provider: Jan 04, 2021 Time Seen by Provider: 11:15 Subjective/Events-last exam Patient was seen at bedside, sitting comfortably, site is healing well, some bruising on the chest Review of Systems General: No Chills, No Night Sweats, No Fatigue, No Malaise, No Appetite, No Other HEENT: No Head Aches, No Visual Changes, No Eye Pain, No Ear Pain, No Dyspha susana, No Sinus Congestion, No Post Nasal Drip, No Sore Throat, No Other Pulmonary: No Dyspnea, No Cough, No Pleuritic Chest Pain, No Other Cardiovascular: No: Chest Pain, Palpitations, Orthopnea, Paroxysmal Noc. D yspnea, Edema, Lt Headedness, Other Objective-Cardiology Exam Last Set of Vital Signs Vital Signs 01/04/21 01/04/21 07:08 08:30 Temp 36.7 Pulse 93 Resp 18 B/P (MAP) 148/96 (113) Pulse Ox 98 O2 Delivery Room Air I&O Intake and Output 01/04/21 00:00 Intake Total 965 ml Output Total 0 ml Balance 965 ml Intake Oral 965 ml Output Urine Total 0 ml # Voids 3 General: Alert, Oriented X3, Cooperative HEENT: Atraumatic, PERRLA Neck: Supple, No JVD, No Thyromegaly Lungs: Clear to Auscultation, Normal Air Movement Heart: Regular Rate, Normal S1, Normal S2, No Murmurs Abdomen: Normal Bowel Sounds, Soft, No Tenderness, No Hepatosplenomegaly, No Masses Extremities: No Clubbing, No Cyanosis, No Edema, Normal Pulses, No Tenderness/Swelling Skin: No Rashes, No Breakdown, No Significant Lesion Neuro: Normal Gait, Normal Speech, Strength at 5/5 X4 Ext, Normal Tone, Sensation Intact Psych/Mental Status: Mental Status NL, Mood NL A/P-Cardiology Admission Diagnosis Dual-chamber ICD implant Congestive heart failure Coronary artery disease Hypertension Assessment/Plan Dual-chamber ICD implant and DFT testing done on January 03, 2021, site is healing well. Interrogation showed good sensing and capture activity, planning to discharge and follow-up as an outpatient Congestive heart failure, chronic compensated left ventricular systolic dysfunction, ischemic cardiomyopathy, continue current medication Hypertension, monitor blood pressure Hyperlipidemia, monitor lipids I will arrange for follow-up in my office next week, educated in length about ICD, post implant care MICHELLE CANSECO MD Jan 04, 2021 11:16 am
[2021-01-06] MEDS ORDERED: LEVOTHYROXINE 25 MCG (LEVOTHROID) TAB PO SCH (06:30)
== END 2021-01-04 11:20 | disposition home or self-care (01) ==
LOC: CSD 13:09 → CATH 01-04 11:20
PROVIDERS: ATTEND Internal Medicine Cardiovascular Disease
DX: I50.22 Chronic systolic (congestive) heart failure (principal); I11.0 Hypertensive heart disease with heart failure; I42.8 Other cardiomyopathies; I49.3 Ventricular premature depolarization; I63.9 Cerebral infarction, unspecified; I25.10 Atherosclerotic heart disease of native coronary artery without angina pectoris; E78.5 Hyperlipidemia, unspecified; G47.33 Obstructive sleep apnea (adult) (pediatric); E11.9 Type 2 diabetes mellitus without complications; N40.0 Benign prostatic hyperplasia without lower urinary tract symptoms; M19.90 Unspecified osteoarthritis, unspecified site; K21.9 Gastro-esophageal reflux disease without esophagitis; E07.9 Disorder of thyroid, unspecified; F17.220 Nicotine dependence, chewing tobacco, uncomplicated; Z99.89 Dependence on other enabling machines and devices; Z79.82 Long term (current) use of aspirin; Z79.01 Long term (current) use of anticoagulants; Z79.899 Other long term (current) drug therapy; Z79.890 Hormone replacement therapy; Z83.3 Family history of diabetes mellitus
CPT/HCPCS: 33249; 71045; 80053; 80061; 85027; 85610; 85730; 87081; 93005; 93641; C1721; C1895; C1898; 36415

== ENCOUNTER → 2021-01-10 | Outpatient (CLI) | payer OTHER ==
[~2021-01-10] MED LIST changes: +CEFU250T80 PO; -NS IV 1000 ML 1,000 ML IV ONE; -NS IV 1000 ML 1,000 ML IV SCH; -ceFAZolin INJECTION 1,000 MG VIAL IV ONE
== END ==
LOC: SLEEP 08:23
PROVIDERS: ATTEND Family Medicine
DX: G47.33 Obstructive sleep apnea (adult) (pediatric) (principal); G47.10 Hypersomnia, unspecified; I10 Essential (primary) hypertension; I49.9 Cardiac arrhythmia, unspecified; I25.9 Chronic ischemic heart disease, unspecified; F39 Unspecified mood [affective] disorder; Z20.822 Contact with and (suspected) exposure to COVID-19; Z86.73 Personal history of transient ischemic attack (TIA), and cerebral infarction without residual deficits
CPT/HCPCS: 87635

== ENCOUNTER → 2021-01-27 | Outpatient (CLI) | payer OTHER ==
--- NOTE | 2021-01-27 16:43 | Diagnostic Imaging Report ---
Indication: Congestive heart failure abnormal function of heart defibrillator 2 views of the chest shows normal heart size and vascularity. Pacemaker is present with leads in the right atrium and right ventricle. The lungs are clear. There is no effusion or pneumothorax. There is no bony abnormality. IMPRESSION: No acute abnormality is seen. Dictated by: Dictated on workstation # [id number]
== END ==
LOC: RAD 16:19
PROVIDERS: ATTEND Physician Assistant
DX: I50.9 Heart failure, unspecified (principal)
CPT/HCPCS: 71046

== ENCOUNTER 2021-02-05 15:28 | Observation (INO) | payer OTHER ==
[~2021-02-05] VITALS: Ht 172.7 cm; Wt 98.4 kg
[2021-02-05] VITALS (11 sets, daily range): BP systolic 136–153; BP diastolic 93–108
[2021-02-05 12:42] LABS: HEMOGLOBIN 15.2 g/dL (13.3-17.7); MEAN PLATELET VOLUME 12.6 fL (9.0-12.2); WHITE BLOOD COUNT 7.8 10^3/uL (4.3-11.0)
--- NOTE | 2021-02-05 12:46 | Diagnostic Imaging Report ---
INDICATION: Preop for ICD lead adjustment. TIME OF EXAM: 12:29 PM Correlation is made with prior chest from 01/03/2021. Heart size is stable. Cardiac defibrillator is in place. Lungs are clear. No infiltrates are seen. There is no effusion or pneumothorax. IMPRESSION: No acute cardiopulmonary process is detected. Dictated by: Dictated on workstation # [id number]
[2021-02-05 12:52] LABS: INR 1.1 (0.8-1.4); PROTHROMBIN TIME PATIENT 14.8 SEC (12.2-14.7)
[2021-02-05 12:53] LABS: ALBUMIN 3.6 GM/DL (3.2-4.5); POTASSIUM 4.3 MMOL/L (3.6-5.0)
[2021-02-05 12:54] LABS: CALCIUM 9.2 MG/DL (8.5-10.1)
[2021-02-05 12:55] LABS: TOTAL PROTEIN 6.5 GM/DL (6.4-8.2)
[2021-02-05 12:57] LABS: BILIRUBIN,TOTAL 1.1 MG/DL (0.1-1.0)
[2021-02-05 12:59] LABS: CREATININE SERUM 1.27 MG/DL (0.60-1.30)
[~2021-02-05 15:28] MED LIST changes: +ERGO1250 PO; +HEParin (CATH LAB) 1,000 ML IV ONE; +LIDOCAINE 1% INJ 20 ML 20 ML VIAL ONE; +MIDAZOLAM 5 MG/5 ML (VERSED) VIAL ONE; +NS IV 1000 ML 1,000 ML IV ONE; +NS IV 1000 ML 1,000 ML ONE; +OMEG-160 PO; +ceFAZolin INJECTION 1,000 MG ONE; +ceFAZolin INJECTION 1,000 MG VIAL IV ONE; +fentaNYL INJ 100 MCG/2 ML AMP ONE
[2021-02-05] MEDS ORDERED: proPOfol 200 MG/20 ML (DIPRIVAN) VIAL IV ONE (16:00)
[2021-02-05] MEDS ORDERED: MIDAZOLAM 5 MG/5 ML (VERSED) VIAL ONE (16:09)
[2021-02-05] MEDS ORDERED: fentaNYL INJ 100 MCG/2 ML AMP ONE (16:15)
[2021-02-05] MEDS ORDERED: NS IV 1000 ML 1,000 ML ONE (16:29)
--- NOTE | 2021-02-05 16:52 | Anesthesia-General Post-Op ---
MAC Patient Condition Mental Status/LOC: Same as Preop Cardiovascular: Satisfactory Nausea/Vomiting: Absent Respiratory: Satisfactory Pain: Controlled Complications: Absent Post Op Complications Complications None Follow Up Care/Instructions Patient Instructions None needed. Anesthesiology Discharge Order Discharge Order Patient is doing well, no complaints, stable vital signs, no apparent adverse anesthesia problems. No complications reported per nursing. KENYON SHERIDAN CRNA Feb 05, 2021 16:52
--- NOTE | 2021-02-05 17:12 | Cardiac Procedure Note ---
Cardiology Procedures Date of Procedure 02/05/21 Procedure name: Repositioning of ICD lead Repositioning of dual-chamber ICD generator DFT testing Procedure note 60 years old gentleman with severe cardiomyopathy underwent dual-chamber ICD implant with good sensing and capture activity, on the last interrogation it showed significant artifact suggestive of microdislodgment, patient continued to have good sensing and capture activity alternating with significant artifact and poor capture. I decided to explore and reposition the lead. After explaining the procedure to the patient all pros and cons were explained all questions were answered patient signed a consent then placed on the cardiac catheterization laboratory. A skin pocket was made and it was made extra-large to achieve adequate visualization of the pocket and the leads all the leads were released from all the adhesions. The device was explored and evaluated. Then I released the ventricular lead, the screw was retracted then I pulled back the lead and released it from its position. I placed a stylette in the lead and readvanced it and reposition it at a different location in the right ventricular apex and the screw was advanced. I tested the lead and appeared to be good sensing and capture activity. I secured the lead after giving additional length and did multiple sutures try to pull on the lead and it showed that the lead is well secured in position. Then I irrigated the pocket, there was significant amount of bleeding due to the use of aspirin and Plavix. After multiple irrigation I placed the device in a Benny pouch then I placed the device in the pocket and closed the first layer then used D-Stat solution injected in the pocket and held pressure for 7 minutes, no active bleeding was noted. At that point I closed the second layer and the pocket appeared to be clear. DFT testing Patient received additional sedation, then receive rapid pacing and T shock at 190 ms was successful in inducing ventricular fibrillation, charge time was 7.4- second, 30 J delivered and it was successful in terminating ventricular fibrillation. Device testing Right atrium 380 ohms, threshold 0.5 V at 0.4 ms, P wave 1.9 mV. Right ventricle 418 ohms, SVC 41 ohms, RV defib 30 ohms, threshold 0.5 V at 0.4 ms, R wave 14.8 mV Conclusion Successful retrieval of RV lead of ICD device and repositioning of the lead. Successful repositioning of the dual-chamber ICD generator Successful DFT testing with no complication Final diagnosis Congestive heart failure Ventricular tachycardia Hypertension Hyperlipidemia MICHELLE CANSECO MD Feb 05, 2021 17:12
[2021-02-05] MEDS ORDERED: NS IV 1000 ML 1,000 ML IV SCH (17:15)
[2021-02-05] MEDS ORDERED: PATIENT MAY USE OWN MEDS, ALL PO SCH (17:15)
--- NOTE | 2021-02-05 17:56 | Diagnostic Imaging Report ---
EXAMINATION: Chest 1 view. HISTORY: pacemaker COMPARISON: 02/05/2021. FINDINGS: Stable enlargement of the cardiac silhouette. Left-sided cardiac pacemaker is present and appears to be overlying the left upper chest. No pleural effusion or pneumothorax. A thin metallic device overlies the left upper chest in the location of previously seen pacemaker. The osseous structures are intact. IMPRESSION: Surgical changes from pacemaker placement without pneumothorax or other acute radiographic abnormality in the chest. Dictated by: Dictated on workstation # [id number]
[2021-02-05] MEDS: KCL 20 MEQ TAB (K-DUR) PO SCH (18:42)
[2021-02-05] MEDS: FUROSEMIDE 40 MG (LASIX) TAB PO SCH (18:42)
[2021-02-05] MEDS: AMITRIPTYLINE 50 MG (ELAVIL) TAB PO SCH (20:51)
[2021-02-05] MEDS: SACUBITRIL/VALSARTAN 24/26 MG (ENTRESTO) TABLET PO SCH (20:51)
[2021-02-05] MEDS ORDERED: SACUBITRIL PO SCH (21:00)
[2021-02-05] MEDS ORDERED: VALSARTAN PO SCH (21:00)
[2021-02-05] MEDS ORDERED: NON-FORMULARY MEDICATION 1 EA EA (Liraglutide (Victoza 3-Pak) 1.8 MG) SC SCH (21:00)
[2021-02-05] MEDS ORDERED: [UNRECOGNIZED DRUG - OTHER] PO SCH (21:00)
[2021-02-05] MEDS ORDERED: NON-FORMULARY MEDICATION 1 EA EA (Carvedilol 25 MG) PO SCH (21:00)
[2021-02-06 03:01] LABS: HEMATOCRIT 42 % (40-54); HEMOGLOBIN 13.8 g/dL (13.3-17.7); MEAN CORPUSCULAR HEMOGLOBIN 31 pg (25-34); MEAN CORPUSCULAR HGB CONC 33 g/dL (32-36); MEAN CORPUSCULAR VOLUME 94 fL (80-99); PLATELET COUNT 122 10^3/uL (130-400); WHITE BLOOD COUNT 9.1 10^3/uL (4.3-11.0)
[2021-02-06 03:09] LABS: ALBUMIN 3.2 GM/DL (3.2-4.5); POTASSIUM 4.8 MMOL/L (3.6-5.0)
[2021-02-06 03:10] LABS: CALCIUM 8.8 MG/DL (8.5-10.1)
[2021-02-06 03:11] LABS: TOTAL PROTEIN 5.8 GM/DL (6.4-8.2)
[2021-02-06 03:13] LABS: BILIRUBIN,TOTAL 1.2 MG/DL (0.1-1.0)
[2021-02-06 03:15] LABS: CREATININE SERUM 1.54 MG/DL (0.60-1.30)
[2021-02-06 03:50] VITALS: BP 164/108
[2021-02-06] MEDS: FUROSEMIDE 40 MG (LASIX) TAB PO SCH ×2 (06:17→17:16)
[2021-02-06] MEDS ORDERED: LEVOTHYROXINE 25 MCG (LEVOTHROID) TAB PO SCH (06:30)
[2021-02-06] MEDS ORDERED: CEFU500T63 PO (07:09)
--- NOTE | 2021-02-06 07:10 | Discharge Inst-Post CATH ---
Discharge Inst-CATH/EP Problems Reviewed?: Yes Post Cardiac Cath/EP D/C Inst Follow Up/Plan Appointment with Dr Peraza in one week <b>CARDIAC CATH/EP PROCEDURE DISCHARGE INSTRUCTIONS</b> ACTIVITY * Go Home directly and rest. * Limit activity of the leg (or wrist if it was used) for 7 days including aerobics, swimming, jogging, bicycling, etc. * Restrict stair-climbing for 7 days if possible, if not, climb up with your non-cath leg, then bring together on the same step. * Avoid lifting, pushing, pulling or excessive movement of the affected extremity for 7 days. * Customary sexual activity may be resumed after 2 days-use caution not to use a position that strains or causes pain to the affected extremity. * No driving for 24 hours. * NO SMOKING. * Avoid straining for bowel movements for 7 days. * Gentle walking on level ground is allowed. * Returning to work will depend on the type of procedure and the results. Your doctor will discuss this with you. CALL YOUR DOCTOR FOR ANY OF THE FOLLOWING: *If bleeding from the puncture site occurs- Apply gentle pressure to site with clean cloth and call your doctor or EMS. * If a knot or lump forms under the skin, increases in size, or causes pain. * If bruising appears to be worsening or moving further down your leg instead of disappearing. * Temperature above 101 F. CARE OF YOUR GROIN INCISION; * Bruising or purple discoloration of the skin near the puncture site is common. * You may shower only, no bathtub bathing for 5 days. Be careful to avoid slipping as your leg may feel stiff. * If a closure device was used on your femoral artery, please see the attached guide regarding care of the device and your leg. * Leave dressing on FOR 24 hours. CARE OF YOUR WRIST INCISION; * Bruising or purple discoloration of the skin near the puncture site is common. * You may shower. * DO NOT submerge wrist. * Leave dressing on FOR 24 hours. MICHELLE PERAZA MD Feb 06, 2021 07:10
[2021-02-06 07:45] VITALS: BP 155/98
[2021-02-06] MEDS: KCL 20 MEQ TAB (K-DUR) PO SCH ×2 (08:00→17:16)
[2021-02-06] MEDS: SACUBITRIL/VALSARTAN 24/26 MG (ENTRESTO) TABLET PO SCH ×2 (08:00→21:21)
[2021-02-06] MEDS: TAMSULOSIN 0.4 MG (FLOMAX) CAP PO SCH (08:00)
--- NOTE | 2021-02-06 08:57 | Cardiology Progress Note ---
Subjective Date Seen by Provider: Feb 06, 2021 Time Seen by Provider: 08:55 Subjective/Events-last exam Patient was seen at bedside, dressing over the ICD site, had significant bleeding overnight Review of Systems General: No Chills, No Night Sweats, No Fatigue, No Malaise, No Appetite, No Other HEENT: No Head Aches, No Visual Changes, No Eye Pain, No Ear Pain, No D ysphasia, No Sinus Congestion, No Post Nasal Drip, No Sore Throat, No Other Pulmonary: No Dyspnea, No Cough, No Pleuritic Chest Pain, No Other Cardiovascular: No: Chest Pain, Palpitations, Orthopnea, Paroxysmal Noc. Dyspnea, Edema, Lt Headedness, Other Objective-Cardiology Exam Last Set of Vital Signs Vital Signs 02/06/21 02/06/21 07:45 08:00 Temp 37.3 Pulse 98 Resp 34 B/P (MAP) 155/98 (117) Pulse Ox 98 O2 Delivery Room Air I&O Intake and Output 02/05/21 23:59 Intake Total 800 ml Balance 800 ml Intake Oral 800 ml # Voids 1 Daily Weight Change No General: Alert, Oriented X3, Cooperative HEENT: Atraumatic, PERRLA Neck: Supple, No JVD, No Thyromegaly Lungs: Clear to Auscultation, Normal Air Movement Heart: Regular Rate, Normal S1, Normal S2, No Murmurs Abdomen: Normal Bowel Sounds, Soft, No Tenderness, No Hepatosplenomegaly, No Masses Extremities: No Clubbing, No Cyanosis, No Edema, Normal Pulses, No Tenderness/Swelling Skin: No Rashes, No Breakdown, No Significant Lesion Neuro: Normal Gait, Normal Speech, Strength at 5/5 X4 Ext, Normal Tone, Sensation Intact Psych/Mental Status: Mental Status NL, Mood NL Results Lab Laboratory Tests 02/05/21 12:33 02/06/21 02:52 A/P-Cardiology Admission Diagnosis Congestive heart failure Coronary artery disease Hypertension Hyperlipidemia Assessment/Plan Dual-chamber ICD, microdislodgment of the ventricular lead, status post readj ustment of the lead, patient had significant bleeding during the procedure requiring extensive cauterization, he continued to stabilize been starting to bleed again, D-Stat solution was injected and manual pressure applied during the procedure, later that night started to bleed again, currently I am holding aspirin and Plavix and continue with compression and monitor. ICD testing showing good sensing and capture activity. Continue to monitor Congestive heart failure, chronic compensated left ventricular systolic dysfunction, continue to monitor Coronary artery disease, has been on aspirin Plavix, hold for now due to the active bleeding Hypertension, monitor blood pressure Hyperlipidemia I will evaluate CYP 2C19 level MICHELLE CANSECO MD Feb 06, 2021 08:57
[2021-02-06 11:40] VITALS: BP 138/90
[2021-02-06 15:45] VITALS: BP 125/77
[2021-02-06] MEDS ORDERED: NS IV 1000 ML 1,000 ML ONE (16:15)
[2021-02-06 19:21] VITALS: BP 135/88
[2021-02-06] MEDS: AMITRIPTYLINE 50 MG (ELAVIL) TAB PO SCH (21:22)
[2021-02-07 00:10] VITALS: BP 136/78
[2021-02-07 04:13] VITALS: BP 144/92
[2021-02-07] MEDS: FUROSEMIDE 40 MG (LASIX) TAB PO SCH (06:20)
[2021-02-07] MEDS ORDERED: LEVOTHYROXINE 25 MCG (LEVOTHROID) TAB PO SCH (06:30)
[2021-02-07] MEDS: KCL 20 MEQ TAB (K-DUR) PO SCH (08:00)
[2021-02-07] MEDS: TAMSULOSIN 0.4 MG (FLOMAX) CAP PO SCH (08:00)
[2021-02-07] MEDS: SACUBITRIL/VALSARTAN 24/26 MG (ENTRESTO) TABLET PO SCH (08:00)
[2021-02-07 08:17] VITALS: BP 154/95
--- NOTE | 2021-02-07 09:00 | Cardiology History & Physical ---
HPI-Cardiology Cardiology Consultation Date of Consultation 02/07/21 Date of Admission Time Seen by Provider: 08:57 Indication: ICD malfunction HPI 60 years old gentleman with history of congestive heart failure, coronary artery disease, CVA, had history of dual-chamber ICD implantation, appears to have microdislodgment of the ventricular lead, he was scheduled for repositioning of the lead and exploration of the ICD pocket and position. Patient underwent the procedure, had significant bleeding due to the fact that he was on aspirin Plavix, pressure dressing was applied. Kept additional 24 hours, evaluation today showed the site is better no active bleeding, new dressing was placed and he will be discharged home PMH-Cardiology Immunizations Up To Date Tetanus Booster (DTap): Less than 5yrs Date of Pneumonia Vaccine: Jul 13, 2012 Date of Influenza Vaccine: Mar 28, 2020 Seasonal Allergies Seasonal Allergies: No Surgeries Yes (herniated disk) Adenoidectomy, Gall Bladder, Joint Repacement, Tonsillectomy, Coronary Stent Respiratory No Cardiovascular Yes (stent placed) Congestive Heart Failure Neurological Yes Stroke, TIA, Traumatic Brain Injury Reproductive System Hx Reproductive Disorders: No Sexually Transmitted Disease: No Genitourinary Yes Benign Prostatic Hyperpl, Prostate Problems Gastrointestinal Yes Gastroesophageal Reflux Musculoskeletal Yes Arthritis, Chronic Back Pain Endocrine No Hypothyroidsim, Diabetes, Non-Insulin dep HEENT No Loss of Vision: Denies Hearing Impairment: Hard of Hearing Cancer No Psychosocial No Integumentary No Blood Transfusions No Adverse Rxn to Transfusion: No Social History Patient Social History Marrital Status: Employed/Student: retired Have you traveled recently?: No Alcohol Use?: No Family Hx Significant Family History: Heart Disease, Diabetes, Hypertension Family History: Congenital heart disease 03 MOTHER Family history: Diabetes mellitus 03 FATHER 03 MOTHER 09 SISTER ROS-Cardiology Review of Systems General: No Chills, No Night Sweats, No Fatigue, No Malaise, No Appetite HEENT: No Head Aches, No Visual Changes, No Eye Pain, No Ear Pain, No Dysphasia, No Sinus Congestion, No Post Nasal Drip, No Sore Throat Pulmonary: No Dyspnea, No Cough, No Pleuritic Chest Pain Cardiovascular: No: Chest Pain, Palpitations, Orthopnea, Paroxysmal Noc. Dyspnea, Edema, Lt Headedness Gastrointestinal: No: Nausea, Vomiting, Abdominal Pain, Diarrhea, Constipation, Melena, Hematochezia Genitourinary: No Dysuria, No Frequency, No Incontinence, No Hematuria, No Retention Musculoskeletal: No: neck pain, shoulder pain, arm pain, back pain, hand pain, leg pain, foot pain Neurological: No: Weakness, Numbness, Incoordination, Change in speech, Confusion, Seizures Home Medications & Allergies Allergies: Coded Allergies: No Known Drug Allergies (Unverified , 01/30/10) Exam-Cardiology Vital Signs Vital Signs Date Time Temp Pulse Resp B/P (MAP) Pulse Ox O2 Delivery O2 Flow Rate FiO2 02/07/21 08:17 36.4 80 24 154/95 (114) 99 Room Air Exam General Appearance: Alert, Oriented X3, Cooperative, No Acute Distress HEENT: Atraumatic, PERRLA Respiratory: Clear to Auscultation, Normal Air Movement Cardiovascular: Regular Rate, Normal S1, Normal S2, No Murmurs Abdominal: Normal Bowel Sounds, Soft, No Tenderness, No Hepatosplenomegaly, No Masses Extremities: No Clubbing, No Cyanosis, No Edema, Normal Pulses, No Tenderness/Swelling Skin: No Rashes, No Breakdown, No Significant Lesion Neuro: Normal Gait, Normal Speech, Strength at 5/5 X4 Ext, Normal Tone, Sensation Intact Psych/Mental Status: Mental Status NL, Mood NL Results Labs Labs Laboratory Tests 02/06/21 21:04: Glucometer 183H Microbiology 02/05/21 MRSA Screen - Final, Complete MRSA not isolated A/P-Cardiology Admission Diagnosis Congestive heart failure Coronary artery disease Hypertension Hyperlipidemia Admission Status: Inpatient Order (span 2 midnights) Reason for Inpatient Admission: Active bleeding post ICD pocket exploration and repositioning of the lead Assessment/Plan Dual-chamber ICD, microdislodgment of the ventricular lead, status post readjustment of the lead, patient had significant bleeding during the procedure requiring extensive cauterization, he continued to stabilize been starting to bleed again, D-Stat solution was injected and manual pressure applied during the procedure, later that night started to bleed again, currently I am holding aspirin and Plavix, planning to discharge home, instructed him on holding aspirin and Plavix until Wednesday, February 10, 2021. ICD testing showing good sensing and capture activity. Continue to monitor Congestive heart failure, chronic compensated left ventricular systolic dysfunction, continue to monitor Coronary artery disease, has been on aspirin Plavix, hold for now due to the active bleeding History of CVA. Maintained on aspirin and Plavix Hypertension, monitor blood pressure Hyperlipidemia I will evaluate CYP 2C19 level Hospital course: Patient was monitored additional 24 hours, no active bleeding was noted. Site appeared to be healing well. Patient was started on antibiotic and he will be discharged home Final diagnosis: Congestive heart failure, chronic compensated left ventricular systolic dysfunction Coronary artery disease CVA Pacemaker/ICD malfunction MICHELLE CANSECO MD Feb 07, 2021 08:59
== END 2021-02-07 08:45 | disposition home or self-care (01) ==
LOC: CATH 15:28 → CSD 15:29 → CATH 18:07 → CSD 18:07 → CATH 02-06 08:54 → UNDOADMOB 02-06 08:55 → CSD 02-06 08:55 → UNDODISOB 02-07 08:45 → CSD 02-07 08:47 → CATH 02-07 08:47
PROVIDERS: ADMIT Internal Medicine Cardiovascular Disease; ATTEND Internal Medicine Cardiovascular Disease
DX: I47.2 Ventricular tachycardia (principal); I11.0 Hypertensive heart disease with heart failure; I50.20 Unspecified systolic (congestive) heart failure; E78.5 Hyperlipidemia, unspecified; I25.10 Atherosclerotic heart disease of native coronary artery without angina pectoris; J44.9 Chronic obstructive pulmonary disease, unspecified; M19.90 Unspecified osteoarthritis, unspecified site; E66.9 Obesity, unspecified; Z68.33 Body mass index [BMI] 33.0-33.9, adult; Z79.899 Other long term (current) drug therapy; Z79.82 Long term (current) use of aspirin; Z79.890 Hormone replacement therapy; Z87.891 Personal history of nicotine dependence
CPT/HCPCS: 71045; 80053 ×2; 81225; 82947 ×2; 85027 ×2; 85610; 85730; 87081; 93641; G0378; G0379; 36415; 99211

== ENCOUNTER 2021-03-19 09:37 | Outpatient (CLI) | payer OTHER ==
[~2021-03-19 09:37] MED LIST changes: +CEFU500T63 PO; -HEParin (CATH LAB) 1,000 ML IV ONE; -LIDOCAINE 1% INJ 20 ML 20 ML VIAL ONE; -MIDAZOLAM 5 MG/5 ML (VERSED) VIAL ONE; -NS IV 1000 ML 1,000 ML IV ONE; -NS IV 1000 ML 1,000 ML ONE; -ceFAZolin INJECTION 1,000 MG ONE; -ceFAZolin INJECTION 1,000 MG VIAL IV ONE; -fentaNYL INJ 100 MCG/2 ML AMP ONE
== END 2021-03-19 09:58 ==
LOC: SLEEP 09:37
PROVIDERS: ATTEND Family Medicine
DX: G47.33 Obstructive sleep apnea (adult) (pediatric) (principal)
CPT/HCPCS: G0399

== ENCOUNTER 2021-07-03 10:21 | Outpatient (CLI) | payer SELFPAY ==
[~2021-07-03] VITALS: Ht 172.7 cm; Wt 102.0 kg
[~2021-07-03 10:21] MED LIST changes: +POTA-179 PO; -POTA20TA15 PO
[2021-07-03 10:31] VITALS: BP 127/81
[2021-07-03] MEDS ORDERED: EPINEPHrine INJECTION 1 MG/ML AMP IM PRN (10:45)
[2021-07-03] MEDS ORDERED: SOTROVIMAB 500 MG/NS 100 ML IVPB IV ONE ×2 (10:45)
[2021-07-03] MEDS ORDERED: ONDANSETRON 4 MG/2 ML (SDV) Z0FRAN IV PRN (10:45)
[2021-07-03] MEDS ORDERED: diphenhydrAMINE 50 MG/ML INJ (BENADRYL) IV PRN (10:45)
[2021-07-03] MEDS ORDERED: ACETAMINOPHEN 500 MG TAB (TYLENOL) PO PRN (10:45)
[2021-07-03 11:58] VITALS: BP 157/87
== END 2021-07-03 12:25 | disposition home or self-care (01) ==
LOC: INFUSION 10:21
PROVIDERS: ATTEND Nurse Practitioner Family
DX: U07.1 COVID-19 (principal)

== ENCOUNTER → 2021-11-19 | Outpatient (CLI) | payer OTHER ==
--- NOTE | 2021-11-19 11:55 | Diagnostic Imaging Report ---
PROCEDURE: US Renal Bilateral. TECHNIQUE: Multiple real-time grayscale images were obtained over the kidneys in various projections bilaterally. INDICATION: Chronic kidney disease COMPARISON: 03/24/2018 FINDINGS: Both kidneys are normal in size and echogenicity. The right kidney measures 10.4 cm in length and the left is 10.8 cm. The cortical thickness and the cortical medullary differentiation is well maintained. Anechoic benign-appearing cyst is identified on the left and measures 1.5 x 1.5 x 1.4 cm. No suspicious solid masses are seen. There is no evidence of hydronephrosis or calculus on either side Limited views of the pelvis demonstrate mildly distended urinary bladder. Prevoid bladder volume measures 43 mm. Post void residual measures 11 mL. No large intraluminal masses or calculi are present. Prominent diffuse bladder wall thickening is identified. Ureteral jets cannot be adequately identified on either side. There is no ascites. IMPRESSION: 1. Benign-appearing left renal cyst. Otherwise, unremarkable Renal sonogram. 2. Prominent circumferential bladder wall thickening. This is greater than expected to be artifact related to underdistention. Cystitis may have a similar appearance. Detrusor hypertrophy from underlying bladder outlet obstruction is also consideration. Dictated by: Dictated on workstation # [id number]
== END ==
LOC: RAD 10:27
PROVIDERS: ATTEND Internal Medicine Nephrology
DX: I12.9 Hypertensive chronic kidney disease with stage 1 through stage 4 chronic kidney disease, or unspecified chronic kidney disease (principal); N18.2 Chronic kidney disease, stage 2 (mild); N25.81 Secondary hyperparathyroidism of renal origin; N28.1 Cyst of kidney, acquired; K82.9 Disease of gallbladder, unspecified
CPT/HCPCS: 76770

== ENCOUNTER → 2022-03-10 | Outpatient (CLI) | payer OTHER | LOC: CARD 11:00 | PROVIDERS: ATTEND Internal Medicine Cardiovascular Disease | DX: I10 Essential (primary) hypertension (principal); I25.10 Atherosclerotic heart disease of native coronary artery without angina pectoris | CPT/HCPCS: 93306 ==

== ENCOUNTER → 2022-03-25 | Outpatient (CLI) | payer OTHER ==
[~2022-03-25] VITALS: Ht 172 cm; Wt 109.0 kg
[~2022-03-25] MED LIST changes: +CATHETER FLUSH 10 ML SYR IVP PRN; +REGADENOSON 0.4 MG/5 ML SYR (LEXISCAN) IV ONE
[2022-03-25 09:06] VITALS: BP 129/91
--- NOTE | 2022-03-25 13:21 | Cardiology Stress Test Report ---
Stress Test Report Date of Procedure/Referring: Date of Procedure: Mar 25, 2022 PCP Mykel Carrillo MD Admitting Physician Admitting Physician: Attending Physician: Roger Peraza MD Indications: CP Baseline Heart Rate: 91 Baseline Blood Pressure: Blood Pressure Systolic: 129 Blood Pressure Diastolic: 91 Baseline Vitals Vital Signs Date Time Temp Pulse Resp B/P (MAP) Pulse Ox O2 Delivery O2 Flow Rate FiO2 03/25/22 09:06 100 129/91 (104) Baseline EKG: Baseline EKG: NSR Summary After explaining the procedure to the patient, he signed a consent and then brought to the stress nuclear laboratory. Patient received 0.4 mg Lexiscan for stress test, ECG, heart rate and blood pressure were monitored continuously. Resting and stress dose of radio tracer were injected, imaging was acquired and reviewed in short axis, horizontal long axis and vertical long axis views. TID: 1.05 SSS: 3 SDS: 3 EF: 33 1. Patient tolerated Lexiscan well 2. Baseline frequent PVCs and ventricular trigeminy noted at the beginning of the test and resolved later during the test 3. Diaphragmatic attenuation with mild ischemia involving the basal to mid inf erior 4. Dilated left ventricle with diffuse left ventricular hypokinesia with ejection fraction 33% Copy Copies To 1: MYKEL CARRILLO MD, BASHAR J MD Mar 25, 2022 13:21
== END ==
LOC: CARD 07:21
PROVIDERS: ATTEND Internal Medicine Cardiovascular Disease
DX: I25.10 Atherosclerotic heart disease of native coronary artery without angina pectoris (principal); I10 Essential (primary) hypertension
CPT/HCPCS: 78452; 93017; A9502

== ENCOUNTER → 2023-01-06 | Outpatient (CLI) | payer OTHER ==
[~2023-01-06] MED LIST changes: -CATHETER FLUSH 10 ML SYR IVP PRN; -REGADENOSON 0.4 MG/5 ML SYR (LEXISCAN) IV ONE
--- NOTE | 2023-01-06 14:21 | Diagnostic Imaging Report ---
INDICATION: CHRONIC RT HIP PAIN COMPARISON: None. FINDINGS: Two views of the right hip were obtained and show no fractures, dislocations, or other acute bony abnormalities. Joint spaces are well maintained throughout. The soft tissues appear unremarkable. No unexpected radiopaque foreign bodies are identified. IMPRESSION: Unremarkable radiographic exam of the right hip. Dictated by: Dictated on workstation # [id number]
== END ==
LOC: RAD 08:28
PROVIDERS: ATTEND Family Medicine
DX: Z12.11 Encounter for screening for malignant neoplasm of colon (principal); I10 Essential (primary) hypertension; M25.551 Pain in right hip; G89.29 Other chronic pain
CPT/HCPCS: 73502

== ENCOUNTER 2023-02-03 06:52 | Outpatient (CLI) | payer OTHER ==
[~2023-02-03] VITALS: Ht 172.7 cm; Wt 106.8 kg
[2023-02-04] MEDS ORDERED: AMLO-250 PO (10:33)
[2023-02-04] MEDS ORDERED: EMPA25TA PO (10:33)
[2023-02-04] MEDS ORDERED: FINE20TA PO (10:33)
[2023-02-04] MEDS ORDERED: ZINC50TA51 PO (10:49)
[2023-02-04] MEDS ORDERED: INSU100I10 SQ (10:49)
[2023-02-04] MEDS ORDERED: ASCO500T17 PO (10:49)
[2023-02-04] MEDS ORDERED: FAMO-119 PO (10:49)
[2023-02-04] MEDS ORDERED: SACU1TAB4 PO (10:49)
== END 2023-02-04 10:45 | disposition home or self-care (01) ==
LOC: PREOP 06:52
PROVIDERS: ATTEND Internal Medicine
DX: Z01.818 Encounter for other preprocedural examination (principal)

== ENCOUNTER 2023-02-12 09:19 | Day surgery (SDC) | payer MEDICARE, OTHER ==
[~2023-02-12] VITALS: Ht 172.7 cm; Wt 106.8 kg
[~2023-02-12 09:19] MED LIST changes: +AMLO-250 PO; +ASCO500T17 PO; +EMPA25TA PO; +FAMO-119 PO; +FINE20TA PO; +SACU1TAB4 PO; +ZINC50TA51 PO
[2023-02-12] MEDS ORDERED: LACTATED RINGERS 1,000 ML IV STA (09:34)
[2023-02-12 10:00] VITALS: BP 117/75
--- NOTE | 2023-02-12 10:25 | Pre-Op Note & Conscious Sedat ---
Pre-Operative Progress Note Date H&P Reviewed: Feb 12, 2023 Time H&P Reviewed: 10:24 History & Physical: H&P Reviewed, Patient Examed, No changes noted Pre-Op Diagnosis: screening Moderate Sedation PreProcedure ASA Score 2 Airway Lungs Heart ASA score ASA 1: a normal healthy patient ASA 2: a patient with a mild systemic disease (mid diabetes, controlled hypertension, obesity ASA 3: a patient with a severe systemic disease that limits activity (angina, COPD, prior Myocardial infarction) ASA 4: a patient with an incapacitating disease that is a constant threat to life (CHF, renal failure) ASA 5: a moribund patient not expected to survive 24 hrs. (ruptured aneurysm) ASA 6: a declared brain- patient whose organs are being harvested. For emergent operations, add the letter E after the classification Mallampati Classification Grade 2 Sedation Plan Analgesia, Amnesia, Plan communicated to team members, Discussed options with patient/fam, Discussed risks with patient/fam The patient is an appropriate candidate to undergo the planned procedure, sedation, and anesthesia. The patient immediately re-assessed prior to indication. DAREN GIBBS MD Feb 12, 2023 10:25
[2023-02-12] MEDS ORDERED: PROPOFOL INJECTION 50 ML IV ONE (10:59)
[2023-02-12 11:50] VITALS: BP 166/95
--- NOTE | 2023-02-12 11:50 | Progress Note-Post Operative ---
Post-Procedure Note Physician (s)/Soap Tender (s) Physician DAREN GIBBS MD Pre-Procedure Diagnosis Pre-Procedure Diagnosis: screening Post-Procedure Diagnosis Post-operative diagnosis: Prior to undergoing colonoscopy digital rectal evaluation was performed. Anal suture tone was normal and the perianal reflexes intact. No abnormalities noted on gentle suction and anal canal distal rectal vault or prostate. The colonoscope was then inserted into the rectum and under direct visualization advanced to the cecum. Careful inspection was made as the colonoscope was withdrawn. Quality the prep was suboptimal due to areas of retained stool such that about 5 to 10% of the colon was not well visualized. Findings: There are no evidence for internal/external hemorrhoids. The rectum was unremarkable as was the sigmoid colon. Present in the proximal descending colon was a 4 mm sessile polyp that was biopsied and ablated with no subsequent blood loss. Similar polyp was noted in the mid transverse colon 4 to 5 mm in size and sessile it was biopsied and ablated with hot forceps with no blood loss. The meter the transverse colon hepatic flexure ascending colon and cecum were unremarkable. Assessment: To 4 to 5 mm sessile polyps removed via hot forceps from the proximal descending colon and mid transverse colon with an otherwise normal colonoscopy to the cecum. Prep conditions however were suboptimal with about 5 to 10% of the colon not being well visualized secondary to retained stool. as long as there are no surprises on histopathology report would advocate consideration for repeat surveillance colonoscopy in 3 years. DAREN GIBBS MD Feb 12, 2023 11:50
[2023-02-12 12:35] VITALS: BP 166/95
--- NOTE | 2023-02-12 12:36 | Anesthesia-General Post-Op ---
MAC Patient Condition Mental Status/LOC: Same as Preop Cardiovascular: Satisfactory Nausea/Vomiting: Absent Respiratory: Satisfactory Pain: Controlled Complications: Absent Post Op Complications Complications None Follow Up Care/Instructions Patient Instructions None needed. Anesthesiology Discharge Order Discharge Order Patient is doing well, no complaints, stable vital signs, no apparent adverse anesthesia problems. No complications reported per nursing. JULIO C BARAKAT CRNA Feb 12, 2023 12:36
== END 2023-02-12 12:30 | disposition home or self-care (01) ==
LOC: ENDO 09:19
PROVIDERS: ATTEND Internal Medicine
DX: Z12.11 Encounter for screening for malignant neoplasm of colon (principal); D12.3 Benign neoplasm of transverse colon; D12.4 Benign neoplasm of descending colon; I25.10 Atherosclerotic heart disease of native coronary artery without angina pectoris; I11.0 Hypertensive heart disease with heart failure; I50.20 Unspecified systolic (congestive) heart failure; E11.9 Type 2 diabetes mellitus without complications; G47.33 Obstructive sleep apnea (adult) (pediatric); Z95.810 Presence of automatic (implantable) cardiac defibrillator; Z79.4 Long term (current) use of insulin; Z79.899 Other long term (current) drug therapy
CPT/HCPCS: 82947

== ENCOUNTER → 2023-04-22 | Outpatient (CLI) | payer MEDICARE, OTHER ==
--- NOTE | 2023-04-22 16:25 | Diagnostic Imaging Report ---
PROCEDURE: US Thyroid. TECHNIQUE: Multiple real-time grayscale images were obtained of the thyroid in various projections. INDICATION: History of nontoxic thyroid nodule. COMPARISON: None. FINDINGS: Both thyroid lobes demonstrate smooth and homogenous background echotexture. Color flow Doppler demonstrates normal and symmetric vascularity bilaterally. The right lobe measures 4.7 cm in length, 2.1 cm AP, and 1.9 cm transverse. The left lobe measures 3.6 cm in length, 1.2 cm AP, and 1.3 cm transverse. The isthmus measures 0.4 cm. Solid slightly hypoechoic nodule is seen in the mid aspect of the right lobe of the thyroid measuring 1.7 x 0.9 x 1.3 cm. IMPRESSION: 1. Nodule in the mid aspect of the right lobe of the thyroid measuring 1.7 cm. Findings correspond with a TI RADS 3 nodule and based on size criteria, follow-up in 12 months is recommended. Dictated by: Dictated on workstation # [id number]
== END ==
LOC: RAD 09:23
PROVIDERS: ATTEND Physician Assistant
DX: E04.1 Nontoxic single thyroid nodule (principal)
CPT/HCPCS: 76536